=== PATIENT | male | born 1955 | race Caucasian/White ===

== ENCOUNTER 2019-07-16 10:19 | Outpatient (CLI) | payer OTHER, SELFPAY ==
[2019-07-16 13:28] LABS: Blood Urea Nitrogen 10 mg/dL (9-20); Calcium 9.5 mg/dL (8.4-10.2); Carbon Dioxide 25 mmol/L (22-30); Chloride 100 mmol/L (98-107); Cholesterol 195 mg/dL (0-200); Estimated Glomerular Filt Rate > 60; Glucose 107 mg/dL (75-110); HDL Direct 53 mg/dL; Potassium 4.4 mmol/L (3.4-5.0); Sodium 137 mmol/L (137-145); Triglycerides 57 mg/dL (<150)
[2019-07-16 13:39] LABS: LDL Cholesterol Direct 131 mg/dL
[2019-07-16 13:59] LABS: Prostate Specific Antigen 1.9 ng/mL (< OR = 4.0)
== END 2019-07-16 10:20 | disposition home or self-care (01) ==
LOC: ANHWCLAB 10:24
PROVIDERS: PCP Internal Medicine; Visit Provider Internal Medicine
DX: R03.0 Elevated blood-pressure reading, without diagnosis of hypertension (principal); Z12.5 Encounter for screening for malignant neoplasm of prostate; E78.5 Hyperlipidemia, unspecified
CPT/HCPCS: 36415; 80048; 80061; 84153

== ENCOUNTER 2020-02-11 06:59 | Outpatient (CLI) | payer MEDICARE, OTHER, SELFPAY ==
--- NOTE | ~2020-02-11 | XR_ITS ---
EXAMINATION: XR abdomen/kub 1V INDICATION: Unspecified right-sided abdominal pain TECHNIQUE: Supine views of the abdomen were obtained on 2 radiographs. COMPARISON: None FINDINGS: The bowel gas pattern is normal. Phleboliths are noted in the pelvis. There is moderate lum bar spondylosis. No dilated loops of bowel are evident. IMPRESSION: 1. Unremarkable abdominal radiograph. Reviewed, dictated and finalized at location A.
== END 2020-02-11 07:00 | disposition home or self-care (01) ==
PROVIDERS: PCP Internal Medicine; Visit Provider Internal Medicine
DX: R10.9 Unspecified abdominal pain (principal)
CPT/HCPCS: 74018

== ENCOUNTER 2020-02-18 06:58 | Outpatient (CLI) | payer MEDICARE, OTHER, SELFPAY ==
--- NOTE | ~2020-02-18 | XR_ITS ---
EXAMINATION: XR chest 2V 02/18/2020 07:24 INDICATION: Chest pain PROCEDURE: 2 view chest COMPARISON: No prior studies for comparison. FINDINGS: The lungs are clear. The cardiomediastinal silhouette is within normal limits. There are no pleural effusions. There is no pneumothorax suspected. IMPRESSION: 1: NO ACUTE CARDIOPULMONARY DISEASE. Reviewed, dictated and finalized at location A.
== END 2020-02-18 06:59 | disposition home or self-care (01) ==
PROVIDERS: PCP Internal Medicine; Visit Provider Internal Medicine
DX: R07.9 Chest pain, unspecified (principal)
CPT/HCPCS: 71046

== ENCOUNTER 2020-03-31 13:45 | Outpatient (CLI) | payer MEDICARE, OTHER, SELFPAY ==
--- NOTE | ~2020-03-31 | XR_ITS ---
EXAMINATION: XR hip LT min 2V DATE: 03/31/2020 14:31 INDICATION: Left hip pain. TECHNIQUE: 2 views of left hip were obtained. COMPARISON: Abdomen radiographs 02/11/20 FINDINGS: Bone alignment is normal. No fracture. Osteopenia is noted. There is mild left hip osteoart hritis. IMPRESSION: 1. Mild left hip osteoarthritis. Reviewed, dictated and finalized at location A.
[2020-03-31 14:16] LABS: Hematocrit 29.4 % (42.0-52.0); Hemoglobin 9.5 g/dL (14.0-18.0); Immature Platelet Fraction Pct 10.6 % (0.9-11.2); Mean Corpuscular HGB Conc 32.3 g/dl (32-36); Mean Corpuscular Hemoglobin 30.4 pg (26-34); Mean Corpuscular Volume 94.2 fl (80-100); Platelet Count Result 41 k/mm3 (150-375); Red Blood Count 3.12 M/mm3 (4.6-6.20); Red Cell Distribution Width 17.8 % (11.5-14.5); White Blood Count 11.4 K/mm3 (4.5-10.0)
[2020-03-31 14:27] LABS: Alanine Aminotransferase 23 U/L (4-50); Alkaline Phosphatase 310 U/L (38-126); Anion Gap 10 mmol/L (8-16); Aspartate Amino Transferase 60 U/L (17-59); Blood Urea Nitrogen 21 mg/dL (9-20); Calcium 10.7 mg/dL (8.4-10.2); Carbon Dioxide 29 mmol/L (22-30); Chloride 99 mmol/L (98-107); Estimated Glomerular Filt Rate > 60; Glucose 127 mg/dL (75-110); Potassium 4.6 mmol/L (3.4-5.0); Sodium 138 mmol/L (137-145)
[2020-03-31 15:22] LABS: Atypical Lymphocytes Present; Band Neutrophils Percent 2 % (0-6); Eosinophils Absolute Manual 0.11 K/mm3 (0.02-0.5); Eosinophils Percent Manual 1 % (0-4); Lymphocytes Absolute Manual 5.01 K/mm3 (1.1-4.5); Metamyelocytes Percent 6 %; Monocytes Absolute Manual 1.02 K/mm3 (0.1-0.90); Monocytes Percent Manual 9 % (3-9); Neutrophils Absolute Manual 4.56 K/mm3 (1.3-6.7); Neutrophils Percent Manual 38 % (46-73); Nucleated Red Blood Cells 39 %; Platelet Estimate Decreased (Adequate); Total Cells Counted 100
[2020-03-31 15:23] LABS: Polychromasia 1+ (NORMAL)
== END 2020-03-31 13:46 | disposition home or self-care (01) ==
PROVIDERS: PCP Internal Medicine; Visit Provider Internal Medicine
DX: R63.4 Abnormal weight loss (principal); M25.559 Pain in unspecified hip
CPT/HCPCS: 36415; 73502; 80053; 85025; 85055

== ENCOUNTER 2020-04-03 15:35 | Outpatient (CLI) | payer MEDICARE, OTHER, SELFPAY ==
[2020-04-03 16:21] LABS: Parathyroid Intact 7.6 pg/mL (7.5-53.5)
[2020-04-03 17:06] LABS: Iron 100 ug/dL (49-181)
[2020-04-03 17:16] LABS: Percent Iron Saturation 34 % (20-50)
[2020-04-03 18:31] LABS: Ferritin > 2000.00 ng/mL (11.1-264)
[2020-04-06 05:35] LABS: Ionized Calcium 5.7 mg/dL (4.8-5.6)
[2020-04-06 21:08] LABS: Mitochondrial (M2) Ab (IgG) <=20.0 U (<=20.0)
[2020-04-07 14:37] LABS: Red Blood Cell Folate >1000 ng/mL RBC (>280)
[2020-04-08 20:49] LABS: Alkaline Phosphatase 268 U/L (35-144); Macrohepatic Isoenzymes 0 % (<=0)
== END 2020-04-03 15:36 | disposition home or self-care (01) ==
PROVIDERS: PCP Internal Medicine; Visit Provider Internal Medicine
DX: C64.9 Malignant neoplasm of unspecified kidney, except renal pelvis (principal); R74.8 Abnormal levels of other serum enzymes; E83.52 Hypercalcemia
CPT/HCPCS: 36415; 82330; 82607; 82728; 82747; 83519; 83520; 83540; 83550; 83970; 84075; 84080

== ENCOUNTER 2020-04-04 13:56 | Outpatient (RCR) | payer MEDICARE, OTHER, SELFPAY ==
--- NOTE | 2020-04-04 15:13 | PTOPEVAL ---
PHYSICAL THERAPY EVALUATION AND PLAN OF CARE Thank you for referring Brent Garcia to [facility] [place] Camilo will be on hold until he follows up with Dr. Mix. We will follow Camilo and update his care plan as needed. He was provided with HEP. Please review, sign, date and return this plan of care KATIE. I agree with and certify that the following plan of care is medically necessary. Referring Physician Date Attending Provider: Fer Wayne, Evaluation Diagnosis left groin pain, abdominal pain Onset January 2020 Subjective Information Brent is here today with c/o Query Text:As Reported By Patient/ left hip pain following what Family felt like a strain (he is familiar with groin strain). Since then he has experienced no change in hip pain, an increase in abdominal pain, and a new onset of bilateral rib pain. States that the rib pain is sometimes worse than hip pain and very much limits his mobility, especially bed mobility. He notes a 20# weight loss since January. He has had some recent blood work that is unclear but has definitely identified Vitamin B12 deficit which can lead to weight loss, decreased energy, and muscle tightness. He has very poor sleep right now and he has a very poor appetite. He was referred to Dr. Mix today. Has yet to set up an appointment. Diagnostic Tests X-Rays For This Problem Yes: abdomen, chest, x-ray: negative except for arthritis of hip and spine Prior Level of Function Medications: Celecoxib (replaced ibuprofen) Self Report Pain Assessment Left Hip(s) Reported Pain Level 6 Pain Description Aching,Pulling,Radiating, Shooting Pain Frequency Chronic,Continuous Lowest Pain Intensity 3 Greatest Pain Intensity 9 Pain Score Pain Score 6: Self Report Interventions Used Interventions Used By Clinicians Exercise Pain Relief Interventions Used By Heat,Inactivity/Rest,Water Patient Modality Lower Extremity Range of Motion General Lower Ext
--- NOTE | 2020-05-03 13:30 | PCPTNOTE ---
PHYSICAL THERAPY DISCHARGE NOTE Attending Provider: Fer Wayne DO Patient:Brent Garcia Date of :1955 I evaluated Brent for hip pain on 04/04/2020. He was placed on hold while he pursued an oncology referral. He has since been diagnosed with stage 4 prostate cancer metastasized left pelvis, lumbar spine, and left lower ribs. He will not be pursuing physical therapy at this time, but would be interested in the future when appropriate. Brent will be discharged at this time. Thank you for referring this patient to [facility]. Please review, sign, date and return this discharge summary KATIE. I have been updated about the patient's current status and I agree with discharge from the above service at this time. Referring Physician Date
== END 2020-05-05 08:43 | disposition home or self-care (01) ==
LOC: ANHPT 13:56
PROVIDERS: PCP Internal Medicine; Referring Provider Internal Medicine; Visit Provider Internal Medicine
DX: M25.559 Pain in unspecified hip (principal); R10.30 Lower abdominal pain, unspecified
CPT/HCPCS: 97162

== ENCOUNTER 2020-04-11 09:43 | Outpatient (CLI) | payer MEDICARE, OTHER, SELFPAY ==
--- NOTE | ~2020-04-11 | XR_ITS ---
EXAMINATION: BONE SURVEY/METASTATIC SURVEY DATE: 04/11/2020 INDICATION: Plasma cell disorder TECHNIQUE: A skeletal survey was performed including AP views of the chest, abdomen and pelvis; AP an d lateral/lateral swimmers views of the cervical, thoracic and lumbar spine; lateral view of the skul l, and AP and lateral views of the appendicular skeleton excluding the hands and feet. COMPARISON: None. FINDINGS: Multiple bilateral rib fractures with varying degrees of callus formation likely combination of subac [place] and chronic. Diffuse osteopenia. No discrete suspicious lytic or blastic bone lesions. Mild upper thoracic levocurvature with moderate thoracic spondylosis. Mild lumbar dextrocurvature with left-tavares ed wedging of L3 with 20% left-sided vertebral body height loss which appears new since the KUB perfo rmed 02/11/2020. Large degenerative loose body at the lateral gutter of the right suprapatellar pouch. Indolent solid appearing periosteal reaction along the bilateral femoral and tibial diaphyses most li belkys either related to venous stasis or enthesopathic ossification. IMPRESSION: 1. No suspicious lytic or blastic bone lesions. 2. Diffuse osteopenia with multiple bilateral rib fractures of varying ages and recent mild L3 compre ssion fracture with 20% left-sided vertebral body height loss. Reviewed, dictated and finalized at location A. WATER MACHINE OPERATOR IMPRESSION: 1. No suspicious lytic or blastic bone lesions. 2. Diffuse osteopenia with multiple bilateral rib fractures of varying ages and recent mild L3 compression fracture with 20% left-sided vertebral body height loss.
[2020-04-11 10:20] LABS: Hemoglobin 7.8 g/dL (14.0-18.0); Immature Platelet Fraction Pct 13.1 % (0.9-11.2); Mean Corpuscular HGB Conc 32.5 g/dl (32-36); Mean Corpuscular Hemoglobin 30.5 pg (26-34); Mean Corpuscular Volume 93.8 fl (80-100); Red Blood Count 2.56 M/mm3 (4.6-6.20); Red Cell Distribution Width 19.5 % (11.5-14.5); White Blood Count 9.3 K/mm3 (4.5-10.0)
[2020-04-11 10:22] LABS: Platelet Count Result 20 k/mm3 (150-375)
[2020-04-11 10:40] LABS: Band Neutrophils Percent 8 % (0-6); Eosinophils Absolute Manual 0.09 K/mm3 (0.02-0.5); Eosinophils Percent Manual 1 % (0-4); Lymphocytes Absolute Manual 4.65 K/mm3 (1.1-4.5); Metamyelocytes Percent 4 %; Monocytes Absolute Manual 0.46 K/mm3 (0.1-0.90); Monocytes Percent Manual 5 % (3-9); Neutrophils Absolute Manual 3.72 K/mm3 (1.3-6.7); Neutrophils Percent Manual 32 % (46-73); Nucleated Red Blood Cells 19 %; Total Cells Counted 100
[2020-04-11 10:41] LABS: Atypical Lymphocytes Present; Hypochromasia 2+ (NORMAL); Platelet Estimate Decreased (Adequate)
[2020-04-11 12:06] LABS: Iron 68 ug/dL (49-181)
[2020-04-11 12:18] LABS: Immunoglobulin A 122 mg/dL (70-400); Immunoglobulin G 1135 mg/dL (700-1600); Immunoglobulin M 39 mg/dL (40-230)
[2020-04-11 12:23] LABS: Percent Iron Saturation 21 % (20-50)
[2020-04-11 13:22] LABS: Erythrocyte Sedimentation Rate > 140 mm/hr (0-20)
[2020-04-11 15:20] LABS: Lactate Dehydrogenase 3005 U/L (313-618)
[2020-04-11 15:41] LABS: Ferritin > 2000.00 ng/mL (11.1-264)
[2020-04-13 22:58] LABS: Kappa\\Lambda Light Chains 0.82 (0.26-1.65); Lambda Light Chain 34.2 mg/L (5.7-26.3)
[2020-04-16 06:20] LABS: Albumin 3.3 g/dL (3.8-4.8); Alpha 1 Globulin 0.7 g/dL (0.2-0.3); Alpha 2 Globulin 0.6 g/dL (0.5-0.9); Beta 1 Globulin 0.5 g/dL (0.4-0.6); Gamma Globulin 0.9 g/dL (0.8-1.7); Protein, Total 6.4 g/dL (6.1-8.1)
== END 2020-04-11 09:44 | disposition home or self-care (01) ==
PROVIDERS: PCP Internal Medicine; Visit Provider Internal Medicine Hematology & Oncology
DX: D72.9 Disorder of white blood cells, unspecified (principal); D50.9 Iron deficiency anemia, unspecified; R97.20 Elevated prostate specific antigen [PSA]; M85.88 Other specified disorders of bone density and structure, other site
CPT/HCPCS: 36415; 77075; 82728; 82784; 83540; 83550; 83615; 83883; 84153; 84155; 84165; 85025; 85055; 85652

== ENCOUNTER 2020-04-12 07:38 | Outpatient (CLI) | payer MEDICARE, OTHER, SELFPAY ==
--- NOTE | ~2020-04-12 | CT_ITS ---
EXAMINATION: CT abdomen pelvis w con INDICATION: Plasma cell disorder TECHNIQUE: Computed tomographic images of the abdomen and pelvis were obtained after the administrati on of 100 cc of Omnipaque 350 intravenous contrast. The dose-length product (DLP) was 480.42 mGy-cm. Automated exposure control and iterative reconstruction technique were employed. COMPARISON: None available FINDINGS: There are small pleural effusions. Minimal dependent atelectasis is present in the lung bas es. The heart size is normal. Cysts of the liver measure up to 1.9 cm in the right hepatic lobe. The spleen, pancreas, and adrenal glands are normal. Stones are present in the nondistended gallbladder. Cysts of the kidneys measure up to 10 mm on the left. No pathologically enlarged abdominal or pelvic lymph nodes are identified. There is no free intraperitoneal gas or evidence of bowel obstruction. Th ere are widespread mixed lytic and sclerotic lesions throughout the visualized osseous structures. Th ere are multiple healing bilateral rib fractures. Fractures of the right L3 and L4 transverse process es are noted. There is a healing fracture of the left iliac wing. There is soft tissue density surrou nding the iliac wing at the site of fracture, likely combination of hematoma and periosteal reaction. IMPRESSION: 1. Widespread lytic and sclerotic lesions throughout the visualized osseous structures with fractures of the left iliac wing, multiple ribs, and the right L3 and L4 transverse processes. Reviewed, dictated and finalized at location A. NISTRATOR PESTICIDE IMPRESSION: 1. Widespread lytic and sclerotic lesions throughout the visualized osseous str uctures with fractures of the left iliac wing, multiple ribs, and the right L3 and L4 transverse processes.
== END 2020-04-12 07:39 | disposition home or self-care (01) ==
PROVIDERS: PCP Internal Medicine; Visit Provider Internal Medicine Hematology & Oncology
DX: D72.9 Disorder of white blood cells, unspecified (principal); R93.7 Abnormal findings on diagnostic imaging of other parts of musculoskeletal system
CPT/HCPCS: 74177; Q9967

== ENCOUNTER 2020-04-15 01:03 | Outpatient (CLI) | payer MEDICARE, OTHER, SELFPAY ==
[2020-04-15 22:26] LABS: SARS-CoV-2 RNA PCR Negative
== END 2020-04-15 01:04 | disposition home or self-care (01) ==
LOC: ANHCOVIDDT 01:04
PROVIDERS: PCP Internal Medicine; Visit Provider Internal Medicine Hematology & Oncology
DX: Z01.818 Encounter for other preprocedural examination (principal); Z20.828 Contact with and (suspected) exposure to other viral communicable diseases
CPT/HCPCS: 87635; C9803; U0003

== ENCOUNTER → 2020-04-18 02:45 | Day surgery (SDC) | payer MEDICARE, OTHER, SELFPAY ==
[2020-04-17 08:44] VITALS: BMI 24.4
--- NOTE | ~2020-04-18 | BM_ITS ---
EXAMINATION: CCL bone marrow asp w bx diag ORDER COMPLETED DATE: 04/18/2020 09:37 INDICATION: Plasma cell disorder TECHNIQUE: A time-out was performed to verify the patient's name, date of , and procedure to b e performed. The procedure including the risks, benefits, and alternatives was discussed with the pat ient. Risks discussed included bleeding and infection. The patient understood the risks and agreed to proceed. The skin overlying the left posterior iliac spine was prepped and draped in usual sterile f ashion. Anesthetic was administered with 1% lidocaine subcutaneously. Systemic analgesia was provided with 75 mcg fentanyl IV. An 11 gauge needle was inserted into the ilium with fluoroscopic guidance. Template was made at bone marrow aspiration which yielded minimal marrow, therefore the needle was ad vanced and a core marrow biopsy was obtained for touch prep. An 8 gauge needle was then inserted into the ilium with fluoroscopic guidance. 2 additional core bone marrow biopsies were obtained. There we re no immediate complications. Fluoroscopy exposure time was 0.1 minutes. The total number of images was 13. FINDINGS: Real-time fluoroscopy demonstrates a marker and subsequently core biopsy needle projecting over the left posterior iliac spine. IMPRESSION: 1. Successful fluoro-guided bone marrow core biopsy. Reviewed, dictated and finalized at location A. MOBILE SERVICE ADVISOR
[2020-04-18 07:26] VITALS: BP 117/65; PULSE 104; RESP 18; TEMP 36.1; O2SAT 95; BMI 23.4
[2020-04-18 07:39] LABS: Immature Platelet Fraction Pct 16.3 % (0.9-11.2); Mean Corpuscular HGB Conc 32.5 g/dl (32-36); Mean Corpuscular Hemoglobin 31.3 pg (26-34); Mean Corpuscular Volume 96.2 fl (80-100); Red Blood Count 2.11 M/mm3 (4.6-6.20); Red Cell Distribution Width 20.2 % (11.5-14.5); White Blood Count 14.2 K/mm3 (4.5-10.0)
[2020-04-18 07:48] LABS: Hemoglobin 6.6 g/dL (14.0-18.0)
[2020-04-18 07:49] LABS: Hematocrit 20.3 % (42.0-52.0)
[2020-04-18 07:50] LABS: Platelet Count Result 22 k/mm3 (150-375)
[2020-04-18 08:11] LABS: Prothrombin Time 14.1 Seconds (11.1-14.7)
[2020-04-18 09:41] VITALS: BP 111/71; PULSE 99; RESP 18; TEMP 37; O2SAT 99
[2020-04-18 09:55] VITALS: BP 113/80; PULSE 97; RESP 15; O2SAT 99
[2020-04-18 10:10] VITALS: BP 111/79; PULSE 93; RESP 16; O2SAT 98
[2020-04-18 10:25] VITALS: BP 121/95; PULSE 97; RESP 14; O2SAT 95
[2020-04-18 10:40] VITALS: BP 111/76; PULSE 97; RESP 14; O2SAT 97
== END | disposition home or self-care (01) ==
PROVIDERS: Radiology Diagnostic Radiology; PCP Internal Medicine; Visit Provider Internal Medicine Hematology & Oncology
DX: C79.51 Secondary malignant neoplasm of bone (principal)
CPT/HCPCS: 36415; 38222; 85027; 85055; 85610; 88305; 88313; 88333; 88342; 88365; J2250; J3010; J7040

== ENCOUNTER 2020-04-27 07:00 | Outpatient (RCR) | payer MEDICARE, OTHER, SELFPAY ==
[2020-04-27] VITALS (10 sets, daily range): BP systolic 99–128; BP diastolic 60–88; PULSE 84–101; RESP 16–18; TEMP 36.6–37.6; O2SAT 96–100
[2020-04-27 07:30] LABS: Hemoglobin 5.1 g/dL (14.0-18.0)
[2020-04-27 07:31] LABS: Hematocrit 16.1 % (42.0-52.0)
[2020-04-27] MEDS: ACETAMINOPHEN 325 MG TABLET 650 MG PO (08:45)
[2020-04-27] MEDS: diphenhydrAMINE HCl CAP 25 MG CAPSULE PO (08:46)
[2020-04-27] MEDS: SODIUM CHLORIDE 0.9% IV 250 ML 30 ML IV CONT (08:46)
[2020-04-27] MEDS: FUROSEMIDE INJ 40 MG/4 ML VIAL 20 MG IV PUSH (11:56)
== END 2020-07-26 23:59 | disposition home or self-care (01) ==
LOC: ANHCPCTRAN 07:00
PROVIDERS: PCP Internal Medicine; Visit Provider Internal Medicine Hematology & Oncology
DX: C61 Malignant neoplasm of prostate (principal); C79.51 Secondary malignant neoplasm of bone
CPT/HCPCS: 36415; 36430; 85014; 85018; 86850; 86900; 86901; 86923; 96374; A9270; J1940; J7050; P9016

== ENCOUNTER 2020-05-02 09:36 | Outpatient (CLI) | payer MEDICARE, OTHER, SELFPAY ==
--- NOTE | ~2020-05-02 | NM_ITS ---
EXAMINATION: NM bone scan whole body DATE: 05/02/2020 12:05 INDICATION: Prostate cancer metastatic to bone. TECHNIQUE: 24.5 mCi Tc-99m HDP was administered intravenously. Delayed whole-body scintigrams were o btained. COMPARISON: CT abdomen and pelvis 04/12/20 FINDINGS: There is widespread heterogeneous increased activity in the bones including the spine, pelv is, proximal femora, ribs, clavicles, sternum, scapulae, and humeri correlating with a mixed lytic an d sclerotic pattern of the bones by CT. IMPRESSION: 1. Widespread osseous metastatic disease. Reviewed, dictated and finalized at location A. RNET DATABASE SPECIALIST
== END 2020-05-02 09:37 | disposition home or self-care (01) ==
PROVIDERS: Visit Provider Internal Medicine Hematology & Oncology
DX: C61 Malignant neoplasm of prostate (principal); C79.51 Secondary malignant neoplasm of bone
CPT/HCPCS: 78306; A9561

== ENCOUNTER 2020-07-31 09:20 | Outpatient (CLI) | payer MEDICARE, OTHER, SELFPAY ==
--- NOTE | ~2020-07-31 | NM_ITS ---
EXAMINATION: NM bone scan whole body DATE: 07/31/2020 13:27 INDICATION: Prostate cancer TECHNIQUE: 85 mCi Tc-99m HDP was administered intravenously. Delayed whole-body scintigrams were obt ained. COMPARISON: Bone scan dated 05/02/[address] chest, abdomen and pelvis dated 07/31/2020 FINDINGS: Significant change in a diffuse pattern of heterogeneous increased bone uptake consistent with widesp read essentially confluent metastatic disease with mixed lytic and sclerotic pattern on CT. There are several more intense foci of increased uptake involving multiple ribs corresponding to healing rib f ractures on CT . IMPRESSION: 1. Widespread osseous metastatic disease with multiple pathologic bilateral rib fractures. Reviewed, dictated and finalized at location A. NG PROFESSIONALS
--- NOTE | ~2020-07-31 | CT_ITS ---
EXAMINATION: CT chest abdomen pelvis w con DATE: 07/31/2020 10:09 INDICATION: Prostate cancer TECHNIQUE: Computed tomography (CT) of the chest, abdomen, and pelvis was performed with 100 cc Omnip aque 350 intravenous contrast. Automated exposure control and iterative reconstruction technique were employed. Exam dose: 618.10 mGy-cm total exam DLP. COMPARISON: 04/2020 CT abdomen pelvis FINDINGS: CHEST CT: There is minimal dependent atelectasis in the right lower lobe. The lungs are otherwise clear of infi ltrate or consolidation. No pulmonary mass density is evident. Normal heart size. There is coronary artery atherosclerotic calcification. No thoracic aortic aneurys m or dissection. No hilar or mediastinal mass lesion or lymphadenopathy. Small hiatal hernia. No pericardial effusion. Minimal right pleural effusion. ABDOMEN/PELVIS CT: There are occasional hepatic cysts, measuring up to approximately 1.8 cm maximal dimension. Faceted gallstones are noted in the dependent aspect of the gallbladder lumen. No gallbladder wall th ickening or pericholecystic fluid or fat stranding. No bile duct or pancreatic duct dilatation. Normal splenic size. Normal morphology of the adrenal glands. Up to 9 mm left renal cyst. Otherwise no renal space occupying mass lesion or urinary tract calculus or hydroureteronephrosis. The urinary bladder is not very distended, appears essentially unremarkable . No prostate enlargement is evident. The seminal vesicles are unremarkable. Normal caliber of the abdominal aorta. There is calcification of the iliac arteries. No intraperitone al or retroperitoneal or pelvic mass lesion or adenopathy or ascites is detected. No bowel obstruction, bowel wall thickening, pneumatosis or intraperitoneal free air. Very small fat-containing umbilical hernia. Diffuse severe abnormal patchy sclerotic changes of the nearly entire included skeleton, likely due t o extensive skeletal metastatic disease. Bilateral pathologic rib fractures and right third and fourt h transverse process fractures and left iliac wing fracture are again noted. IMPRESSION: Severe extensive skeletal metastatic disease with multiple pathologic fractures Small hiatal hernia Hepatic cysts, left renal cyst Cholelithiasis Small right pleural effusion Reviewed, dictated and finalized at Location A. Reviewed, dictated and finalized at location A. ETING CONSULTANT IMPRESSION: Severe extensive skeletal metastatic disease with multiple patholo gic fractures Small hiatal hernia Hepatic cysts, left renal cyst Cholelithiasis Small right pleural effusion
== END 2020-07-31 09:21 | disposition home or self-care (01) ==
PROVIDERS: Family Provider Internal Medicine; PCP Internal Medicine; Visit Provider Internal Medicine Hematology & Oncology
DX: C61 Malignant neoplasm of prostate (principal); C79.51 Secondary malignant neoplasm of bone; K44.9 Diaphragmatic hernia without obstruction or gangrene; J90 Pleural effusion, not elsewhere classified; N28.1 Cyst of kidney, acquired; K76.9 Liver disease, unspecified
CPT/HCPCS: 36415; 71260; 74177; 78306; 80053; 82306; 84153; 85025; A9561; Q9967

== ENCOUNTER 2021-01-22 08:33 | Outpatient (CLI) | payer MEDICARE, OTHER, SELFPAY ==
--- NOTE | ~2021-01-22 | NM_ITS ---
EXAMINATION: NM bone scan whole body DATE: 01/22/2021 12:15 INDICATION: Anesthetic prostate cancer TECHNIQUE: 26.1 mCi Tc-99m HDP was administered intravenously. Delayed whole-body scintigrams were o btained. COMPARISON: Bone scan dated 07/31/[address] dated 01/22/2021 FINDINGS: Again seen are numerous scattered foci of increased uptake throughout the axial and appendicular skel eton. Several remain unchanged however there has been interval increase in number most notably in the sternum and bilateral humeri and femurs consistent with progression of metastatic disease. Decreased uptake associated with a linear pattern of focal uptake at healing posterior right seventh, eighth a nd ninth rib fractures. IMPRESSION: 1. Interval progression of widespread osseous metastatic disease throughout the axial and appendicula r skeleton. Reviewed, dictated and finalized at location A. IMPRESSION: 1. Interval progression of widespread osseous metastatic disease throughout the axial and appendicular skeleton.
--- NOTE | ~2021-01-22 | CT_ITS ---
EXAMINATION: CT chest abdomen pelvis w con DATE: 01/22/2021 09:04 INDICATION: Prostate cancer with bone metastases TECHNIQUE: Computed tomography (CT) of the chest, abdomen, and pelvis was performed with 100 mL Omnip aque-350 intravenous contrast. Automated exposure control and iterative reconstruction technique were employed. The dose-length product was 652.93 mGy-cm. COMPARISON: None FINDINGS: CHEST CT: Lungs are clear with no pneumonia, suspicious pulmonary nodules or pulmonary edema. There is a flat l ikely intrafissural lymph node measuring 7 x 2 mm along the junction of the right major and minor fis sures. Heart size is normal. No pericardial or pleural effusion. No pathologically enlarged thoracic lymphadenopathy. Ectatic ascending thoracic aorta measuring up to 3.8 cm in maximal diameter. Partial ly intrathoracic goiter. No pathologically enlarged thoracic lymphadenopathy. There is extensive hete rogeneous sclerosis throughout the bones consistent with widespread osseous metastatic disease. There are multiple nondisplaced pathologic rib fractures in various stages of healing. There is some extra osseous soft tissue thickening along couple of the left ribs. ABDOMEN/PELVIS CT: No interval change in a few small well-defined low-attenuation likely hepatic cysts, the largest dougie uring 1.8 cm in the right hepatic lobe. Couple gallstones within the otherwise normal gallbladder. No interval change in a 6 mm subtle enhancing lesion at the spleen which could represent a hemangioma. Pancreas and bilateral adrenal glands are normal. Small bilateral adrenal nodules measuring 12 mm on the left and 1.4 cm short axis diameter on the right, both which are increased since the prior study consistent with progression of metastatic disease. Bowels including the appendix are normal. Bladder is normal. Minimal ascites in the deep pelvis. No pathologically enlarged abdominal or pelvic lymphad enopathy. Additional extensive heterogeneous sclerosis throughout the bones consistent with widesprea d metastatic disease. Chronic nondisplaced likely pathologic fracture of the left iliac wing and the left acetabulum.. Unchanged mild chronic L3 compression fracture. IMPRESSION: 1. Enlarging bilateral adrenal nodules suspicious for metastatic disease. 2. No significant interval change in diffuse heterogeneous sclerosis throughout all of the visualized bones consistent with widespread osseous metastatic disease and multiple chronic likely pathologic f ractures. 3. Cholelithiasis. Reviewed, dictated and finalized at location A. IMPRESSION: 1. Enlarging bilateral adrenal nodules suspicious for metastatic disease. 2. No significant interval change in diffuse heterogeneous sclerosis throughout all of the visualized bones consistent with widespread osseous metastatic dise ase and multiple chronic likely pathologic fractures. 3. Cholelithiasis.
== END 2021-01-22 08:34 | disposition home or self-care (01) ==
LOC: ANHIMG 08:37
PROVIDERS: PCP Internal Medicine; Visit Provider Internal Medicine Hematology & Oncology
DX: C61 Malignant neoplasm of prostate (principal); C79.51 Secondary malignant neoplasm of bone; K80.20 Calculus of gallbladder without cholecystitis without obstruction
CPT/HCPCS: 71260; 74177; 78306; A9561; Q9967

== ENCOUNTER 2021-02-02 13:04 | Outpatient (CLI) | payer MEDICARE, OTHER, SELFPAY ==
[2021-02-02 14:05] LABS: Prothrombin Time 13.5 Seconds (11.1-14.7)
[2021-02-02 14:06] LABS: Partial Thromboplastin Time 27.8 SECONDS (22.3-36.8)
== END 2021-02-02 13:05 | disposition home or self-care (01) ==
LOC: ANHSURGERY 13:06
PROVIDERS: PCP Internal Medicine; Visit Provider Surgery
DX: C61 Malignant neoplasm of prostate (principal); C79.51 Secondary malignant neoplasm of bone; Z01.812 Encounter for preprocedural laboratory examination
CPT/HCPCS: 36415; 85610; 85730

== ENCOUNTER 2021-02-05 02:13 | Day surgery (SDC) | payer MEDICARE, OTHER, SELFPAY ==
[2021-02-01 14:07] VITALS: BMI 26.1
--- NOTE | ~2021-02-05 | XR_ITS ---
EXAMINATION: XR fl guide central line place DATE: 02/05/2021 11:56 INDICATION: Port catheter insertion TECHNIQUE: Single fluoroscopic spot image of the right side of the central chest was obtained during procedure performed by Dr. Chinchilla. Radiologist was not present for the imaging or procedure. The tremont unt of fluoroscopy time used during this procedure was 0.6 minutes. COMPARISON: None. FINDINGS: Right internal jugular central venous port catheter with distal tip extending into the supe rior vena cava with distal tip not clearly visualized. IMPRESSION: 1. Fluoroscopy utilized during right internal jugular central venous port catheter placement. See pro cedure note for further detail. Reviewed, dictated and finalized at location A. IMPRESSION: 1. Fluoroscopy utilized during right internal jugular central venous port radha ter placement. See procedure note for further detail.
--- NOTE | ~2021-02-05 | XR_ITS ---
EXAMINATION: XR chest port-a-cath/central INDICATION: Port-A-Cath insertion TECHNIQUE: Portable AP view the chest was obtained at 1220 hours COMPARISON: 02/18/2020 FINDINGS: A right internal jugular Port-A-Cath has been inserted which ends with its tip in the midsu perior vena cava. No pneumothorax is identified. There are widespread osseous metastases. Metastatic disease of the ribs gives the impression of lung opacities however none are seen. There is no pleural effusion. The cardiomediastinal silhouette is normal. IMPRESSION: 1. Right internal jugular Port-A-Cath ending in the midsuperior vena cava without evidence of pneumot horax. 2. Widespread osseous metastatic disease. Reviewed, dictated and finalized at location A. IMPRESSION: 1. Right internal jugular Port-A-Cath ending in the midsuperior vena cava witho ut evidence of pneumothorax. 2. Widespread osseous metastatic disease.
--- NOTE | 2021-02-05 07:46 | PM.HPGS ---
History of Present Illness History of Present Illness Consent: Risks, benefits, and alternatives of ultrasound-guided placement of a Port-A-Cath have been discussed and questions answered. Patient agrees to proceed with procedure. Chief complaint: prostate CA, metastatic to bone Narrative: Brent Garcia is a 65 year old male patient with recent history of prostate cancer with bone metastasis. He has recently failed 1 of his chemotherapeutic drugs and his pain change to another. Dr. Mix has requested placement of a Port-A-Cath for continued treatment. Patient also has some element of anemia related to his bone metastasis but otherwise is fairly healthy. Review of Systems Constitutional: Constitutional: Reports no additional constitutional complaints, Reports fatigue and Denies malaise Eyes: Eyes: Denies change in vision and Denies loss of vision ENT: Reports Normal hearing present, Denies change in voice, Denies dizziness, Denies hoarseness and Denies sore throat Cardiovascular: Cardiovascular: Denies chest pain, Denies leg edema and Denies dyspnea Respiratory: Respiratory: Denies cough, Denies dyspnea and Denies wheezing Gastrointestinal: Gastrointestinal: Denies hematochezia, Denies change in bowel habits and Denies heartburn Genitourinary: Genitourinary: Denies urinary frequency and Denies urinary incontinence Comments: Known prostate cancer with high PSA Neurologic: Reports Normal hearing present, Denies confusion, Denies dizziness, Denies loss of vision, Denies memory loss and Denies seizure-like activity Psychiatric: Psychiatric: Denies confusion, Denies depression and Denies memory loss Endocrine: Endocrine: Denies cold intolerance and Reports fatigue Hematologic/Lymphatic: Hematologic/Lymphatic: Denies easy bleeding and Denies easy bruising Comments: history of moderate thrombocytopenia related to his bony metastasis. History of anemia related to his cancer. Allergic/Immunologic: Allergic/Immunologic: Denies wheezing PMFSH Past Medical History Medical History Anemia Prostate cancer metastatic to bone (Unknown) Family History Family History Sibling Malignant neoplasm of prostate, Onset Age: 57 Father Malignant neoplasm of prostate Acute myocardial infarction Mother Cerebrovascular accident Social History Social History Smoking status: Never smoker Alcohol intake: former Alcohol use details: SOCIALLY IN PAST Substance use: never Substance use type: does not use Living arrangements: with family Additional living arrangements comments: [facility] Gender identity (if verbalized by the patient): Male Spiritual care concerns: No Meds Home Medications and Allergies Home Medications Medication Instructions Recorded Confirmed Type omega-3 fatty acids 1,000 mg 1,000 mg PO DAILY #30 cap 07/13/19 02/05/21 Rx capsule multivitamin [Chewable 1 tablet PO DAILY 04/17/20 02/05/21 History Multivitamin] calcium 600 mg PO BID 05/30/20 02/05/21 History Allergies Allergy/AdvReac Type Severity Reaction Status Date / Time No Known Allergies Allergy Verified 02/05/21 09:37 Exam Const: General: cooperative, healthy appearing, no acute distress, well developed and alert; No confusion Nutritional Appearance: well nourished Orientation/consciousness: patient oriented x3 and No confusion Limitations: no limitations HENMT: Head: normal to inspection, normocephalic and atraumatic Ears: hearing grossly normal bilaterally General nose exam: Normal external nose present Face and sinus: no edema Mouth: Yes Normal oral and palatal mucosa present and Yes lip normal Throat: posterior oropharynx normal Eyes: General: appearance normal, both eyes and all related structures Sclera: sclerae norm
[2021-02-05 09:46] VITALS: BMI 26.0
[2021-02-05 09:47] VITALS: BP 114/87; PULSE 72; RESP 18; TEMP 36.3; O2SAT 98
--- NOTE | 2021-02-05 10:04 | WPDANESEPPF ---
Anes - Initial Pre Proc Eval Procedure: Operation Date: 02/05/21 11:30 Proposed Procedures p Insertion Jovanna Cath - Erlin Chinchilla MD Date/Time: 02/05/21 10:04 Surgeon: Erlin Chinchilla MD Pre Op Diagnosis: prostate CA, metastatic to bone Patient Data Age: 65 Gender: M Height: 1.73 m Weight: 77.8 kg Last Vital Signs Temp 36.3 C L 02/05/21 09:47 Pulse 72 02/05/21 09:47 Resp 18 02/05/21 09:47 BP 114/87 02/05/21 09:47 Pulse Ox 98 02/05/21 09:47 Allergies Allergy/AdvReac Type Severity Reaction Status Date / Time No Known Allergies Allergy Verified 02/05/21 09:37 Home Medications Medication Instructions Recorded Confirmed Type omega-3 fatty acids 1,000 mg 1,000 mg PO DAILY #30 cap 07/13/19 02/05/21 Rx capsule multivitamin [Chewable 1 tablet PO DAILY 04/17/20 02/05/21 History Multivitamin] calcium 600 mg PO BID 05/30/20 02/05/21 History Patient hx anesthesia problems: none Family hx anesthesia problems: none PMFSH Past Medical History Medical History Anemia Prostate cancer metastatic to bone (Unknown) Family History Family History Sibling Malignant neoplasm of prostate, Onset Age: 57 Father Malignant neoplasm of prostate Acute myocardial infarction Mother Cerebrovascular accident Social History Social History Smoking status: Never smoker Alcohol intake: former Alcohol use details: SOCIALLY IN PAST Substance use: never Substance use type: does not use Living arrangements: with family Additional living arrangements comments: [facility] Gender identity (if verbalized by the patient): Male Spiritual care concerns: No Anes - Eval Final PreProcedure Day of Procedure 02/05/21 10:04 Patient weight: normal Heart: regular rate and rhythm Lungs: clear to auscultation Airway: Mallampati scale class II Neurological: alert and oriented Last oral intake: >/= 8 hours ASA classification: III Emergent: no Anesthetic plan: proceed Anesthesia type and monitoring: general GIVS and standard monitoring Informed Consent: The patient's anesthetic plan and its attendant risks and benefits were discussed with the patient/family/POA. Questions were solicited and answers provided to the satisfaction of the patient/family/POA.
[2021-02-05] MEDS: KETOROLAC 15 MG/ML VIAL (*BKC) IV PUSH (10:22)
[2021-02-05] MEDS: LACTATED RINGERS 1,000 ML 30 ML IV CONT (10:22)
--- NOTE | 2021-02-05 10:54 | WPDHPUPDATE1 ---
History and Physical Update Update Date/Time: 02/05/21 10:54 History and Physical has been reviewed, including an updated exam of the patient. There are NO changes in the patient's condition. Risks, benefits, and alternatives have been discussed and questions answered. Patient agrees to proceed with procedure.
[2021-02-05] MEDS: ceFAZolin 2 GM/D5W 50 ML 2 GM/50 ML BAG IVPB (11:12)
[2021-02-05] MEDS: BUPIVACAINE/EPINEPHRINE 0.25% 10 ML VIAL 30 ML INFILTRATE (11:52)
[2021-02-05 12:13] VITALS: BP 104/66; PULSE 57; RESP 16; O2SAT 96
[2021-02-05 12:43] VITALS: BP 100/68; PULSE 52; RESP 16; O2SAT 97
--- NOTE | 2021-02-05 12:53 | W.PM.PROC2 ---
Procedure Note - Detailed Date of Procedure 02/05/21 Pre-op Diagnosis prostate CA, metastatic to bone Post-op Diagnosis same Procedure Performed Ultrasound guided Placement of Jovanna-cath Surgeon Erlin Chinchilla MD Babcock Tester [ ] RN.OR process assistant Anesthesia local (with 0.5% Marcaine with epinepherine) and other (GIVS) Indications Need for venous access for chemotherapy. Findings Normal vascular anatomy in the right neck Description of Procedure Patient was seen and marked in the pre-op area prior to coming to the OR. Patient was brought to the operating room. Patient was placed supine on the operating table and general IV sedation was induced. The nurse core placer provided oxygen and IV sedation. Patient's head was carefully turned to the left side while in the supine position and the patient's entire neck and anterior chest on both sides was prepped and draped in the usual sterile fashion. Following this the appropriate time-out was completed confirming procedure and patient. We confirmed that all the needed equipment was present in the room. Following this the ultrasound probe was draped into the field and using the probe we carefully identified the carotid artery and jugular vein on the right neck. We then took a picture of the vascular anatomy of the neck and transferred from the ultrasound to the [employer] chart. I marked the skin directly over the Rt. internal jugular vein. I then used an 11 blade knife to make a small amy in the skin. Following this, using the continuous ultrasound guidance, a Cook needle was placed through the skin incision and on into this vein. I then was able to draw back good dark blood. Once this was completed a guidewire using a J-tip was advanced through the needle and then the needle and the guidewire cover were withdrawn. C-arm fluoroscopy was used to confirm that the guidewire was nicely in the venous system. Once this was confirmed with the C - arm, I preceded on by making the pocket for the port on the patient's anterior right chest approximately 3 centimeters below the clavicle overlying the chest wall. Local anesthetic was infiltrated into the skin where there was a transverse incision marked out. Incision was made and we made a pocket inferior to the incision with just a little dissection superior. The Bard low-profile port was tried in the pocket and seemed to fit well. Following this the catheter which had been placed on a tunneling device was tunneled from the port site on the anterior right chest up to the right neck where the small incision had been made slightly larger with an #11 blade knife. Then the catheter was pulled through so that we would have 15 centimeters to put into the central venous system once the dilation took place. Following this we placed the dilator and sheath over the guidewire in the jugular vein and carefully dilated the tract into the central venous system. The guidewire and dilator were then removed, carefully covering the end of the sheath to prevent air embolus. The end of the catheter which had been removed from the tunneling device and the tip checked was then inserted into the sheath and into the neck. I then carefully pulled the 2 arms of the tear-away sheath away as the offset press assistant held the catheter in position with a DeBakey forceps. Following this we checked the position of the catheter with C-arm fluoroscopy confirming that the tip seemed to be in the distal superior vena cava near the junction with the right atrium. I felt that it was in good position and so the rest of the catheter was pulled down toward the feet into the port site. We then measured to the appropriate position to cut the catheter to attach it to the port stem. Then the connector sealing device for the catheter port was placed onto the catheter and then the catheter cut to the appropriate length and inserted onto the stem of the port. Then the connector was advanced onto the stem over the cat
[2021-02-05 13:13] VITALS: BP 123/80; PULSE 53; RESP 16; O2SAT 100
[2021-02-05 15:25] VITALS: BP 124/84; PULSE 55; RESP 16; O2SAT 100
== END 2021-02-05 13:35 | disposition home or self-care (01) ==
PROVIDERS: PCP Internal Medicine; Visit Provider Surgery
PROC: (CPT 36561; principal; 2021-02-05 11:30)
DX: C61 Malignant neoplasm of prostate (principal); C79.51 Secondary malignant neoplasm of bone; D64.9 Anemia, unspecified; E78.5 Hyperlipidemia, unspecified; R74.8 Abnormal levels of other serum enzymes; D69.6 Thrombocytopenia, unspecified
CPT/HCPCS: 36561; 76937; 77001; C1788; J0690; J1644; J1885; J2250; J2704; J3010; J7030; J7120

== ENCOUNTER 2021-04-26 07:58 | Outpatient (CLI) | payer MEDICARE, OTHER, SELFPAY ==
--- NOTE | ~2021-04-26 | NM_ITS ---
EXAMINATION: NM bone scan whole body DATE: 04/26/2021 12:27 INDICATION: Prostate cancer metastatic to bone. TECHNIQUE: 24.69 mCi Tc-99m HDP was administered intravenously. Delayed whole-body scintigrams were obtained. COMPARISON: Bone scan 01/22/2021, CT the chest, abdomen, and pelvis 04/26/2021 FINDINGS: There are innumerable foci of increased activity scattered throughout the axial skeleton an d proximal extremities correlating with sclerotic lesions by CT with interval worsening in number and distribution. IMPRESSION: 1. Widespread osseous metastatic disease, worsened from 01/22/21. Reviewed, dictated and finalized at location A. CLABLE PRODUCTS SORTER
--- NOTE | ~2021-04-26 | CT_ITS ---
EXAMINATION: CT chest abdomen pelvis w con EXAM DATE: 04/26/2021 08:36 INDICATION: Prostate cancer. TECHNIQUE: Spiral CT of the chest, abdomen and pelvis was performed following intravenous injection o f 100 mL Omnipaque 350. Axial, coronal and sagittal images chest, abdomen and pelvis were reviewed. Coronal maximum intensity pixel images of chest reviewed. The dose-length product (DLP) for this ex amination was 694.19 mGy-cm. The exposure was tailored according to patient size (auto mA exposure c ontrol), and iterative reconstruction (ASIR) was used as additional dose reduction technique. Compari son is made to prior examination from 01/22/2021. FINDINGS: Diffuse sclerotic bones, extensive osteoblastic disease with scattered chronic pathological fractures. CHEST: The lungs are clear. There is a small left pleural effusion, new compared to prior study. Tra cheobronchial tree is patent. There is no mediastinal, hilar or axillary lymphadenopathy. There i s no pneumothorax. Heart normal in size. There is mild coronary arterial calcification, arterial sclerosis. ABDOMEN PELVIS: The largest liver cyst is in the right liver lobe, measures 2 cm. The adrenal glands have continued to enlarge, with heterogeneous enhancement, now with right adrenal mass measuring 3.4 cm, several left adrenal nodules largest measuring 1.8 cm consistent with metastatic disease. Spleen, pancreas are unremarkable. A couple of poorly calcified small gallstones, gallbladder otherwise unre markable. Portal and splenic veins are patent. Kidneys enhance symmetrically. There is no hydronep hrosis. The prostate is unremarkable. The bladder is unremarkable. There is no retroperitoneal or pelvic lymphadenopathy. The appendix is not positively visualized. There is no pericecal inflammatory change to suggest appe ndicitis. The stomach and small bowel are unremarkable. There is expected amount of colonic stool. No free intraperitoneal gas. IMPRESSION: 1. Diffuse osteoblastic disease with chronic pathological fractures unchanged. 2. Continued enlargement of adrenal metastatic lesions. 3. Development of small left pleural effusion. 4. Cholelithiasis. Reviewed, dictated and finalized at location B. TS ATHLETIC TRAINER
== END 2021-04-26 07:59 | disposition home or self-care (01) ==
PROVIDERS: PCP Internal Medicine; Visit Provider Internal Medicine Hematology & Oncology
DX: C61 Malignant neoplasm of prostate (principal); C79.51 Secondary malignant neoplasm of bone; K80.20 Calculus of gallbladder without cholecystitis without obstruction; J90 Pleural effusion, not elsewhere classified
CPT/HCPCS: 71260; 74177; 78306; A9561; Q9967

== ENCOUNTER 2021-06-07 06:42 | Outpatient (CLI) | payer MEDICARE, OTHER, SELFPAY ==
--- NOTE | ~2021-06-07 | MR_ITS ---
EXAMINATION: MR brain/brain stem wo/w con DATE: 06/07/2021 08:18 INDICATION: Prostate cancer metastatic to bone. TECHNIQUE: Magnetic resonance imaging (MRI) of the brain and brainstem was performed without and with 15 mL MultiHance intravenous contrast. Sequences included sagittal and axial T1-weighted FSE, axial diffusion-weighted FS EPI, axial T2*-weighted GRE, axial T2-weighted FLAIR Propeller, and axial T2-we ighted Propeller. Postcontrast sequences included axial, sagittal, and coronal T1-weighted FSE. Appar ent diffusion coefficient (ADC) maps were created. COMPARISON: Bone scan 04/26/2021 FINDINGS: There are scattered areas of nonspecific increased T2-weighted signal intensity in the cere bral white matter, which is within normal limits for the patient's age. The pituitary is enlarged wit h height of 12 mm. There is a 9 x 5 mm mass in the pituitary may be hypoenhancing or nonenhancing. Th ere is no intracranial hemorrhage or acute infarction. The ventricles are normal in size. The orbits are normal. The mastoid air cells are normal. The paranasal sinuses are clear. There is no osseous me tastatic disease. IMPRESSION: 1. 9 mm pituitary mass. The differential diagnosis includes pituitary microadenoma and Rathke cleft c yst. Reviewed, dictated and finalized at location B. UTIVE DIRECTOR [employer]LO[employer] BRAND MARKETING IMPRESSION: 1. 9 mm pituitary mass. The differential diagnosis includes pituitary microaden champ and Rathke cleft cyst.
== END 2021-06-07 06:43 | disposition home or self-care (01) ==
PROVIDERS: PCP Internal Medicine; Visit Provider Internal Medicine Hematology & Oncology
DX: C61 Malignant neoplasm of prostate (principal); C79.51 Secondary malignant neoplasm of bone
CPT/HCPCS: 70553; A9577

== ENCOUNTER 2021-06-12 14:08 | Outpatient (CLI) | payer MEDICARE, OTHER, SELFPAY ==
--- NOTE | ~2021-06-12 | CT_ITS ---
EXAMINATION: CTA brain carotid EXAM DATE: 06/12/2021 14:49 INDICATION: H53.2 - Diplopia . Pituitary 9 mm mass. TECHNIQUE: Noncontrast head CT. Spiral CTA of the carotid arteries was performed with intravenous inj ection 100 cc of Omnipaque 350. Axial, coronal, sagittal reformatted images reviewed. Additional ref ormatted images created on dedicated 3-D workstation. NASCET comparable standard used to assess the degree of arterial stenosis. Spiral CT angiogram cerebral arteries performed with the same intraveno us injection of contrast. Source images of the brain CTA transferred to dedicated workstation for 3-D rotational image creation. Coronal, sagittal maximum intensity pixel images also reviewed. The dos e-length product (DLP) for this examination was 1764.08 mGy-cm. The exposure was tailored according to patient size, and iterative reconstruction (ASIR) was used as additional dose reduction technique . There is no prior study for comparison. FINDINGS: Mild bilateral carotid bulb arterial sclerosis, 0% stenosis bilaterally. The vertebral malathi stephanie are codominant. Mild bilateral carotid siphon arterial sclerosis. There is no carotid or verteb ral basilar arterial dissection or fibromuscular dysplasia. There are no cerebral artery aneurysms. T here is symmetric cerebral artery arborization. The sagittal, transverse and sigmoid sinuses enhance normally, no venous sinus thrombosis. Internal cerebral veins also enhance normally. Diffuse sclerosis of the bones, osteoblastic disease and enhancing parasellar soft tissue. Given the extensive osteoblastic disease, another consideration for the pituitary abnormality on brain MRI is e xtraosseous extension of osteoblastic disease. There is no acute intraparenchymal hemorrhage. No vickie dence of intraparenchymal brain mass lesion. No evidence of acute infarction. There is no mass effec t or midline shift. There is no obstructive hydrocephalus suspected. There are no extra-axial collec tions. Mild microangiopathy and atrophy. Moderate amount of left sphenoid sinus opacity. Incidental Findings: Diffuse cervical osteoblastic disease. IMPRESSION: 1. No acute carotid or intracranial findings. No aneurysm. 2. Parasellar soft tissue, could be extraosseous extension of metastatic disease. 3. Bilateral carotid bulb 0% stenosis. Reviewed, dictated and finalized at location A. INSPECTOR IMPRESSION: 1. No acute carotid or intracranial findings. No aneurysm. 2. Parasellar soft tissue, could be extraosseous extension of metastatic disea se. 3. Bilateral carotid bulb 0% stenosis.
== END 2021-06-12 14:09 | disposition home or self-care (01) ==
LOC: ANHIMG 14:14
PROVIDERS: PCP Internal Medicine; Visit Provider Psychiatry & Neurology Neurology
DX: H53.2 Diplopia (principal)
CPT/HCPCS: 70496; 70498; 96372; J0897; Q9967

== ENCOUNTER 2021-06-13 11:43 | Outpatient (CLI) | payer MEDICARE, OTHER, SELFPAY | END 2021-06-13 11:44 | disposition home or self-care (01) | LOC: ANHLAB 11:45 | PROVIDERS: PCP Internal Medicine; Visit Provider Internal Medicine Hematology & Oncology | DX: D35.2 Benign neoplasm of pituitary gland (principal) | CPT/HCPCS: 82530 ==

== ENCOUNTER 2021-06-16 21:27 | Inpatient (IN) | payer MEDICARE, OTHER, SELFPAY ==
--- NOTE | ~2021-06-16 | XR_ITS ---
EXAMINATION: XR abdomen NG/feed tube rechec DATE: 06/17/2021 22:06 INDICATION: Nasogastric tube adjustment. TECHNIQUE: An upright view of the abdomen was obtained. COMPARISON: CT abdomen and pelvis 06/16/2021 FINDINGS: There is gaseous distention of the colon. The small bowel is normal in caliber. The nasogas tric tube tip is in the stomach. There is widespread sclerosis of the bones. There are old healed isai ateral rib fractures. IMPRESSION: 1. Nasogastric tube tip in the stomach. 2. Gaseous distention of the colon, consistent with adynamic ileus. 3. Widespread sclerosis of the bones, consistent with metastatic prostate cancer. Reviewed, dictated and finalized at location B. LATOR PIN INSERTER IMPRESSION: 1. Nasogastric tube tip in the stomach. 2. Gaseous distention of the colon, consistent with adynamic ileus. 3. Widespread sclerosis of the bones, consistent with metastatic prostate bailee palafox
--- NOTE | ~2021-06-16 | XR_ITS ---
XR abdomen NG/feed tube insert INDICATION: Evaluate NG tube position. Abdominal pain. Prostate cancer. TECHNIQUE: Limited KUB perform for evaluating NG tube . COMPARISON: 06/16/20192009 FINDINGS: NG tube tip in the stomach. There are multiple dilated loops of small and large bowel, most likely ileus. There is diffuse sclerotic metastases throughout the visualized osseous structures.. IMPRESSION: 1: NG tube tip in the stomach. 2: Dilated small and large bowel, most likely ileus. 3: Diffuse sclerotic metastases, consistent with known prostate cancer. Reviewed, dictated and finalized at location A. TY COURT CLERK
--- NOTE | ~2021-06-16 | CT_ITS ---
EXAMINATION: CT abdomen pelvis w con DATE: 06/16/2021 23:51 INDICATION: Abdominal pain. Distention. TECHNIQUE: Computed tomography (CT) of the abdomen and pelvis was performed with 100 cc Omnipaque 350 intravenous contrast. The dose-length product was 586.03 mGy-cm. Automated exposure control and iterative reconstruction technique were employed. COMPARISON: CT dated 04/26/2021. FINDINGS: Patchy right lower lobe airspace disease, compatible with pneumonia. There is diffuse scler otic metastases. Indeterminate bilateral adrenal masses, most likely metastatic disease. There is severe distention of the colon without definite obstruction. There is mild thickening of the rectum with perirectal infiltration, suspicious for proctitis. No significant small bowel dilation. There are liver cysts. The spleen, pancreas, are unremarkable. Small low-density lesions in the left kidney, most likely cysts. There is mild bilateral hydronephrosis. There is significant urinary bladd er distention. Small amount of ascites. Small left and trace right pleural effusions. IMPRESSION: 1. Severe colon distention without obstruction, likely ileus or colonic pseudoobstruction. 2: Mild rectal wall thickening with perirectal stranding, suspicious for proctitis. 3: Right lower lobe airspace disease, consistent with pneumonia. Bilateral pleural effusions, left gr eater than right. 4: Bilateral adrenal masses, suspicious for metastatic disease. Consider correlation with MRI. Correl ate for history of malignancy. 5: Diffuse sclerotic metastases. Correlate for history of prostate cancer. Reviewed, dictated and finalized at location A. DIE MAKER IMPRESSION: 1. Severe colon distention without obstruction, likely ileus or colonic pseudoo bstruction. 2: Mild rectal wall thickening with perirectal stranding, suspicious for procti tis. 3: Right lower lobe airspace disease, consistent with pneumonia. Bilateral pleu ral effusions, left greater than right. 4: Bilateral adrenal masses, suspicious for metastatic disease. Consider correl ation with MRI. Correlate for history of malignancy. 5: Diffuse sclerotic metastases. Correlate for history of prostate cancer.
--- NOTE | ~2021-06-16 | US_ITS ---
EXAMINATION: US renal BI DATE: 06/20/2021 17:15 INDICATION: Hydronephrosis TECHNIQUE: Multiple grayscale and Doppler ultrasound images of the kidneys were obtained. COMPARISON: None. FINDINGS: The right kidney measures 9.8 x 5.4 x 5.2 cm. The left kidney measures 10 x 5.8 x 5.6 cm an d contains an 11 mm cyst. The kidneys demonstrate normal parenchymal echogenicity. There is mild bila teral hydronephrosis. The bladder demonstrates mild wall thickening. IMPRESSION: 1. Mild hydronephrosis of the kidneys. 2. Wall thickening of the urinary bladder which could reflect cystitis versus chronic outlet obstruct ion. Reviewed, dictated and finalized at location F. LE THREADER IMPRESSION: 1. Mild hydronephrosis of the kidneys. 2. Wall thickening of the urinary bladder which could reflect cystitis versus c hronic outlet obstruction.
--- NOTE | ~2021-06-16 | XR_ITS ---
EXAMINATION: XR abdomen NG/feed tube rechec DATE: 06/18/2021 03:34 INDICATION: Nasogastric tube accidentally partially withdrawn. Reassess placement. TECHNIQUE: A supine view of the abdomen and lower chest was obtained for evaluation of feeding tube placement. COMPARISON: 06/17/2021 FINDINGS: Nasogastric tube tip in proximal side port in the body of the stomach. Right internal jugular central venous port catheter with distal tip at the caudal superior vena cava. Numerous sclerotic bone lesio ns consistent with metastatic disease including several expansile rib lesions which project over both lungs. No definitive airspace opacities, pleural effusion or pneumothorax. Cardiomediastinal silhoue tte is normal. Gaseous distention of the colon. IMPRESSION: 1. Nasogastric tube in the stomach. 2. Numerous scattered sclerotic bone lesions consistent with metastatic disease. Reviewed, dictated and finalized at location A. MBLER WET WASH IMPRESSION: 1. Nasogastric tube in the stomach. 2. Numerous scattered sclerotic bone lesions consistent with metastatic disease .
--- NOTE | ~2021-06-16 | XR_ITS ---
XR chest 1V portable 06/17/2021 10:54 Indication: Aspiration pneumonia Procedure: AP portable chest Comparison: 02/05/2021 and 02/18/2020 Findings: Heart size normal. NG tube in the stomach. Port catheter tip in the SVC. Patchy bilateral a irspace disease, compatible with pneumonia. There has been progression of diffuse osteoblastic metast ases. Multiple healed bilateral rib fractures. Impression: 1: Patchy bilateral airspace disease, compatible with pneumonia. 2: Progression of osteoblastic metastases with healed bilateral rib fractures. Reviewed, dictated and finalized at location A. K WEIGHER Impression: 1: Patchy bilateral airspace disease, compatible with pneumonia. 2: Progression of osteoblastic metastases with healed bilateral rib fractures.
[2021-06-16 21:27] VITALS: BP 150/114; PULSE 112; RESP 25; TEMP 36.9; O2SAT 93
--- NOTE | 2021-06-16 22:09 | ED.GENADULT ---
HPI - General Adult General Chief complaint: Nausea/Vomiting/Diarrhea Stated complaint: COFFEE GROUND EMESIS X 4 Time Seen by Provider: 06/16/21 21:54 History of Present Illness HPI narrative: Patient 65-year-old gentleman who presents the emergency department with chief complaint of nausea and vomiting. Patient reports he has history of p.o. cancer and has been undergoing treatment by his oncologist the patient states that he has had decreased bowel movements and has been extremely weak recently the patient states that he has been having hard time ambulating and has been getting progressively weaker. The patient states that he has had decreased urine output as well and is concerned that he may be getting dehydrated. The patient also reports that he noticed that his abdomen has been progressively more distended Related Data Home Medications Medication Instructions Recorded Confirmed multivitamin 1 tablet PO DAILY 04/17/20 06/12/21 calcium 600 mg PO BID 05/30/20 06/12/21 ondansetron HCl 8 mg PO Q4-6H PRN 02/08/21 06/12/21 hydrocodone-acetaminophen 1 tablet PO Q4H PRN 04/09/21 06/12/21 prednisone 10 mg PO DAILY 05/21/21 06/12/21 Allergies Allergy/AdvReac Type Severity Reaction Status Date / Time No Known Allergies Allergy Verified 06/16/21 21:40 Review of Systems Review of Systems: A 10 system review of systems was completed on the patient and is negative except for what is stated in the HPI. Nursing and ancillary documentation was reviewed. PMFSH Past Medical History Medical History Anemia Prostate cancer metastatic to bone (Unknown) Family History Family History Sibling Malignant neoplasm of prostate, Onset Age: 57 Father Malignant neoplasm of prostate Acute myocardial infarction Mother Cerebrovascular accident Social History Social History Smoking status: Never smoker Alcohol intake: former Alcohol use details: SOCIALLY IN PAST Substance use: never Substance use type: does not use Additional living arrangements comments: [facility] Gender identity (if verbalized by the patient): Male Spiritual care concerns: No Exam Narrative: GENERAL: Ill-appearing, well-nourished, and in no acute distress. HEAD: Normocephalic, atraumatic. EYES: PERRLA and EOMI. ENT: Nares clear, no rhinorrhea or epistaxis. Mucous membranes moist. NECK: Supple. CHEST: Clear to auscultation. No respiratory distress. HEART: Regular rate and rhythm. No murmur heard. Normal peripheral pulses. ABDOMEN: Soft, diffuse mild tenderness moderately distended, normal active bowel sounds. EXTREMITIES: Normal range of motion. No edema. SKIN: Warm, dry, no rash. NEURO: No focal deficits. Alert and oriented x3. PSYCH: Normal mood and affect. Course Vital Signs Vital signs: Vital Signs Temperature 36.9 C 06/16/21 21:27 Pulse Rate 112 H 06/16/21 21:27 Respiratory Rate 25 H 06/16/21 21:27 Blood Pressure 150/114 H 06/16/21 21:27 Pulse Oximetry 93 06/16/21 21:27 Temperature 36.9 C 06/16/21 21:27 Pulse Rate 109 H 06/16/21 23:14 Respiratory Rate 31 H 06/16/21 23:14 Blood Pressure 108/77 06/16/21 23:14 Pulse Oximetry 94 06/16/21 23:14 Medical Decision Making Vital Signs Vital Signs: Vital Signs Temperature 36.9 C 06/16/21 21:27 Pulse Rate 112 H 06/16/21 21:27 Respiratory Rate 25 H 06/16/21 21:27 Blood Pressure 150/114 H 06/16/21 21:27 Pulse Oximetry 93 06/16/21 21:27 Temperature 36.9 C 06/16/21 21:27 Pulse Rate 109 H 06/16/21 23:14 Respiratory Rate 31 H 06/16/21 23:14 Blood Pressure 108/77 06/16/21 23:14 Pulse Oximetry 94 06/16/21 23:14 Lab Data Result diagrams: 06/16/21 22:10 06/16/21 22:10 Labs: Lab Results 06/16/21
[2021-06-16 22:17] LABS: Basophils Absolute Auto 0.1 K/mm3 (0.0-0.1); Basophils Percent Auto 0.5 % (0.2-1.2); Eosinophils Percent Auto 0.1 % (0-4.4); Hemoglobin 10.9 g/dL (14.0-18.0); Immature Granulocyte Absolute 1.28 K/mm3 (0.00-0.031); Immature Granulocyte Percent A 7.8 % (0-0.5); Lymphocytes Absolute Auto 1.86 K/mm3 (0.9-3.2); Lymphocytes Percent Auto 11.3 % (18.3-44.2); Mean Corpuscular Hemoglobin 27.7 pg (26-34); Mean Corpuscular Volume 83.8 fl (80-100); Mean Platelet Volume 8.6 fl (7.4-10.4); Monocytes Absolute Auto 0.9 K/mm3 (0.1-0.6); Monocytes Percent Auto 5.2 % (2.6-8.5); Neutrophils Absolute Auto 12.3 K/mm3 (1.3-6.7); Neutrophils Percent Auto 75.1 % (45.5-73.1); Nucleated Red Blood Cells Absolute Auto 0.1 K/mm3 (0.0-0.012); Nucleated Red Blood Cells Perc 0.4 % (0.0-0.2); Platelet Count Result 358 k/mm3 (150-375); Red Blood Count 3.94 M/mm3 (4.6-6.20); Red Cell Distribution Width 20.6 % (11.5-14.5); White Blood Count 16.4 K/mm3 (4.5-10.0)
[2021-06-16 22:27] LABS: INR 1.5; Partial Thromboplastin Time 34.8 SECONDS (22.3-36.8); Prothrombin Time 17.6 Seconds (11.1-14.7)
[2021-06-16 22:28] VITALS: BP 131/93; PULSE 114; RESP 26; O2SAT 92
[2021-06-16] MEDS: ONDANSETRON INJ 4 MG/2 ML VIAL IV PUSH (22:28)
[2021-06-16] MEDS: SODIUM CHLORIDE 0.9% IV 1,000 ML 999 ML IV CONT (22:28)
[2021-06-16 22:39] LABS: Alanine Aminotransferase 59 U/L (4-50); Albumin Level 3.3 g/dL (3.5-5.1); Alkaline Phosphatase 250 U/L (38-126); Anion Gap 16 mmol/L (8-16); Aspartate Amino Transferase 72 U/L (17-59); Bilirubin,Total 0.6 mg/dL (0.2-1.3); Blood Urea Nitrogen 21 mg/dL (9-20); Calcium 8.9 mg/dL (8.4-10.2); Carbon Dioxide 22 mmol/L (22-30); Chloride 87 mmol/L (98-107); Estimated CRCL calculation 82 ml/min; Estimated Glomerular Filt Rate > 60; Glucose 123 mg/dL (65-110); Lipase 51 U/L (23-300); Magnesium 2.3 mg/dL (1.6-2.3); Potassium 2.8 mmol/L (3.4-5.0); Sodium 125 mmol/L (137-145)
[2021-06-16 23:14] VITALS: BP 108/77; PULSE 109; RESP 31; O2SAT 94
[2021-06-16] MEDS: POTASSIUM CHLORIDE INJ 40 MEQ in SODIUM CHLORIDE 0.9% IV 500 ML 130 MEQ IVPB (23:19)
--- NOTE | 2021-06-16 23:24 | PC.NURSE ---
Assumed care of pt at this time. Pt at bedside, discussed POC. Pt on tele monitor w/ VSS. Pt depends changed and pt repositioned at this time. K+ gtt started by Marcelina MAN w/ bedside report.
--- NOTE | 2021-06-16 23:45 | PC.NURSE ---
Pt to CT scan via stretcher at this time.
[2021-06-16 23:49] LABS: Add Urine Microscopic? YES; Appearance Urine Clear (Clear); Bilirubin Urine Negative (Negative); Blood Urine Negative (Negative); Color Urine Yellow (Yellow); Glucose Urine UA Negative (Negative); Ketones Urine Negative (Negative); Leukocyte Esterase Ur Negative LEU/UL (Negative); Mucus Urine Rare /lpf; Nitrate Urine Negative (Negative); Protein Urine Negative (Negative); RBC Urine 0-2 /hpf (0-2); Specific Grav Ur 1.014 (1.001-1.035); Urobilinogen Urine Negative mg/dL (<2.0); WBC Urine 0-3 /hpf
[2021-06-16 23:57] LABS: Lactic Acid Reflex 1.9 mmol/L (0.7-2.1)
--- NOTE | 2021-06-17 01:12 | PM.IMHP ---
H&P: HPI History of Present Illness Date/Time: 06/17/21 01:12 Chief Complaint: Nausea and vomiting. Narrative: This is a 65-year-old male with past medical history significant for metastatic prostate CA, pituitary adenoma. Patient has been undergoing chemotherapy, is at bedside. Patient was brought to the emergency room after he had projectile vomiting, has been staying in bed for the last 5 days unable to get up due to weakness, worsening abdominal distension, decreased urine output, decreased oral intake, having visual hallucination, right eyelid ptosis, paresthesias in bilateral lower extremities, after chemotherapy treatment, denies any fevers, any rigors, any chills, any cough, any sputum production. Most of the history has been obtained from that is sitting at bedside patient has been able to give me pieces of information as well. Patient has had progression of disease with multiple metastasis according to patient was diagnosed 15 months ago. Preliminary workup was significant for CT of abdomen and pelvis with distended bowel loops and air-fluid levels bilateral lung bases pleural effusions and opacities, an overly distended bladder as well. Decision has been made to admit the patient for further evaluation management and treatment. Review of Systems Review of Systems: Projectile vomiting, distended abdomen, abdominal pain, generalized weakness, bed bound, paresthesias of lower extremities, visual hallucinations. Constitutional: Constitutional: Denies chills, Reports fatigue, Denies fever(s), Reports lethargy, Denies malaise, Denies night sweats, Reports poor appetite and Reports weakness Eyes: Eyes: Reports change in vision Comments: Right eye ptosis ENT: Denies dysphagia, Denies nasal congestion, Denies nasal discharge, Denies nasal obstruction and Denies odynophagia Cardiovascular: Cardiovascular: Denies chest pain, Denies pedal edema, Denies radiating jaw, neck or arm pain, Denies palpitations, Denies dyspnea on exertion and Denies orthopnea Respiratory: Respiratory: Denies chest congestion, Denies cough, Denies excessive phlegm production and Denies dyspnea Gastrointestinal: Gastrointestinal: Reports bloating, Denies dyspepsia, Denies heartburn, Denies diarrhea and Reports vomiting Comments: Abdominal distension. Genitourinary: Genitourinary: Denies dysuria and Denies flank pain Comments: Decreased urine output Musculoskeletal: Musculoskeletal: Reports muscle weakness, Reports numbness and Reports tingling Comments: Bilateral lower extremity Integumentary/Breasts: Skin/Breast: Denies rash Neurologic: Reports tingling and Reports paresthesias Comments: Bilateral lower extremities Psychiatric: Psychiatric: Reports no additional psychiatric complaints and Reports as per HPI Endocrine: Endocrine: Denies cold intolerance, Denies excessive sweating, Denies heat intolerance and Denies palpitations Hematologic/Lymphatic: Hematologic/Lymphatic: Reports no additional hematologic/lymphatic complaints and Reports as per HPI Allergic/Immunologic: Allergic/Immunologic: Reports no additional allergic/immunologic complaints and Reports as per HPI PMFSH Past Medical History Medical History Anemia Prostate cancer metastatic to bone (Unknown) Family History Family History Sibling Malignant neoplasm of prostate, Onset Age: 57 Father Malignant neoplasm of prostate Acute myocardial infarction Mother Cerebrovascular accident Social History Social History Smoking status: Never smoker Alcohol intake: former Alcohol use details: SOCIALLY IN PAST Substance use: never Substance use type: does not use Additional living arrangements comments: [facility] Gender identity (if verbalized by the patient): Male Spiritual ca
[2021-06-17 01:17] VITALS: BP 120/85; PULSE 108; RESP 32; O2SAT 93
[2021-06-17 02:14] VITALS: BP 103/66; PULSE 117; RESP 24; O2SAT 92
[2021-06-17] MEDS: SODIUM CHLORIDE 0.9% IV 1,000 ML 125 ML IV CONT (02:22)
[2021-06-17] MEDS: HYDROmorphone HCL INJ (*CRX) 1 MG/ML SYR IV PUSH ×3 (02:35→19:23)
[2021-06-17 02:54] VITALS: BP 116/79; PULSE 108; RESP 20; O2SAT 96
--- NOTE | 2021-06-17 03:07 | ADMGEN ---
This patient, Brent Garcia, was admitted to [facility] Surg Room 326-01. Patient/family oriented to hospital policies and general routines including ID bracelet, bed and alarms, visiting hours, pain management, procedures, bathroom and other care routines, personal items, smoking policy, room service/diet, and visiting hours. Information on how to activate the Rapid Response Team has been discussed. Patient/Family are encouraged to report perceived risks to care and to ask questions if they do not understand what they are told or what they should do.
[2021-06-17 03:17] VITALS: BMI 24.7
--- NOTE | 2021-06-17 03:27 | PC.NURSE ---
This patient, Brent Garcia, was admitted to [facility] Surg Room 326-01. Patient/family oriented to hospital policies and general routines including ID bracelet, bed and alarms, visiting hours, pain management, procedures, bathroom and other care routines, personal items, smoking policy, room service/diet, and visiting hours. Information on how to activate the Rapid Response Team has been discussed. Patient/Family are encouraged to report perceived risks to care and to ask questions if they do not understand what they are told or what they should do.
[2021-06-17 06:00] VITALS: BP 102/65; PULSE 102; RESP 20; TEMP 36.8; O2SAT 94
[2021-06-17] MEDS: HEPARIN SODIUM 5,000 UNITS/ML VIAL 5000 UNITS SUB-Q ×3 (07:10→22:38)
[2021-06-17 07:48] LABS: Hematocrit 26.5 % (42.0-52.0); Hemoglobin 8.7 g/dL (14.0-18.0); Mean Corpuscular HGB Conc 32.8 g/dl (32-36); Mean Corpuscular Hemoglobin 27.2 pg (26-34); Mean Corpuscular Volume 82.8 fl (80-100); Mean Platelet Volume 8.3 fl (7.4-10.4); Platelet Count Result 295 k/mm3 (150-375); Red Cell Distribution Width 20.2 % (11.5-14.5); White Blood Count 14.9 K/mm3 (4.5-10.0)
[2021-06-17 08:04] LABS: Alanine Aminotransferase 45 U/L (4-50); Albumin Level 2.7 g/dL (3.5-5.1); Alkaline Phosphatase 184 U/L (38-126); Anion Gap 10 mmol/L (8-16); Aspartate Amino Transferase 46 U/L (17-59); Bilirubin,Total 0.3 mg/dL (0.2-1.3); Blood Urea Nitrogen 19 mg/dL (9-20); Calcium 7.7 mg/dL (8.4-10.2); Carbon Dioxide 21 mmol/L (22-30); Chloride 95 mmol/L (98-107); Estimated CRCL calculation 82 ml/min; Estimated Glomerular Filt Rate > 60; Glucose 124 mg/dL (65-110); Potassium 2.8 mmol/L (3.4-5.0); Sodium 126 mmol/L (137-145)
[2021-06-17 08:26] LABS: Anisocytosis 1+ (NORMAL); Atypical Lymphocytes Present; Band Neutrophils Percent 1 % (0-6); Eosinophils Absolute Manual 0.14 K/mm3 (0.02-0.5); Eosinophils Percent Manual 1 % (0-4); Lymphocytes Absolute Manual 0.74 K/mm3 (1.1-4.5); Monocytes Absolute Manual 0.74 K/mm3 (0.1-0.90); Monocytes Percent Manual 5 % (3-9); Neutrophils Absolute Manual 13.26 K/mm3 (1.3-6.7); Neutrophils Percent Manual 88 % (46-73); Platelet Estimate Adequate (Adequate); Total Cells Counted 100
[2021-06-17 08:55] LABS: Magnesium 2.1 mg/dL (1.6-2.3)
[2021-06-17] MEDS: POTASSIUM CHLORIDE INJ 40 MEQ in SODIUM CHLORIDE 0.9% IV 500 ML 130 MEQ IVPB ×2 (09:35→16:47)
--- NOTE | 2021-06-17 11:23 | PM.CNGS ---
Assessment and Plan Assessment and plan (1) Colonic pseudoobstruction: Code(s): K59.81 - Rockham syndrome Status: Acute Assessment and Plan: multifactorial, needs electrolyte correction, also chemotx induced, good response to NG decompression and bowel rest, exam benign today, encourage OOB if possible (2) Prostate cancer metastatic to bone: Onset Date: Unknown Code(s): C61 - Malignant neoplasm of prostate; C79.51 - Secondary malignant neoplasm of bone Status: Acute Assessment and Plan: mgmt per oncology History of Present Illness Consult details Consult date: 06/17/21 Reason for consult: abdominal pain Requesting physician: Rissa Bartholomew MD Narrative: The patient is a 65-year-old male currently undergoing chemotherapy for metastatic prostate cancer, presenting to the emergency department complaining of significant weakness, abdominal distension and discomfort. The patient reports the symptoms have been progressively worsening over about the last week. The patient reports after his last treatment, he has developed significant weakness, anorexia. The patient reports that he has been unable to really get out of bed. The patient also reports progressive abdominal distention and discomfort. The patient also describes worsening nausea and vomiting. The patient reports very little flatus and little to no bowel function. The patient also describes right eye ptosis and bilateral lower extremity paresthesias. Review of Systems Constitutional: Constitutional: Reports as per HPI, Reports anorexia, Reports body ache(s), Denies chills, Reports fatigue, Denies fever(s), Reports lethargy, Reports malaise, Reports poor appetite, Reports weakness, Denies weight gain and Reports weight loss Eyes: Eyes: Reports no additional eye complaints ENT: Reports system reviewed and no additional complaints, except as documented Cardiovascular: Cardiovascular: Reports no additional cardiovascular complaints Respiratory: Respiratory: Reports no additional respiratory complaints Gastrointestinal: Gastrointestinal: Reports as per HPI, Reports abdominal pain, Reports belching, Reports bloating, Reports change in bowel habits, Reports constipation, Reports early satiety, Reports nausea and Reports vomiting Genitourinary: Genitourinary: Reports no additional male genitourinary complaints Musculoskeletal: Musculoskeletal: Reports myalgias and Reports muscle weakness Integumentary/Breasts: Skin/Breast: Reports system reviewed and no additional complaints, except as docu Neurologic: Reports system reviewed and no additional complaints, except as documented Psychiatric: Psychiatric: Reports no additional psychiatric complaints Endocrine: Endocrine: Reports no additional endocrine complaints Hematologic/Lymphatic: Hematologic/Lymphatic: Reports no additional hematologic/lymphatic complaints Allergic/Immunologic: Allergic/Immunologic: Reports no additional allergic/immunologic complaints [facility] Past Medical History Medical History (Updated 06/17/21 @ 11:31 by Brenda Cid MD) Anemia Prostate cancer metastatic to bone (Unknown) Family History Family History Sibling Malignant neoplasm of prostate, Onset Age: 57 Father Malignant neoplasm of prostate Acute myocardial infarction Mother Cerebrovascular accident Social History Social History Smoking status: Never smoker Alcohol intake: former Alcohol use details: SOCIALLY IN PAST Substance use: never Substance use type: does not use Additional living arrangements comments: [facility] Gender identity (if verbalized by the patient): Male Spiritual care concerns: No Meds Home Medications and Allergies Home Medications Medication Instructions Recorded Confirmed Type omega-3 fatty acids 1,000 mg 1,000 mg PO DA
--- NOTE | 2021-06-17 11:58 | WPDGICN ---
Assessment and Plan Assessment and plan (1) Colonic pseudoobstruction: Code(s): K59.81 - [place]olia syndrome Status: Acute Assessment and Plan: improving with medical therapy and ngt decompression no more distension by exam add reglan (2) Ileus: Code(s): K56.7 - Ileus, unspecified Status: Acute Assessment and Plan: npo, ngt in place surgery on board correct abnl lytes aggravated after recent chemotherapy and now with pneumonia (3) Prostate cancer metastatic to bone: Onset Date: Unknown Code(s): C61 - Malignant neoplasm of prostate; C79.51 - Secondary malignant neoplasm of bone Status: Acute Assessment and Plan: s/p treatment (4) Projectile vomiting without nausea: Code(s): R11.12 - Projectile vomiting Status: Acute Assessment and Plan: resolved with ngt iv protonix, add reglan (5) Acute urinary retention: Code(s): R33.8 - Other retention of urine Status: Acute (6) Diplopia: Code(s): H53.2 - Diplopia Status: Acute GI Consult Note Consult date/time: 06/17/21 11:58 Reason for consult: explosive n/v, abdominal distension HPI: Bernt Garcia is a 65 year old male with past medical history significant for metastatic prostate CA to bones recently undergoing chemotherapy which has given side effects of nausea with more constipation. He says that lately had decrease appetite and did not have BM for almost a week (normally will have 4-5 a week). Here with progressive abdominal distension then followed by intractable nausea and vomiting, also had visual hallucination, right eyelid ptosis, paresthesias in bilateral lower extremities (all of that after chemotherapy). CT of abdomen and pelvis reviewed, with distended bowel loops and air-fluid levels bilateral lung bases pleural effusions and opacities. NGT placed in ER and had large amount of gastric content, that helped and he is feeling much better now, no more abdominal pain and he is passing gas. Noted dark gastric content. Last colonoscopy at 51yo, never had egd. Review of Systems Constitutional: Constitutional: Reports fatigue Eyes: Eyes: Reports blurry vision ENT: Reports Normal hearing present Cardiovascular: Cardiovascular: Denies chest pain Respiratory: Respiratory: Denies dyspnea Gastrointestinal: Gastrointestinal: Reports abdominal pain, Reports constipation, Reports nausea and Reports vomiting Genitourinary: Genitourinary: Reports urinary hesitancy Musculoskeletal: Comments: h/o bone mets Integumentary/Breasts: Skin/Breast: Denies dry skin Neurologic: Denies headache(s) Psychiatric: Psychiatric: Denies homicidal ideation [facility] Past Medical History Medical History (Updated 06/17/21 @ 12:04 by Dereck Fagan MD) Anemia Ileus Prostate cancer metastatic to bone (Unknown) Family History Family History Sibling Malignant neoplasm of prostate, Onset Age: 57 Father Malignant neoplasm of prostate Acute myocardial infarction Mother Cerebrovascular accident Social History Social History Smoking status: Never smoker Alcohol intake: former Alcohol use details: SOCIALLY IN PAST Substance use: never Substance use type: does not use Additional living arrangements comments: [facility] Gender identity (if verbalized by the patient): Male Spiritual care concerns: No Meds Home Medications and Allergies Home Medications Medication Instructions Recorded Confirmed Type omega-3 fatty acids 1,000 mg 1,000 mg PO DAILY #30 cap 07/13/19 06/17/21 Rx capsule multivitamin 1 tablet PO DAILY 04/17/20 06/17/21 History calcium See Rx Instructions .ROUTE .COMPLEX 05/30/20 06/17/21 History ondansetron HCl 8 mg PO Q4-6H PRN 02/08/21 06/17/21 History hydrocodone-acetaminophen 1 tablet PO Q4H PRN 04/09/21
[2021-06-17 12:00] VITALS: BP 114/63; PULSE 92; RESP 14; TEMP 36.8; O2SAT 96
[2021-06-17] MEDS: METOCLOPRAMIDE HCL INJ 10 MG/2 ML VIAL 5 MG IV PUSH ×2 (12:44→18:22)
[2021-06-17 13:20] LABS: Hematocrit 27.9 % (42.0-52.0); Hemoglobin 8.9 g/dL (14.0-18.0)
[2021-06-17 13:24] LABS: Potassium 3.1 mmol/L (3.4-5.0); Sodium 126 mmol/L (137-145)
--- NOTE | 2021-06-17 14:26 | P.PNIM_ITS ---
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 * CT showed severe colonic distention without obstruction, likely to be ileus or colonic pseudo-obstruction * Appreciate gastroenterology and general surgery consultation. No need for surgical intervention at this time * Abdominal distension has improved * Continue with NG decompression * NPO diet * Increase activity. Appreciate PT/OT (2) Ileus: Code(s): K56.7 - Ileus, unspecified Status: Acute Assessment and Plan: Plan as above (3) Projectile vomiting without nausea: Code(s): R11.12 - Projectile vomiting Status: Acute Assessment and Plan: Secondary to pseudo-obstruction * Resolved with NG decompression * Appreciate GI consultation * RN reported concern of possible coffee-ground emesis. Will check gastric contents for occult blood * Continue IV fluid rehydration * Analgesics and antiemetics available as needed * NPO diet (4) Acute urinary retention: Code(s): R33.8 - Other retention of urine Status: Acute Assessment and Plan: Bladder distention evident on CT and patient endorsed decreased urine output * Continue roa catheter * Plan for voiding trial following improvement of pseudoobstruction * Consider urology consultation (5) Pneumonia: Qualifiers: Laterality: right Lung location: lower lobe of lung Pneumonia type: due to unspecified organism Qualified Code(s): J18.9 - Pneumonia, unspecified organism Code(s): J18.9 - Pneumonia, unspecified organism Status: Acute Assessment and Plan: CXR shows patchy bilateral airspace disease compatible with pneumonia * Aspiration pneumonia considered given emesis, though less likely with bilateral findings. Continue Zosyn at this time. Appreciate ST eval * Continue treatment with ceftriaxone and azithromycin for coverage of community-acquired pneumonia * Check COVID-19 and influenza given bilateral pneumonia findings. He did complete COVID vaccination but not booster. * Blood cultures pending * Supportive care. Patient denies respiratory symptoms. Maintaining adequate O2 sats (6) Electrolyte abnormality: Code(s): E87.8 - Other disorders of electrolyte and fluid balance, not elsewhere classified Status: Acute Assessment and Plan: Several electrolyte abnormalities * Hyponatremia: Likely secondary to dehydration. Continue IV fluids and recheck sodium this evening to ensure remaining stable * Hypokalemia: Likely secondary to vomiting. Potassium 2.8 this morning. Gave 40 mEq IV KCl and repeat potassium improved to 3.1. Administer additional 40 mEq KCl * Hypocalcemia: Calcium levels normalized when corrected for hypoalbuminemia * Monitor electrolytes closely (7) Anemia: Code(s): D64.9 - Anemia, unspecified Status: Acute Assessment and Plan: Chronic anemia likely secondary to cancer. * H&H reviewed and relatively consistent with baseline * Did have a slight decline in hemoglobin from admission, which may be dilutional given IV fluids * Reports of coffee-ground emesis (see above), therefore will repeat hemoglobin this evening to ensure remaining stable (8) Prostate cancer metastatic to bone: Onset Date: Unknown Code(s): C61 - Malignant neoplasm of prostate; C79.51 - Secondary malignant neoplasm of bone
--- NOTE | 2021-06-17 14:26 | PM.IMPN ---
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 CT showed severe colonic distention without obstruction, likely to be ileus or colonic pseudo-obstruction Appreciate gastroenterology and general surgery consultation. No need for surgical intervention at this time Abdominal distension has improved Continue with NG decompression NPO diet Increase activity. Appreciate PT/OT (2) Ileus: Code(s): K56.7 - Ileus, unspecified Status: Acute Assessment and Plan: Plan as above (3) Projectile vomiting without nausea: Code(s): R11.12 - Projectile vomiting Status: Acute Assessment and Plan: Secondary to pseudo-obstruction Resolved with NG decompression Appreciate GI consultation RN reported concern of possible coffee-ground emesis. Will check gastric contents for occult blood Continue IV fluid rehydration Analgesics and antiemetics available as needed NPO diet (4) Acute urinary retention: Code(s): R33.8 - Other retention of urine Status: Acute Assessment and Plan: Bladder distention evident on CT and patient endorsed decreased urine output Continue roa catheter Plan for voiding trial following improvement of pseudoobstruction Consider urology consultation (5) Pneumonia: Qualifiers: Laterality: right Lung location: lower lobe of lung Pneumonia type: due to unspecified organism Qualified Code(s): J18.9 - Pneumonia, unspecified organism Code(s): J18.9 - Pneumonia, unspecified organism Status: Acute Assessment and Plan: CXR shows patchy bilateral airspace disease compatible with pneumonia Aspiration pneumonia considered given emesis, though less likely with bilateral findings. Continue Zosyn at this time. Appreciate [facility] Continue treatment with ceftriaxone and azithromycin for coverage of community-acquired pneumonia Check COVID-19 and influenza given bilateral pneumonia findings. He did complete COVID vaccination but not booster. Blood cultures pending Supportive care. Patient denies respiratory symptoms. Maintaining adequate O2 sats (6) Electrolyte abnormality: Code(s): E87.8 - Other disorders of electrolyte and fluid balance, not elsewhere classified Status: Acute Assessment and Plan: Several electrolyte abnormalities Hyponatremia: Likely secondary to dehydration. Continue IV fluids and recheck sodium this evening to ensure remaining stable Hypokalemia: Likely secondary to vomiting. Potassium 2.8 this morning. Gave 40 mEq IV KCl and repeat potassium improved to 3.1. Administer additional 40 mEq KCl Hypocalcemia: Calcium levels normalized when corrected for hypoalbuminemia Monitor electrolytes closely (7) Anemia: Code(s): D64.9 - Anemia, unspecified Status: Acute Assessment and Plan: Chronic anemia likely secondary to cancer. H&H reviewed and relatively consistent with baseline Did have a slight decline in hemoglobin from admission, which may be dilutional given IV fluids Reports of coffee-ground emesis (see above), therefore will repeat hemoglobin this evening to ensure remaining stable (8) Prostate cancer metastatic to bone: Onset Date: Unknown Code(s): C61 - Malignant neoplasm of prostate; C79.51 - Secondary malignant neoplasm of bone Status: Acute Assessment and Plan: Patient is undergoing chemotherapy. Scheduled for chemotherapy on 06/19/2021 He will be in contact with his oncologist tomorrow to discuss rescheduling chemotherapy Subjective Date/time seen: 06/17/21 14:26 Interval history: Date of service: 06/17/2021 Brent Garcia is a 65 year old male with a history of prostate cancer with bone metastases undergoing chemotherapy who is seen in follow up for coloni
[2021-06-17 17:22] LABS: Influenza Control Positive
[2021-06-17 17:26] LABS: Gastric Negative Control Negative; Gastric Positive Control Positive; Occult Blood Gastric Fluid Negative; pH Gastric Fluid 2 (1-8)
[2021-06-17 17:49] LABS: SARS-CoV-2 RNA PCR Negative
[2021-06-17 21:13] LABS: Hematocrit 27.1 % (42.0-52.0); Hemoglobin 8.8 g/dL (14.0-18.0)
[2021-06-17] MEDS: PANTOPRAZOLE SODIUM IV 40 MG VIAL IV PUSH (21:13)
[2021-06-17] MEDS: PHENOL/SOD PHENO SPRAY CHERRY (*BKC) 1 SPRAY MUCOUS MEM (21:13)
[2021-06-17 21:41] LABS: Sodium 129 mmol/L (137-145)
[2021-06-17 22:00] VITALS: BP 113/72; PULSE 88; RESP 20; O2SAT 95
[2021-06-18] MEDS: SODIUM CHLORIDE 0.9% IV 1,000 ML 75 ML IV CONT ×2 (00:03→15:32)
[2021-06-18] MEDS: METOCLOPRAMIDE HCL INJ 10 MG/2 ML VIAL 5 MG IV PUSH ×5 (00:04→23:29)
--- NOTE | 2021-06-18 03:22 | PC.NURSE ---
Patient reported to RN that NG tube had partially withdrawn during sleep. Prior to being fully awake and remembering I was in the hospital , pt attempted to advance NG to proper placement prior to reporting to RN. RN assessed and advanced to previous numeric kirit of 68cm, KUB ordered to check placement and suction on hold pending confirmation of placement. Dr. Bartholomew notified.
[2021-06-18] MEDS: HYDROmorphone HCL INJ (*CRX) 1 MG/ML SYR IV PUSH ×3 (05:38→21:10)
[2021-06-18] MEDS: HEPARIN SODIUM 5,000 UNITS/ML VIAL 5000 UNITS SUB-Q ×3 (05:40→21:16)
[2021-06-18 06:00] VITALS: BP 122/71; PULSE 96; RESP 18; TEMP 36.4; O2SAT 95
[2021-06-18 08:00] VITALS: O2SAT 95
[2021-06-18] MEDS: PANTOPRAZOLE SODIUM IV 40 MG VIAL IV PUSH ×2 (09:20→21:11)
[2021-06-18] MEDS: PHENOL/SOD PHENO SPRAY CHERRY (*BKC) 1 SPRAY MUCOUS MEM (09:20)
--- NOTE | 2021-06-18 09:59 | PM.PNGS ---
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 Status: Acute Assessment and Plan: exam improved, will clamp NG and poss remove later today, start clears once NG out, encourage OOB Subjective Subjective Date/Time Seen: 06/18/21 09:59 feels better this am, having liquid BMs and gas, very little out of NG overnight Review of Systems Review of Systems: All systems reviewed & are unremarkable except as noted in HPI and below Exam Const: General: cooperative, comfortable and no acute distress Resp: Auscultation: clear to auscultation bilaterally Cardio: Rate: regular rate Rhythm: regular rhythm GI: Inspection: normal to inspection and distended GI Palp: No abdominal tenderness, Yes Soft to palpation, No Tenderness to palpation present (GI) and No Guarding due to palpation present (GI) Objective Data Vital Signs Vital Signs: Vital Signs - 24 hr 06/17/21 12:00 06/17/21 22:00 06/18/21 06:00 Temperature 36.8 C 36.4 C Pulse Rate 92 88 96 Respiratory Rate 14 20 18 Blood Pressure 114/63 113/72 122/71 Pulse Oximetry 96 95 95 Intake/Output Intake/Output: Intake & Output 06/15/21 06/16/21 06/17/21 06/18/21 23:59 23:59 23:59 23:59 Intake Total 1000 1250 350 Output Total 1200 1200 430 Balance -200 50 -80 Meds/Results Medications: Active Medications Generic Name Dose Route Start Last Admin Trade Name Freq PRN Reason Stop Dose Admin Heparin Sodium (Porcine) 5,000 units 06/17/21 06:00 06/18/21 05:40 Heparin Sodium 5,000 Units/Ml Vial SUB-Q 5,000 units Q8HR JESSICA Administration Hydromorphone HCl 1 mg 06/17/21 01:15 06/18/21 05:38 Hydromorphone Hcl Inj (*Crx) 1 Mg/Ml Syr IV PUSH 1 mg Q4H PRN Administration Pain Rated 7-10 Ceftriaxone Sodium/Dextrose 1 gm in 50 mls @ 100 mls/hr 06/17/21 22:00 06/17/21 22:55 Rocephin 1 Gm/D5w 50 Ml IVPB Infused Q24H JESSICA Infusion Azithromycin 500 mg in 250 mls @ 250 mls/hr 06/17/21 22:00 06/18/21 00:17 Zithromax IVPB Infused Q24H JESSICA Infusion Sodium Chloride 1,000 mls @ 75 mls/hr 06/17/21 01:15 06/18/21 00:09 Normal Saline Iv IV CONT Not Given .[id number] JESSICA Piperacillin/Tazobactam/Dextrose 3.375 gm in 50 mls @ 100 mls/hr 06/17/21 05:00 06/18/21 06:22 Zosyn 3.375 Gm/D5w 50ml Pm IVPB Infused Q6HR JESSICA Infusion Metoclopramide HCl 5 mg 06/17/21 12:00 06/18/21 05:40 Metoclopramide Hcl Inj 10 Mg/2 Ml Vial IV PUSH 5 mg Q6HR JESSICA Administration Ondansetron HCl 4 mg 06/17/21 01:15 Ondansetron Inj 4 Mg/2 Ml Vial IV PUSH Q4H PRN Nausea Pantoprazole Sodium 40 mg 06/17/21 21:00 06/18/21 09:20 Pantoprazole Sodium Iv 40 Mg Vial IV PUSH 40 mg Q12HR JESSICA Administration Phenol 1 spray 06/17/21 16:50 06/18/21 09:20 Phenol/Sod Pheno Trimble Osorio (*Bkc) MUCOUS MEM 1 spray TID PRN Administration Sore Throat Radiology Results: ITS Impressions Chest X-Ray 06/17/21 10:59 Impression: 1: Patchy bilateral airspace disease, compatible with pneumonia. 2: Progression of osteoblastic metastases with healed bilateral rib fractures. Abdomen/Pelvis CT 06/17/21 12:27 IMPRESSION: 1. Severe colon distention without obstruction, likely ileus or colonic pseudoobstruction. 2: Mild rectal wall thickening with perirectal stranding, suspicious for proctitis. 3: Right lower lobe airspace disease, consistent with pneumonia. Bilateral pleural effusions, left greater than right. 4: Bilateral adrenal masses, suspicious for metastatic disease. Consider correlation with MRI. Correlate for history of malignancy. 5: Diffuse sclerotic metastases. Correlate for history of prostate cancer. Abdomen X-Ray 06/18/21 08:38 IMPRESSION: 1. Nasogastric tube tip in the stomach. 2. Gaseous distention of the colon, consistent with adynamic ileus. 3. Widespread sclerosis of the bones, consistent with metastatic prostate c
--- NOTE | 2021-06-18 12:25 | PCSTNOTE ---
Please refer to the Bedside Swallow Evaluation in the EMR. Please note, silent aspiration cannot be ruled out at bedside.
--- NOTE | 2021-06-18 12:55 | PDONCCN ---
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 He has been dealing with drooping of the right eyelid likely secondary to the bone metastasis and plan was to start radiation therapy treatment tomorrow. He has been losing weight and complain of tiredness and fatigue. He is complaining of neuropathy involving bilateral feet. His bone pain is under good control. CT abdomen and pelvis showed CV: Distension without obstruction likely colonic pseudo-obstruction along with mild rectal wall thickening suspicious for proctitis. There was bilateral adrenal masses and diffuse bone metastasis. Surgery was consulted and NG suction was started. Labs showed mild anemia with hemoglobin of 8.8. He denies any bleeding. Review of Systems - Review of Systems All systems reviewed & are unremarkable except as noted in HPI and bel - Neurologic Reports system reviewed and no additional complaints, except as documented, Reports hearing normal, Reports numbness, Reports tingling, Reports paresthesias, Reports weakness, Denies headache(s) [facility] Medical History: Medical History (Last Updated 06/17/21 @ 12:04 by Dereck Fagan MD) Anemia Ileus Prostate cancer metastatic to bone Onset Date: Unknown Family History: Family History (Last Reviewed 06/17/21 @ 11:28 by Brenda Cid MD) Sibling Malignant neoplasm of prostate, Onset Age: 57 Father Malignant neoplasm of prostate Acute myocardial infarction Mother Cerebrovascular accident - Social History Social History: Social History (Last Reviewed 06/17/21 @ 11:28 by Brenda Cid MD) Gender Identity: Gender identity (if verbalized by the patient): Male Alcohol Use: Alcohol intake: former Alcohol use details: SOCIALLY IN PAST Substance Use: Substance use: never Substance use type: does not use Others: Spiritual care concerns: No Smoking Status: Smoking status: Never smoker Meds Home Medications Medication Instructions Recorded Confirmed Type omega-3 fatty acids 1,000 mg 1,000 mg PO DAILY #30 cap 07/13/19 06/17/21 Rx capsule multivitamin 1 tablet PO DAILY 04/17/20 06/17/21 History calcium See Rx Instructions .ROUTE .COMPLEX 05/30/20 06/17/21 History ondansetron HCl 8 mg PO Q4-6H PRN 02/08/21 06/17/21 History hydrocodone-acetaminophen 1 tablet PO Q4H PRN 04/09/21 06/17/21 History Allergies Allergy/AdvReac Type Severity Reaction Status Date / Time No Known Allergies Allergy Verified 06/16/21 21:40 Results - Labs CBC & Chem 7: 06/17/21 21:08 06/17/21 21:08 Labs: Short CBC 06/17/21 06/17/21 Range/Units 12:50 21:08 Hgb 8.9 L 8.8 L (14.0-18.0) g/dL Hct 27.9 L 27.1 L (42.0-52.0) % BMP 06/17/21 06/17/21 12:50 21:08 Sodium 126 L 129 L Potassium 3.1 L Assessment and Plan - Additional Plan Castrate resistant metastatic prostate cancer. Patient is on second-line chemotherapy with cabazitaxel. He has progressed through [facility]. He previously was on androgen deprivation therapy and developed progressive metastatic disease. Currently is dealing with drooping of the right eyelid and plan was to start radiation therapy treatment tomorrow. Patient was started him therapy treatment after the discharge. He is due for 2nd round of chemotherapy with cabazitaxel tomorrow as well which will be delayed for 1 week duration until he is better from his bowel obstruction. Small-bowel obstruction. Surgery service is following the patient. His abdomen lo
[2021-06-18 13:20] LABS: Hemoglobin 9.7 g/dL (14.0-18.0); Mean Corpuscular HGB Conc 31.3 g/dl (32-36); Mean Corpuscular Hemoglobin 27.3 pg (26-34); Mean Corpuscular Volume 87.3 fl (80-100); Mean Platelet Volume 8.5 fl (7.4-10.4); Platelet Count Result 302 k/mm3 (150-375); Red Blood Count 3.55 M/mm3 (4.6-6.20); Red Cell Distribution Width 20.4 % (11.5-14.5); White Blood Count 14.4 K/mm3 (4.5-10.0)
[2021-06-18 14:00] VITALS: BP 107/72; PULSE 88; RESP 18; TEMP 36.4; O2SAT 94
[2021-06-18 14:01] LABS: Anisocytosis 1+ (NORMAL); Band Neutrophils Percent 1 % (0-6); Lymphocytes Absolute Manual 0.57 K/mm3 (1.1-4.5); Monocytes Absolute Manual 0.14 K/mm3 (0.1-0.90); Monocytes Percent Manual 1 % (3-9); Neutrophils Absolute Manual 13.68 K/mm3 (1.3-6.7); Neutrophils Percent Manual 94 % (46-73); Platelet Estimate Adequate (Adequate); Poikilocytosis 1+ (NORMAL); Total Cells Counted 100
[2021-06-18 14:09] LABS: Alanine Aminotransferase 38 U/L (4-50); Alkaline Phosphatase 187 U/L (38-126); Anion Gap 9 mmol/L (8-16); Aspartate Amino Transferase 50 U/L (17-59); Bilirubin,Total 0.4 mg/dL (0.2-1.3); Blood Urea Nitrogen 11 mg/dL (9-20); Calcium 7.6 mg/dL (8.4-10.2); Carbon Dioxide 23 mmol/L (22-30); Chloride 99 mmol/L (98-107); Estimated CRCL calculation 92 ml/min; Estimated Glomerular Filt Rate > 60; Glucose 104 mg/dL (65-110); Potassium 3.5 mmol/L (3.4-5.0); Sodium 131 mmol/L (137-145)
--- NOTE | 2021-06-18 14:14 | P.PNIM_ITS ---
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 * CT showed severe colonic distention without obstruction, likely to be ileus or colonic pseudo-obstruction * Appreciate gastroenterology and general surgery consultation. No need for surgical intervention at this time * Abdominal distension has improved * NG tube has been clamped today per general surgery; possibly remove later today * NPO diet. Advance to clears if NG is removed. * Continue gentle IV fluid rehydration while NPO * Increase activity. Appreciate PT/OT (2) Ileus: Code(s): K56.7 - Ileus, unspecified Status: Acute Assessment and Plan: Plan as above (3) Projectile vomiting without nausea: Code(s): R11.12 - Projectile vomiting Status: Acute Assessment and Plan: Secondary to pseudo-obstruction * Resolved with NG decompression * Appreciate GI consultation * Gastric contents negative for occult blood. * Analgesics and antiemetics available as needed * NPO diet (4) Acute urinary retention: Code(s): R33.8 - Other retention of urine Status: Acute Assessment and Plan: Bladder distention evident on CT and patient endorsed decreased urine output * Continue roa catheter * Plan for voiding trial following improvement of pseudoobstruction (5) Pneumonia: Qualifiers: Laterality: right Lung location: lower lobe of lung Pneumonia type: due to unspecified organism Qualified Code(s): J18.9 - Pneumonia, unspecified organism Code(s): J18.9 - Pneumonia, unspecified organism Status: Acute Assessment and Plan: CXR shows patchy bilateral airspace disease compatible with pneumonia * Aspiration pneumonia considered given emesis, though unlikely with bilateral findings. ST eval performed with no dysphagia. Continue regular diet. Stop Zosyn as aspiration pneumoia unlikely. * Continue treatment with ceftriaxone and azithromycin for coverage of community-acquired pneumonia * COVID and influenza negative. * Check urinary legionella and pneumococcal antigens * Blood cultures pending * Supportive care. Patient denies respiratory symptoms. Maintaining adequate O2 sats (6) Electrolyte abnormality: Code(s): E87.8 - Other disorders of electrolyte and fluid balance, not elsewhere classified Status: Acute Assessment and Plan: Several electrolyte abnormalities * Hyponatremia: Likely secondary to dehydration. Resolved with IV fluids. Sodium 131 this morning * Hypokalemia: Likely secondary to vomiting. Improved. Potassium 3.5 today. Administer 20 mEq KCl as pt is NPO * Hypocalcemia: Calcium levels normal (8.4) when corrected for hypoalbuminemia * Monitor electrolytes closely (7) Anemia: Code(s): D64.9 - Anemia, unspecified Status: Acute Assessment and Plan: Chronic anemia likely secondary to cancer and chemotherapy. * H&H reviewed and relatively consistent with baseline * Appreciate oncology consultation * Iron studies pending * No evidence of blood loss. Gastric contents negative for occult blood. (8) Prostate cancer metastatic to bone: Onset Date: Unknown Code(s): C61 - Malignant neoplasm of prostate; C79.51 - Secondary malignant neoplasm of bone Status: Acute Assessment and Plan: Patient is undergoing chemotherapy. * Scheduled for chemot
--- NOTE | 2021-06-18 14:14 | PM.IMPN ---
Progress Note: A&P Assessment and Plan (1) Colonic pseudoobstruction: Code(s): K59.81 - Ruston syndrome Status: Acute Assessment and Plan: Presented with abdominal distention. CT showed severe colonic distention without obstruction, likely to be ileus or colonic pseudo-obstruction Appreciate gastroenterology and general surgery consultation. No need for surgical intervention at this time Abdominal distension has improved NG tube has been clamped today per general surgery; possibly remove later today NPO diet. Advance to clears if NG is removed. Continue gentle IV fluid rehydration while NPO Increase activity. Appreciate PT/OT (2) Ileus: Code(s): K56.7 - Ileus, unspecified Status: Acute Assessment and Plan: Plan as above (3) Projectile vomiting without nausea: Code(s): R11.12 - Projectile vomiting Status: Acute Assessment and Plan: Secondary to pseudo-obstruction Resolved with NG decompression Appreciate GI consultation Gastric contents negative for occult blood. Analgesics and antiemetics available as needed NPO diet (4) Acute urinary retention: Code(s): R33.8 - Other retention of urine Status: Acute Assessment and Plan: Bladder distention evident on CT and patient endorsed decreased urine output Continue roa catheter Plan for voiding trial following improvement of pseudoobstruction (5) Pneumonia: Qualifiers: Laterality: right Lung location: lower lobe of lung Pneumonia type: due to unspecified organism Qualified Code(s): J18.9 - Pneumonia, unspecified organism Code(s): J18.9 - Pneumonia, unspecified organism Status: Acute Assessment and Plan: CXR shows patchy bilateral airspace disease compatible with pneumonia Aspiration pneumonia considered given emesis, though unlikely with bilateral findings. ST eval performed with no dysphagia. Continue regular diet. Stop Zosyn as aspiration pneumoia unlikely. Continue treatment with ceftriaxone and azithromycin for coverage of community-acquired pneumonia COVID and influenza negative. Check urinary legionella and pneumococcal antigens Blood cultures pending Supportive care. Patient denies respiratory symptoms. Maintaining adequate O2 sats (6) Electrolyte abnormality: Code(s): E87.8 - Other disorders of electrolyte and fluid balance, not elsewhere classified Status: Acute Assessment and Plan: Several electrolyte abnormalities Hyponatremia: Likely secondary to dehydration. Resolved with IV fluids. Sodium 131 this morning Hypokalemia: Likely secondary to vomiting. Improved. Potassium 3.5 today. Administer 20 mEq KCl as pt is NPO Hypocalcemia: Calcium levels normal (8.4) when corrected for hypoalbuminemia Monitor electrolytes closely (7) Anemia: Code(s): D64.9 - Anemia, unspecified Status: Acute Assessment and Plan: Chronic anemia likely secondary to cancer and chemotherapy. H&H reviewed and relatively consistent with baseline Appreciate oncology consultation Iron studies pending No evidence of blood loss. Gastric contents negative for occult blood. (8) Prostate cancer metastatic to bone: Onset Date: Unknown Code(s): C61 - Malignant neoplasm of prostate; C79.51 - Secondary malignant neoplasm of bone Status: Acute Assessment and Plan: Patient is undergoing chemotherapy. Scheduled for chemotherapy on 06/19/2021 which will be rescheduled in 1 week Also scheduled to start radiation; will proceed following discharge Appreciate oncology consultation Subjective Date/time seen: 06/18/21 14:14 Interval history: Date of service: 06/18/2021 Brent Garcia is a 65 year old male with a history of prostate cancer with bone metastases undergoing chemotherapy who is seen in follow up for colonic pseudoobstruction. He is feeling better today. His abdominal
[2021-06-18 15:11] LABS: Iron 32 ug/dL (49-181)
[2021-06-18 15:21] LABS: Percent Iron Saturation 23 % (20-50)
[2021-06-18] MEDS: POTASSIUM CHLORIDE 20 MEQ TABLET PO (15:32)
[2021-06-18 16:01] LABS: Folic Acid 14.4 ng/mL (2.76->20); Vitamin B12 > 1000.0 pg/mL (239-931)
[2021-06-18 16:55] LABS: Ferritin > 2000.00 ng/mL (11.1-264)
--- NOTE | 2021-06-18 17:34 | WPDGIPROGNO ---
Progress Note: A&P Assessment and Plan (1) Ileus: Code(s): K56.7 - Ileus, unspecified Status: Acute Assessment and Plan: ngt will be removed doing better- probably related to recent chemotherapy CL diet as tolerated (2) Projectile vomiting without nausea: Code(s): R11.12 - Projectile vomiting Status: Acute Assessment and Plan: resolved (3) Prostate cancer metastatic to bone: Onset Date: Unknown Code(s): C61 - Malignant neoplasm of prostate; C79.51 - Secondary malignant neoplasm of bone Status: Acute Assessment and Plan: oncology on board (4) Acute urinary retention: Code(s): R33.8 - Other retention of urine Status: Acute Assessment and Plan: resolved (5) Secondary malignant neoplasm of bone: Code(s): C79.51 - Secondary malignant neoplasm of bone Status: Acute (6) Prostate CA: Code(s): C61 - Malignant neoplasm of prostate Status: Acute Subjective Date/time seen: 06/18/21 17:34 Interval history: better, ngt in place, he had BM Review of Systems Review of Systems: All systems reviewed & are unremarkable except as noted in HPI and below Exam Const: General: comfortable and no acute distress Other: ngt in place Eyes: Sclera: sclerae normal Other: Rt ptosis Neck: Neck: supple Resp: Auscultation: clear to auscultation bilaterally Cardio: Rate: regular rate GI: Inspection: non-distended GI Palp: Yes Soft to palpation and No Guarding due to palpation present (GI) Auscultation: normal bowel sounds Urinary Catheter: Urinary Catheter: patent and draining Skin: General skin exam: no rashes or lesions noted Neuro: Speech: normal speech Motor exam (neuro): Normal motor muscle tone present throughout Extrem: General: normal to inspection Psych: Mental Status: mental status grossly normal Objective Data Vital Signs Vital Signs: Vital Signs - 24 hr 06/17/21 22:00 06/18/21 06:00 06/18/21 14:00 Temperature 97.6 F 97.6 F Pulse Rate 88 96 88 Respiratory Rate 20 18 18 Blood Pressure 113/72 122/71 107/72 Pulse Oximetry 95 95 94 Intake/Output Intake/Output: Intake & Output 06/15/21 06/16/21 06/17/21 06/18/21 23:59 23:59 23:59 23:59 Intake Total 1000 1250 1350 Output Total 1200 1200 430 Balance -200 50 920 Meds/Results Medications: Active Medications Generic Name Dose Route Start Last Admin Trade Name Freq PRN Reason Stop Dose Admin Heparin Sodium (Porcine) 5,000 units 06/17/21 06:00 06/18/21 13:03 Heparin Sodium 5,000 Units/Ml Vial SUB-Q 5,000 units Q8HR JESSICA Administration Hydromorphone HCl 1 mg 06/17/21 01:15 06/18/21 13:10 Hydromorphone Hcl Inj (*Crx) 1 Mg/Ml Syr IV PUSH 1 mg Q4H PRN Administration Pain Rated 7-10 Ceftriaxone Sodium/Dextrose 1 gm in 50 mls @ 100 mls/hr 06/17/21 22:00 06/17/21 22:55 Rocephin 1 Gm/D5w 50 Ml IVPB Infused Q24H JESSICA Infusion Azithromycin 500 mg in 250 mls @ 250 mls/hr 06/17/21 22:00 06/18/21 00:17 Zithromax IVPB Infused Q24H JESSICA Infusion Sodium Chloride 1,000 mls @ 75 mls/hr 06/17/21 01:15 06/18/21 15:32 Normal Saline Iv IV CONT 75 mls/hr .[id number] JESSICA Administration Melatonin 3 mg 06/18/21 21:00 Melatonin 3 Mg Tablet PO HS JESSICA Metoclopramide HCl 5 mg 06/17/21 12:00 06/18/21 13:03 Metoclopramide Hcl Inj 10 Mg/2 Ml Vial IV PUSH 5 mg Q6HR JESSICA Administration Ondansetron HCl 4 mg 06/17/21 01:15 Ondansetron Inj 4 Mg/2 Ml Vial IV PUSH Q4H PRN Nausea Pantoprazole Sodium 40 mg 06/17/21 21:00 06/18/21 09:20 Pantoprazole Sodium Iv 40 Mg Vial IV PUSH 40 mg Q12HR JESSICA Administration Phenol 1 spray 06/17/21 16:50 06/18/21 09:20 Phenol/Sod Pheno [place] Osorio (*Bkc) MUCOUS MEM 1 spray TID PRN Administration Sore Throat Radiology Results: ITS Impressions Chest X-Ray 06/17/21 10:59 Impression: 1: Patchy bilateral a
[2021-06-18] MEDS: MELATONIN 3 MG TABLET PO (21:16)
[2021-06-18 22:00] VITALS: BP 106/70; PULSE 97; RESP 18; TEMP 36.9; O2SAT 95
[2021-06-19] MEDS: SODIUM CHLORIDE 0.9% IV 1,000 ML 75 ML IV CONT (05:22)
[2021-06-19] MEDS: METOCLOPRAMIDE HCL INJ 10 MG/2 ML VIAL 5 MG IV PUSH ×3 (05:23→17:40)
[2021-06-19] MEDS: HEPARIN SODIUM 5,000 UNITS/ML VIAL 5000 UNITS SUB-Q ×2 (05:23→22:11)
[2021-06-19 05:33] VITALS: BP 121/72; PULSE 92; RESP 18; TEMP 36.7; O2SAT 98
[2021-06-19 06:47] LABS: Hematocrit 28.3 % (42.0-52.0); Hemoglobin 8.9 g/dL (14.0-18.0); Mean Corpuscular HGB Conc 31.4 g/dl (32-36); Mean Corpuscular Hemoglobin 26.7 pg (26-34); Mean Platelet Volume 8.3 fl (7.4-10.4); Platelet Count Result 272 k/mm3 (150-375); Red Blood Count 3.33 M/mm3 (4.6-6.20); Red Cell Distribution Width 20.7 % (11.5-14.5); White Blood Count 12.9 K/mm3 (4.5-10.0)
[2021-06-19 06:52] LABS: Anion Gap 6 mmol/L (8-16); Blood Urea Nitrogen 7 mg/dL (9-20); Carbon Dioxide 24 mmol/L (22-30); Chloride 100 mmol/L (98-107); Estimated CRCL calculation 106 ml/min; Estimated Glomerular Filt Rate > 60; Glucose 117 mg/dL (65-110); Sodium 130 mmol/L (137-145)
[2021-06-19 08:00] VITALS: O2SAT 96
[2021-06-19] MEDS: POTASSIUM CHLORIDE 20 MEQ TABLET 40 MEQ PO (09:52)
[2021-06-19] MEDS: PANTOPRAZOLE SODIUM IV 40 MG VIAL IV PUSH ×2 (09:52→22:11)
--- NOTE | 2021-06-19 10:02 | PM.PNGS ---
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 Status: Acute Assessment and Plan: resolved, ADAT, exam benign, no acute surgical issues, will sign off, call c ?s, issues Subjective Subjective Date/Time Seen: 06/19/21 10:02 feels good, no abd pain, no N/V, iain clears, still c loose BMs Review of Systems Review of Systems: All systems reviewed & are unremarkable except as noted in HPI and below Exam Const: General: cooperative, comfortable and no acute distress Orientation/consciousness: patient oriented x3 Resp: Auscultation: clear to auscultation bilaterally Cardio: Rate: regular rate Rhythm: regular rhythm GI: Inspection: normal to inspection and non-distended GI Palp: No abdominal tenderness, Yes Soft to palpation, No Tenderness to palpation present (GI), No Guarding due to palpation present (GI) and No Rigid due to palpation Objective Data Vital Signs Vital Signs: Vital Signs - 24 hr 06/18/21 14:00 06/18/21 22:00 06/19/21 05:33 Temperature 36.4 C 36.9 C 36.7 C Pulse Rate 88 97 92 Respiratory Rate 18 18 18 Blood Pressure 107/72 106/70 121/72 Pulse Oximetry 94 95 98 Intake/Output Intake/Output: Intake & Output 06/16/21 06/17/21 06/18/21 06/19/21 23:59 23:59 23:59 23:59 Intake Total 1000 1250 2040 1240 Output Total 1200 1200 530 90 Balance -522 74 3328 1150 Meds/Results Medications: Active Medications Generic Name Dose Route Start Last Admin Trade Name Freq PRN Reason Stop Dose Admin Heparin Sodium (Porcine) 5,000 units 06/17/21 06:00 06/19/21 05:23 Heparin Sodium 5,000 Units/Ml Vial SUB-Q 5,000 units Q8HR JESSICA Administration Hydromorphone HCl 1 mg 06/17/21 01:15 06/18/21 21:10 Hydromorphone Hcl Inj (*Crx) 1 Mg/Ml Syr IV PUSH 1 mg Q4H PRN Administration Pain Rated 7-10 Ceftriaxone Sodium/Dextrose 1 gm in 50 mls @ 100 mls/hr 06/17/21 22:00 06/18/21 21:45 Rocephin 1 Gm/D5w 50 Ml IVPB Infused Q24H JESSICA Infusion Azithromycin 500 mg in 250 mls @ 250 mls/hr 06/17/21 22:00 06/18/21 22:20 Zithromax IVPB Infused Q24H JESSICA Infusion Sodium Chloride 1,000 mls @ 75 mls/hr 06/17/21 01:15 06/19/21 05:22 Normal Saline Iv IV CONT 75 mls/hr .[id number] JESSICA Administration Melatonin 3 mg 06/18/21 21:00 06/18/21 21:16 Melatonin 3 Mg Tablet PO 3 mg HS JESSICA Administration Metoclopramide HCl 5 mg 06/17/21 12:00 06/19/21 05:23 Metoclopramide Hcl Inj 10 Mg/2 Ml Vial IV PUSH 5 mg Q6HR JESSICA Administration Ondansetron HCl 4 mg 06/17/21 01:15 Ondansetron Inj 4 Mg/2 Ml Vial IV PUSH Q4H PRN Nausea Pantoprazole Sodium 40 mg 06/17/21 21:00 06/19/21 09:52 Pantoprazole Sodium Iv 40 Mg Vial IV PUSH 40 mg Q12HR JESSICA Administration Phenol 1 spray 06/17/21 16:50 06/18/21 09:20 Phenol/Sod Pheno [place] Osorio (*Bkc) MUCOUS MEM 1 spray TID PRN Administration Sore Throat Radiology Results: ITS Impressions Chest X-Ray 06/17/21 10:59 Impression: 1: Patchy bilateral airspace disease, compatible with pneumonia. 2: Progression of osteoblastic metastases with healed bilateral rib fractures. Abdomen/Pelvis CT 06/17/21 12:27 IMPRESSION: 1. Severe colon distention without obstruction, likely ileus or colonic pseudoobstruction. 2: Mild rectal wall thickening with perirectal stranding, suspicious for proctitis. 3: Right lower lobe airspace disease, consistent with pneumonia. Bilateral pleural effusions, left greater than right. 4: Bilateral adrenal masses, suspicious for metastatic disease. Consider correlation with MRI. Correlate for history of malignancy. 5: Diffuse sclerotic metastases. Correlate for history of prostate cancer. Abdomen X-Ray 06/18/21 08:38 IMPRESSION: 1. Nasogastric tube tip in the stomach. 2. Gaseous distention of the colon, consistent with adynamic ileus. 3. Widespread sclerosis of the bones, consisten
--- NOTE | 2021-06-19 12:44 | P.PNIM_ITS ---
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 Presented with abdominal distention. * CT showed severe colonic distention without obstruction, felt to be consistent with pseudo-obstruction * Appreciate gastroenterology and general surgery consultation. No need for surgical intervention at this time * Abdominal distension has improved * NG tube removed 06/18/21. * Tolerating clear liquids. Advance diet. * Will discontinue IV fluids as patient is tolerating PO intake * Increase activity. Appreciate PT/OT (2) Projectile vomiting without nausea: Code(s): R11.12 - Projectile vomiting Status: Acute Assessment and Plan: Secondary to pseudo-obstruction * Resolved with NG decompression * Appreciate GI and General surgery consults * Gastric contents negative for occult blood. * Analgesics and antiemetics available as needed (3) Acute urinary retention: Code(s): R33.8 - Other retention of urine Status: Acute Assessment and Plan: Bladder distention evident on CT and patient endorsed decreased urine output * Proceed with voiding trial today * Bladder scan as needed (4) Pneumonia: Qualifiers: Laterality: right Lung location: lower lobe of lung Pneumonia type: due to unspecified organism Qualified Code(s): J18.9 - Pneumonia, unspecified organism Code(s): J18.9 - Pneumonia, unspecified organism Status: Acute Assessment and Plan: CXR shows patchy bilateral airspace disease compatible with pneumonia * Continue treatment with ceftriaxone and azithromycin for coverage of community-acquired pneumonia * Aspiration pneumonia considered given emesis but felt to be unlikely with bilateral findings. ST eval performed with no dysphagia. Continue regular diet. * COVID and influenza negative. * Urinary legionella and pneumococcal antigens pending * Blood cultures pending, negative to date * Supportive care. Patient denies respiratory symptoms. Maintaining adequate O2 sats. Leukocytosis improving (5) Electrolyte abnormality: Code(s): E87.8 - Other disorders of electrolyte and fluid balance, not elsewhere classified Status: Acute Assessment and Plan: Several electrolyte abnormalities * Hyponatremia: Likely secondary to dehydration. Improved with IV fluids. Sodium 130 this morning * Hypokalemia: Likely secondary to vomiting and poor PO intake. 3.0 today. Administer 40 mEq PO KCl and continue to monitor * Hypocalcemia: Calcium levels improved when corrected for albumin. Continue to monitor CMP * Monitor electrolytes closely (6) Anemia: Code(s): D64.9 - Anemia, unspecified Status: Acute Assessment and Plan: Chronic anemia likely secondary to cancer and chemotherapy. * H&H reviewed and relatively consistent with baseline * Appreciate oncology consultation * No evidence of blood loss. * Continue to monitor H&H (7) Prostate cancer metastatic to bone: Onset Date: Unknown Code(s): C61 - Malignant neoplasm of prostate; C79.51 - Secondary malignant neoplasm of bone Status: Acute Assessment and Plan: Patient is undergoing chemotherapy. * Scheduled for chemotherapy on 06/19/2021 which will be rescheduled in 1 week * Also scheduled to start radiation; will proceed following discharge * Appreciate oncology consultation Subjective Date/time seen: 06/19/21 12:
--- NOTE | 2021-06-19 12:44 | PM.IMPN ---
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 Presented with abdominal distention. CT showed severe colonic distention without obstruction, felt to be consistent with pseudo-obstruction Appreciate gastroenterology and general surgery consultation. No need for surgical intervention at this time Abdominal distension has improved NG tube removed 06/18/21. Tolerating clear liquids. Advance diet. Will discontinue IV fluids as patient is tolerating PO intake Increase activity. Appreciate PT/OT (2) Projectile vomiting without nausea: Code(s): R11.12 - Projectile vomiting Status: Acute Assessment and Plan: Secondary to pseudo-obstruction Resolved with NG decompression Appreciate GI and General surgery consults Gastric contents negative for occult blood. Analgesics and antiemetics available as needed (3) Acute urinary retention: Code(s): R33.8 - Other retention of urine Status: Acute Assessment and Plan: Bladder distention evident on CT and patient endorsed decreased urine output Proceed with voiding trial today Bladder scan as needed (4) Pneumonia: Qualifiers: Laterality: right Lung location: lower lobe of lung Pneumonia type: due to unspecified organism Qualified Code(s): J18.9 - Pneumonia, unspecified organism Code(s): J18.9 - Pneumonia, unspecified organism Status: Acute Assessment and Plan: CXR shows patchy bilateral airspace disease compatible with pneumonia Continue treatment with ceftriaxone and azithromycin for coverage of community-acquired pneumonia Aspiration pneumonia considered given emesis but felt to be unlikely with bilateral findings. ST eval performed with no dysphagia. Continue regular diet. COVID and influenza negative. Urinary legionella and pneumococcal antigens pending Blood cultures pending, negative to date Supportive care. Patient denies respiratory symptoms. Maintaining adequate O2 sats. Leukocytosis improving (5) Electrolyte abnormality: Code(s): E87.8 - Other disorders of electrolyte and fluid balance, not elsewhere classified Status: Acute Assessment and Plan: Several electrolyte abnormalities Hyponatremia: Likely secondary to dehydration. Improved with IV fluids. Sodium 130 this morning Hypokalemia: Likely secondary to vomiting and poor PO intake. 3.0 today. Administer 40 mEq PO KCl and continue to monitor Hypocalcemia: Calcium levels improved when corrected for albumin. Continue to monitor CMP Monitor electrolytes closely (6) Anemia: Code(s): D64.9 - Anemia, unspecified Status: Acute Assessment and Plan: Chronic anemia likely secondary to cancer and chemotherapy. H&H reviewed and relatively consistent with baseline Appreciate oncology consultation No evidence of blood loss. Continue to monitor H&H (7) Prostate cancer metastatic to bone: Onset Date: Unknown Code(s): C61 - Malignant neoplasm of prostate; C79.51 - Secondary malignant neoplasm of bone Status: Acute Assessment and Plan: Patient is undergoing chemotherapy. Scheduled for chemotherapy on 06/19/2021 which will be rescheduled in 1 week Also scheduled to start radiation; will proceed following discharge Appreciate oncology consultation Subjective Date/time seen: 06/19/21 12:44 Interval history: Date of service: 06/19/2021 Brent Garcia is a 65 year old male with a history of prostate cancer with bone metastases undergoing chemotherapy who is seen in follow up for colonic pseudoobstruction. He feels good today. Reports abdominal bloating has nearly resolved. He has been passing gas today. He is tolerating a solid, bland diet. No nausea or vomiting. Feels his weakness is improving. He is participating with PT and OT and elisa
--- NOTE | 2021-06-19 13:45 | WPDGIPROGNO ---
Progress Note: A&P Assessment and Plan (1) Ileus: Code(s): K56.7 - Ileus, unspecified Status: Acute Assessment and Plan: resolved- probably related to recent chemotherapy and lytes abnormalities tolerated liquid diet, if he tolerates soft diet then he can go home call if questions (2) Projectile vomiting without nausea: Code(s): R11.12 - Projectile vomiting Status: Acute Assessment and Plan: resolved (3) Prostate cancer metastatic to bone: Onset Date: Unknown Code(s): C61 - Malignant neoplasm of prostate; C79.51 - Secondary malignant neoplasm of bone Status: Acute Assessment and Plan: oncology on board (4) Acute urinary retention: Code(s): R33.8 - Other retention of urine Status: Acute Assessment and Plan: resolved (5) Secondary malignant neoplasm of bone: Code(s): C79.51 - Secondary malignant neoplasm of bone Status: Acute (6) Prostate CA: Code(s): C61 - Malignant neoplasm of prostate Status: Acute Subjective Date/time seen: 06/19/21 13:45 Interval history: ngt removed yesterday and has been tolerating liquid diet, also had liquid stool, no more abdominal pain Review of Systems Review of Systems: All systems reviewed & are unremarkable except as noted in HPI and below Exam Const: General: cooperative, comfortable and no acute distress Orientation/consciousness: patient oriented x3 HENMT: General nose exam: Normal nares present Eyes: Other: Rt ptosis Neck: Neck: supple Resp: Auscultation: clear to auscultation bilaterally Cardio: Rate: regular rate Rhythm: regular rhythm GI: Inspection: normal to inspection and non-distended GI Palp: No abdominal tenderness, Yes Soft to palpation, No Tenderness to palpation present (GI), No Guarding due to palpation present (GI) and No Rigid due to palpation Auscultation: normal bowel sounds Skin: General skin exam: no rashes or lesions noted Neuro: Speech: normal speech Motor exam (neuro): Normal motor muscle tone present throughout Extrem: General: normal to inspection Psych: Mental Status: mental status grossly normal Objective Data Vital Signs Vital Signs: Vital Signs - 24 hr 06/18/21 14:00 06/18/21 22:00 06/19/21 05:33 Temperature 97.6 F 98.5 F 98.1 F Pulse Rate 88 97 92 Respiratory Rate 18 18 18 Blood Pressure 107/72 106/70 121/72 Pulse Oximetry 94 95 98 Intake/Output Intake/Output: Intake & Output 06/16/21 06/17/21 06/18/21 06/19/21 23:59 23:59 23:59 23:59 Intake Total 1000 1250 2040 1600 Output Total 1200 1200 530 90 Balance -119 88 2297 1510 Meds/Results Medications: Active Medications Generic Name Dose Route Start Last Admin Trade Name Freq PRN Reason Stop Dose Admin Acetaminophen 650 mg 06/19/21 12:43 Acetaminophen 325 Mg Tablet PO Q4H PRN Pain 1-5 Hydrocodone Bitart/Acetaminophen 1 tab 06/19/21 12:43 Hydrocodone/Acetaminophen (*Crx) 5-325 Mg Tablet PO Q6H PRN Pain 6-10 Heparin Sodium (Porcine) 5,000 units 06/17/21 06:00 06/19/21 05:23 Heparin Sodium 5,000 Units/Ml Vial SUB-Q 5,000 units Q8HR JESSICA Administration Ceftriaxone Sodium/Dextrose 1 gm in 50 mls @ 100 mls/hr 06/17/21 22:00 06/18/21 21:45 Rocephin 1 Gm/D5w 50 Ml IVPB Infused Q24H JESSICA Infusion Azithromycin 500 mg in 250 mls @ 250 mls/hr 06/17/21 22:00 06/18/21 22:20 Zithromax IVPB Infused Q24H JESSICA Infusion Melatonin 3 mg 06/18/21 21:00 06/18/21 21:16 Melatonin 3 Mg Tablet PO 3 mg HS JESSICA Administration Metoclopramide HCl 5 mg 06/17/21 12:00 06/19/21 12:47 Metoclopramide Hcl Inj 10 Mg/2 Ml Vial IV PUSH 5 mg Q6HR JESSICA Administration Ondansetron HCl 4 mg 06/17/21 01:15 Ondansetron Inj 4 Mg/2 Ml Vial IV PUSH Q4H PRN Nausea Pantoprazole Sodium 40 mg 06/17/21 21:00 06/19/21 09:52 Pantoprazole Sodium Iv 40 Mg Vial IV PUSH 40 mg Q12HR JESSICA A
[2021-06-19 14:00] VITALS: BP 114/81; PULSE 104; RESP 18; TEMP 37.4; O2SAT 96
[2021-06-19 22:00] VITALS: BP 117/86; PULSE 105; RESP 20; TEMP 37.2; O2SAT 97
[2021-06-19] MEDS: MELATONIN 3 MG TABLET PO (22:14)
[2021-06-20] MEDS: HEPARIN SODIUM 5,000 UNITS/ML VIAL 5000 UNITS SUB-Q ×3 (05:10→22:00)
[2021-06-20 06:00] VITALS: BP 114/65; PULSE 103; RESP 16; TEMP 36.8; O2SAT 95
[2021-06-20 07:38] LABS: Hematocrit 26.2 % (42.0-52.0); Hemoglobin 8.5 g/dL (14.0-18.0); Mean Corpuscular HGB Conc 32.4 g/dl (32-36); Mean Corpuscular Hemoglobin 27.2 pg (26-34); Mean Corpuscular Volume 83.7 fl (80-100); Mean Platelet Volume 8.6 fl (7.4-10.4); Platelet Count Result 234 k/mm3 (150-375); Red Blood Count 3.13 M/mm3 (4.6-6.20); Red Cell Distribution Width 20.8 % (11.5-14.5); White Blood Count 12.6 K/mm3 (4.5-10.0)
[2021-06-20 07:58] LABS: Alanine Aminotransferase 27 U/L (4-50); Albumin Level 2.4 g/dL (3.5-5.1); Alkaline Phosphatase 167 U/L (38-126); Anion Gap 8 mmol/L (8-16); Aspartate Amino Transferase 60 U/L (17-59); Bilirubin,Total 0.4 mg/dL (0.2-1.3); Blood Urea Nitrogen 4 mg/dL (9-20); Calcium 6.9 mg/dL (8.4-10.2); Carbon Dioxide 21 mmol/L (22-30); Chloride 98 mmol/L (98-107); Estimated CRCL calculation 125 ml/min; Estimated Glomerular Filt Rate > 60; Glucose 131 mg/dL (65-110); Potassium 2.9 mmol/L (3.4-5.0); Sodium 127 mmol/L (137-145)
[2021-06-20] MEDS: PANTOPRAZOLE SODIUM IV 40 MG VIAL IV PUSH ×2 (09:06→22:00)
--- NOTE | 2021-06-20 12:35 | PM.IMPN ---
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 Status: Acute Assessment and Plan: Resolved CT showed severe colonic distention without obstruction, felt to be consistent with pseudo-obstruction Appreciate gastroenterology and general surgery consultation No need for surgical intervention at this time Abdominal distension has improved NG tube removed 06/18/21 Tolerating regular diet S/p IVF PT/OT (2) Projectile vomiting without nausea: Code(s): R11.12 - Projectile vomiting Status: Acute Assessment and Plan: 2/2 pseudo-obstruction Resolved with NG decompression Appreciate GI and General surgery consults Gastric contents negative for occult blood. Analgesics and antiemetics available as needed (3) Acute urinary retention: Code(s): R33.8 - Other retention of urine Status: Acute Assessment and Plan: Bladder distention evident on CT and patient endorsed decreased urine output Failed voiding trial [place] catheter Consult to urology (4) Pneumonia: Qualifiers: Laterality: right Lung location: lower lobe of lung Pneumonia type: due to unspecified organism Qualified Code(s): J18.9 - Pneumonia, unspecified organism Code(s): J18.9 - Pneumonia, unspecified organism Status: Acute Assessment and Plan: CXR shows patchy bilateral airspace disease compatible with pneumonia Continue treatment with ceftriaxone and azithromycin for coverage of community-acquired pneumonia Aspiration pneumonia considered given emesis but felt to be unlikely with bilateral findings. ST eval performed with no dysphagia. Continue regular diet COVID and influenza negative Urinary legionella and pneumococcal antigens pending Blood cultures pending, negative to date Supportive care. Patient denies respiratory symptoms. Maintaining adequate O2 sats. Leukocytosis improving (5) Electrolyte abnormality: Code(s): E87.8 - Other disorders of electrolyte and fluid balance, not elsewhere classified Status: Acute Assessment and Plan: Hyponatremia: Likely secondary to dehydration. Improved with IV fluids. Sodium 130 this morning Hypokalemia: Likely secondary to vomiting and poor PO intake. 3.0-->2.8 today. 40 mEq PO KCl IVP, continue to monitor Hypocalcemia: Calcium levels improved when corrected for albumin. Continue to monitor CMP Monitor electrolytes closely (6) Anemia: Code(s): D64.9 - Anemia, unspecified Status: Acute Assessment and Plan: Suspect 2/2 cancer and chemotherapy H&H reviewed and relatively consistent with baseline Appreciate oncology consultation No evidence of blood loss Continue to monitor H&H (7) Prostate cancer metastatic to bone: Onset Date: Unknown Code(s): C61 - Malignant neoplasm of prostate; C79.51 - Secondary malignant neoplasm of bone Status: Acute Assessment and Plan: Patient is undergoing chemotherapy. Scheduled for chemotherapy on 06/19/2021 which will be rescheduled in 1 week Also scheduled to start radiation; will proceed following discharge Appreciate oncology consultation Subjective Date/time seen: 06/20/21 12:35 Interval history: Pt seen and evaluated; labs, vs, diagnostic results; consult notes reviewed; pt continues with urinary retention Review of Systems Review of Systems: All systems reviewed & are unremarkable except as noted in HPI and below Exam Narrative: GEN: NAD Neuro: awake, alert and oriented x4, speech clear, no focal neuro deficits noted HEENMT: normocephalic, atraumatic, right eye remains closed, left extraocular movements intact, sclera anicteric Neck: supple, no JVD Respiratory: clear to auscultation bilaterally, nonlabored breathing Cardio: regular rate, regular rhythm with S1-S2 Abdomen: nondistended, normoactive bowel sounds, soft, nontender to palpation Extremities: no edema, clubbing or c
[2021-06-20] MEDS: POTASSIUM CHLORIDE INJ 40 MEQ in SODIUM CHLORIDE 0.9% IV 500 ML 130 MEQ IVPB (13:02)
[2021-06-20] MEDS: METOCLOPRAMIDE HCL INJ 10 MG/2 ML VIAL 5 MG IV PUSH ×3 (13:04→23:15)
[2021-06-20 14:00] VITALS: BP 105/65; PULSE 95; RESP 20; TEMP 36.8; O2SAT 94
--- NOTE | 2021-06-20 16:01 | WPDURCON ---
Assessment and Plan Assessment and plan (1) Prostate cancer metastatic to bone: Onset Date: Unknown Code(s): C61 - Malignant neoplasm of prostate; C79.51 - Secondary malignant neoplasm of bone Status: Acute Assessment and Plan: Continue treatment with oncology s/p discharge as planned. PSA 78.3 05/11/2021. (2) MINA (acute kidney injury): Code(s): N17.9 - Acute kidney failure, unspecified Status: Acute Assessment and Plan: Creatinine is low but not concerning at this time, will get a HOLLIE tomorrow to ensure hydro has resolve s/p catheter placement. (3) Acute urinary retention: Code(s): R33.8 - Other retention of urine Status: Acute Assessment and Plan: Keep roa in place for 7-10 days then follow up with me for further evaluation and voiding trial. I will then refer him to Dr. Ayala or Zac for a prostate cancer consultation as he states he has never seen a urologist or had a prostate biopsy. Start Flomax and finasteride. Urology Consult Note HPI Date Seen: 06/20/21 Requesting Physician: Amanda Zelaya PA-C Primary Care Provider: Moises Mix MD Consult Narrative Narrative: Brent Garcia is a 65 year old male who presented to the ER on 06/17/2021 for nausea, vomiting, decreased urine output and bowel movements, weakness and abdominal distension. He is currently being treated for pneumonia. He has a WBC of 12.6, creatinine of 0.50 and urinalysis is normal. He has known prostate cancer that was diagnosed from elevated PSA's at Dr. Wayne's office. He states he has never seen a urologist or had a prostate biopsy. He denies difficulty with urination until 10 days ago when he started to have straining, hesitancy and slowed urine stream. His cancer is being treated by oncology d/t bone metastasis as well as evidence of possible adrenal masses on recent CT from 06/17/[address] also reveals mild bilateral hydronephrosis and a distended bladder, diffuse sclerotic metastasis, and severe colonic distension. His most recent PSA was 78.3 on 05/11/2021. He see's Dr. Mix for oncology and was scheduled to have chemo on 06/19/2021 which has since been rescheduled. He will also be starting radiation soon of his prostate. He had a roa initially placed which was removed two days ago, he continued to have elevated bladder scan residuals of >900cc. Therefore a new catheter was placed today and 2,175cc was removed from his bladder. Review of Systems Cardiovascular: Cardiovascular: Denies chest pain Respiratory: Respiratory: Reports no additional respiratory complaints Gastrointestinal: Gastrointestinal: Denies abdominal pain, Denies nausea and Denies vomiting Genitourinary: Genitourinary: Denies hematuria, Denies flank pain and Reports urinary hesitancy [facility] Past Medical History Medical History Anemia Ileus Prostate cancer metastatic to bone (Unknown) Family History Family History Sibling Malignant neoplasm of prostate, Onset Age: 57 Father Malignant neoplasm of prostate Acute myocardial infarction Mother Cerebrovascular accident Social History Social History Smoking status: Never smoker Alcohol intake: former Alcohol use details: SOCIALLY IN PAST Substance use: never Substance use type: does not use Additional living arrangements comments: [facility] Gender identity (if verbalized by the patient): Male Spiritual care concerns: No Meds Home Medications and Allergies Home Medications Medication Instructions Recorded Confirmed Type omega-3 fatty acids 1,000 mg 1,000 mg PO DAILY #30 cap 07/13/19 06/17/21 Rx capsule multivitamin 1 tablet PO DAILY 04/17/20 06/17/21 History calcium See Rx Instructions .ROUTE .COMPLEX 05/30/20 06/17/21 History
[2021-06-20 20:00] VITALS: PULSE 57; RESP 16; O2SAT 96
[2021-06-20 21:28] VITALS: BP 131/78; PULSE 57; RESP 16; TEMP 36.8; O2SAT 96
[2021-06-20] MEDS: MELATONIN 3 MG TABLET PO (22:00)
[2021-06-21] MEDS: METOCLOPRAMIDE HCL INJ 10 MG/2 ML VIAL 5 MG IV PUSH ×4 (05:39→23:30)
[2021-06-21] MEDS: HEPARIN SODIUM 5,000 UNITS/ML VIAL 5000 UNITS SUB-Q ×3 (05:40→21:22)
[2021-06-21 06:00] VITALS: BP 119/84; PULSE 100; RESP 16; TEMP 37; O2SAT 97
[2021-06-21 08:00] VITALS: PULSE 100; RESP 16; O2SAT 97
[2021-06-21] MEDS: FINASTERIDE 5 MG TABLET PO (08:01)
[2021-06-21] MEDS: PANTOPRAZOLE SODIUM IV 40 MG VIAL IV PUSH ×2 (08:01→20:14)
[2021-06-21] MEDS: TAMSULOSIN HCL 0.4 MG CAPSULE PO (08:02)
[2021-06-21 09:40] LABS: Hematocrit 31.7 % (42.0-52.0); Mean Corpuscular HGB Conc 31.5 g/dl (32-36); Mean Corpuscular Hemoglobin 27.2 pg (26-34); Mean Corpuscular Volume 86.1 fl (80-100); Mean Platelet Volume 8.5 fl (7.4-10.4); Platelet Count Result 223 k/mm3 (150-375); Red Blood Count 3.68 M/mm3 (4.6-6.20); Red Cell Distribution Width 21.1 % (11.5-14.5); White Blood Count 14.2 K/mm3 (4.5-10.0)
[2021-06-21 09:50] LABS: Alanine Aminotransferase 35 U/L (4-50); Alkaline Phosphatase 225 U/L (38-126); Anion Gap 11 mmol/L (8-16); Aspartate Amino Transferase 82 U/L (17-59); Bilirubin,Total 0.4 mg/dL (0.2-1.3); Blood Urea Nitrogen 2 mg/dL (9-20); Calcium 7.2 mg/dL (8.4-10.2); Carbon Dioxide 21 mmol/L (22-30); Chloride 96 mmol/L (98-107); Estimated CRCL calculation 125 ml/min; Estimated Glomerular Filt Rate > 60; Glucose 135 mg/dL (65-110); Sodium 128 mmol/L (137-145)
[2021-06-21 09:51] LABS: Lactate Dehydrogenase 1118 U/L (313-618)
--- NOTE | 2021-06-21 10:26 | PC.NURSE ---
called Ambar report NA 128 increase from 127 and K 3.0 increase from 2.9 labs. Awaiting call back.
[2021-06-21 10:36] LABS: CRP 13.9 mg/dL (<1.0)
[2021-06-21 10:50] LABS: Band Neutrophils Percent 4 % (0-6); Eosinophils Absolute Manual 0.28 K/mm3 (0.02-0.5); Eosinophils Percent Manual 2 % (0-4); Lymphocytes Absolute Manual 2.69 K/mm3 (1.1-4.5); Metamyelocytes Percent 3 %; Monocytes Absolute Manual 0.42 K/mm3 (0.1-0.90); Monocytes Percent Manual 3 % (3-9); Neutrophils Absolute Manual 10.36 K/mm3 (1.3-6.7); Neutrophils Percent Manual 69 % (46-73); Total Cells Counted 100
[2021-06-21 10:51] LABS: Anisocytosis 1+ (NORMAL); Platelet Estimate Adequate (Adequate)
[2021-06-21] MEDS: POTASSIUM CHLORIDE 20 MEQ TABLET 40 MEQ PO ×2 (11:44→17:05)
[2021-06-21 12:23] LABS: Ferritin > 2000.00 ng/mL (11.1-264)
--- NOTE | 2021-06-21 13:23 | PC.NURSE ---
Per Ambar Narvaez INSURANCE EXECUTIVE, 40 meq K bid today r.t K 3.0.
[2021-06-21 14:00] VITALS: BP 108/67; PULSE 107; RESP 16; TEMP 37.2; O2SAT 95
[2021-06-21] MEDS: SODIUM CHLORIDE 0.9% IV 500 ML 250 ML IV CONT (17:05)
[2021-06-21] MEDS: PSYLLIUM POWDER PACKET 1 PACKET PO (17:38)
--- NOTE | 2021-06-21 18:09 | PM.IMPN ---
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 (2) Projectile vomiting without nausea: Code(s): R11.12 - Projectile vomiting Status: Acute Assessment and Plan: 2/2 pseudo-obstruction Resolved with NG decompression Appreciate GI and General surgery consults Gastric contents negative for occult blood. Analgesics and antiemetics available as needed RESOLVED. but elevated liver enzymes may be related. AST 50, 60, to 82 today. ALT stable. Alk Phos now up to 225. IVF bolus today. repeat labs in morning. (3) Acute urinary retention: Code(s): R33.8 - Other retention of urine Status: Acute Assessment and Plan: Bladder distention evident on CT and patient endorsed decreased urine output Failed voiding trial Place Roa catheter Consult to urology Keep roa in place for 7-10 days then follow up with Urology for further evaluation and voiding trial. Urology will then refer him to Dr. Ayala or Zac for a prostate cancer consultation as he states he has never seen a urologist or had a prostate biopsy. Started Flomax and finasteride today. (4) Pneumonia: Qualifiers: Laterality: right Lung location: lower lobe of lung Pneumonia type: due to unspecified organism Qualified Code(s): J18.9 - Pneumonia, unspecified organism Code(s): J18.9 - Pneumonia, unspecified organism Status: Acute Assessment and Plan: 06/17/2021 CXR shows patchy bilateral airspace disease compatible with pneumonia 06/17/2021 started treatment with IV ceftriaxone and azithromycin for coverage of community-acquired pneumonia now on day 4 of IV antibiotics, on room air, F/U CXR ordered. Aspiration pneumonia considered given emesis but felt to be unlikely with bilateral findings. ST eval performed with no dysphagia. Continue regular diet COVID and influenza negative Urinary legionella and pneumococcal antigens PENDING 06/17/2021 Blood cultures negative , 06/16/2021 UA clear. Supportive care. Patient denies respiratory symptoms. Maintaining adequate O2 sats. Leukocytosis improved to 12.6 yesterday, and now 14.2 today Ferritin elevated at >2000. LDH abdnormal 1118 today, CRP abnormal 13.9 today. Encouraged better oral hydration. (5) Electrolyte abnormality: Code(s): E87.8 - Other disorders of electrolyte and fluid balance, not elsewhere classified Status: Acute Assessment and Plan: Hyponatremia: Likely secondary to dehydration. Improved with IV fluids to 130 then dropped to 128 today. Ordered small 500 ml normal saline bolus today. Hypokalemia: Likely secondary to vomiting and poor PO intake. 2.9 to 3.0 today. 40 mEq PO KCl twice today, continue to monitor Hypocalcemia: Calcium levels improved , but 7.2 today low. Monitor electrolytes closely (6) Anemia: Code(s): D64.9 - Anemia, unspecified Status: Acute Assessment and Plan: Suspect 2/2 cancer and chemotherapy, 06/18/2021 iron level low and iron binding capacity low H&H reviewed and relatively consistent with baseline F/U with his Hemo/oncology after discharge No evidence of blood loss Continue to monitor H&H, H/H = 04/08.7 today (7) Prostate cancer metastatic to bone: Onset Date: Unknown Code(s): C61 - Malignant neoplasm of prostate; C79.51 - Secondary malignant neoplasm of bone Status: Acute Assessment and Plan:
[2021-06-21] MEDS: MELATONIN 3 MG TABLET PO (20:17)
[2021-06-21 21:54] VITALS: BP 108/76; PULSE 106; RESP 18; TEMP 37.2; O2SAT 97
[2021-06-21 23:22] LABS: Pneumococcal Antigen Urine Not Detected (Not Detected)
[2021-06-22 04:28] LABS: IFOB Positive Control Positive; Immunochemical Fecal Occult Bl Negative (N)
[2021-06-22] MEDS: HEPARIN SODIUM 5,000 UNITS/ML VIAL 5000 UNITS SUB-Q ×3 (05:30→20:32)
[2021-06-22] MEDS: METOCLOPRAMIDE HCL INJ 10 MG/2 ML VIAL 5 MG IV PUSH ×3 (05:30→17:01)
[2021-06-22 05:40] VITALS: BP 113/74; PULSE 106; RESP 18; TEMP 37.1; O2SAT 96
[2021-06-22 08:00] VITALS: O2SAT 99
[2021-06-22 08:15] LABS: Hematocrit 27.3 % (42.0-52.0); Hemoglobin 8.6 g/dL (14.0-18.0); Mean Corpuscular HGB Conc 31.5 g/dl (32-36); Mean Corpuscular Hemoglobin 27.3 pg (26-34); Mean Corpuscular Volume 86.7 fl (80-100); Mean Platelet Volume 9.2 fl (7.4-10.4); Platelet Count Result 185 k/mm3 (150-375); Red Blood Count 3.15 M/mm3 (4.6-6.20); Red Cell Distribution Width 20.9 % (11.5-14.5); White Blood Count 11.8 K/mm3 (4.5-10.0)
--- NOTE | 2021-06-22 08:35 | ECG_ITS ---
Measurements Intervals [place] Rate: 115 P: 33 IA: 137 QRS: 62 QRSD: 77 T: 56 QT: 306 QTc: 425 Interpretive Statements SINUS TACHYCARDIA ATRIAL AND VENTRICULAR PREMATURE COMPLEXES BORDERLINE ST ABNORMALITY- ANTEROLATERAL LEADS ABNORMAL ECG Electronically Signed On 06-22-2021 10:59:46 HEALTH CARE ANALYST by Garland Ridley D.O.
[2021-06-22 08:50] LABS: Alanine Aminotransferase 28 U/L (4-50); Albumin Level 2.6 g/dL (3.5-5.1); Alkaline Phosphatase 208 U/L (38-126); Anion Gap 5 mmol/L (8-16); Aspartate Amino Transferase 67 U/L (17-59); Bilirubin,Total 0.4 mg/dL (0.2-1.3); Blood Urea Nitrogen 2 mg/dL (9-20); CRP 16.2 mg/dL (<1.0); Calcium 6.8 mg/dL (8.4-10.2); Carbon Dioxide 24 mmol/L (22-30); Chloride 97 mmol/L (98-107); Estimated CRCL calculation 125 ml/min; Estimated Glomerular Filt Rate > 60; Glucose 113 mg/dL (65-110); Lactate Dehydrogenase 1097 U/L (313-618); Potassium 3.5 mmol/L (3.4-5.0); Sodium 126 mmol/L (137-145)
[2021-06-22 08:58] LABS: Magnesium 1.9 mg/dL (1.6-2.3); Phosphorus 1.5 mg/dL (2.5-4.5)
[2021-06-22 09:07] LABS: NT Pro B Type Natriuretic Pept 647 pg/mL (5-100)
[2021-06-22] MEDS: TAMSULOSIN HCL 0.4 MG CAPSULE PO (09:10)
[2021-06-22] MEDS: FINASTERIDE 5 MG TABLET PO (09:11)
[2021-06-22] MEDS: PSYLLIUM POWDER PACKET 1 PACKET PO (09:11)
--- NOTE | 2021-06-22 09:57 | PM.IMPN ---
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 CT showed severe colonic distention without obstruction, felt to be consistent with pseudo-obstruction Appreciate gastroenterology and general surgery consultation No need for surgical intervention at this time Abdominal distension has improved NG tube removed 06/18/21 Tolerating regular diet S/p IVFs at admission, LFTs elevated today, low PO water intake today per patient report, tolerated 500ml IVF bolus yesteray. PT/OT, bowel training, daily fiber ordered. (2) Projectile vomiting without nausea: Code(s): R11.12 - Projectile vomiting Status: Acute Assessment and Plan: RESOLVED. 2/2 pseudo-obstruction Resolved with NG decompression Appreciate GI and General surgery consults Gastric contents negative for occult blood. Analgesics and antiemetics available as needed RESOLVED. but elevated liver enzymes may be related. AST 50, 60, to 67 today. ALT stable. Alk Phos now up to 225, down to 208 today. IVF bolus yesterday improved LFTs today. Continue to encourage oral fluid hydration. (3) Acute urinary retention: Code(s): R33.8 - Other retention of urine Status: Acute Assessment and Plan: PERSISTS, D/C with Roa Bladder distention evident on CT and patient endorsed decreased urine output Failed voiding trial Place Roa catheter Consult to urology Keep roa in place for 7-10 days then follow up with Urology for further evaluation and voiding trial. Urology will then refer him to Dr. Ayala or Zac for a prostate cancer consultation as he states he has never seen a urologist or had a prostate biopsy. Started Flomax and finasteride today. (4) Pneumonia: Qualifiers: Laterality: right Lung location: lower lobe of lung Pneumonia type: due to unspecified organism Qualified Code(s): J18.9 - Pneumonia, unspecified organism Code(s): J18.9 - Pneumonia, unspecified organism Status: Acute Assessment and Plan: 06/17/2021 CXR shows patchy bilateral airspace disease compatible with pneumonia 06/17/2021 started treatment with IV ceftriaxone and azithromycin for coverage of community-acquired pneumonia now on day 4 of IV antibiotics, on room air, F/U CXR ordered. Aspiration pneumonia considered given emesis but felt to be unlikely with bilateral findings. ST eval performed with no dysphagia. Continue regular diet COVID and influenza negative Urinary legionella and pneumococcal antigens PENDING 06/17/2021 Blood cultures negative , 06/16/2021 UA clear. Supportive care. Patient denies respiratory symptoms. Maintaining adequate O2 sats. Leukocytosis improved to 12.6 the yesterday up to 14.2, gave IVFs and then today WBC 11.8 Ferritin elevated at >2000. LDH abdnormal 1118 yest, then 1097 today, CRP abnormal 13.9 yest and then 16.2 today. Encouraged better oral hydration. Last night was his 5th Dose of IV Azithro and Rocephin. Breathing well. Hope to Discharge home tomorrow. IMPROVING. (5) Electrolyte abnormality: Code(s): E87.8 - Other disorders of electrolyte and fluid balance, not elsewhere classified Status: Acute Assessment and Plan: Hyponatremia: Likely secondary to dehydration. Improved with IV fluids to 130 then dropped to 128 and further to 126 today. Hypokalemia: Likely secondary to vomiting and poor PO intake. 2.9 to 3.0 today. 40 mEq PO KCl twice, improved to 3.5 Hypocalcemia: Calcium levels low at 6.8 Ordered IV mag and IV sodium phos today. repeat electrolyte levels (6) Anemia: Code(s): D64.9 - Anemia, unspecified Status: Acute Assessment and Plan: Suspect 2/2 cancer and chemotherapy, 06/18/2021 iron level low and iron binding capacity low H&H reviewed and relatively consistent with baseline F/U with his Hemo/oncology after discharge No evidence of blood l
[2021-06-22] MEDS: MAGNESIUM SULF 2 GM/WATER 50ML 2 GM/50 ML BAG IVPB (11:03)
[2021-06-22] MEDS: PANTOPRAZOLE SODIUM IV 40 MG VIAL IV PUSH ×2 (11:04→20:32)
[2021-06-22 14:00] VITALS: BP 103/66; PULSE 119; RESP 14; TEMP 37; O2SAT 99
[2021-06-22 16:32] LABS: Ferritin > 2000.00 ng/mL (11.1-264)
[2021-06-22] MEDS: POLYSACCHARIDE IRON COMPLEX 150 MG CAPSULE PO (17:00)
--- NOTE | 2021-06-22 19:32 | ECG_ITS ---
Measurements Intervals [place] Rate: 111 P: 9 [place]: 132 QRS: 49 QRSD: 77 T: 41 QT: 325 QTc: 443 Interpretive Statements SINUS TACHYCARDIA ATRIAL AND VENTRICULAR PREMATURE COMPLEXES BORDERLINE ST ABNORMALITY- ANTEROLATERAL LEADS ABNORMAL ECG Electronically Signed On 06-22-2021 20:26:32 POWER PLANT TECHNICIAN by Garland Ridley D.O.
[2021-06-22 20:00] VITALS: PULSE 100; RESP 14; O2SAT 99
[2021-06-22 20:10] VITALS: O2SAT 99
[2021-06-22] MEDS: MELATONIN 3 MG TABLET PO (20:32)
[2021-06-22 22:00] VITALS: BP 106/73; PULSE 100; RESP 18; TEMP 37.7; O2SAT 96
[2021-06-23] MEDS: METOCLOPRAMIDE HCL INJ 10 MG/2 ML VIAL 5 MG IV PUSH ×5 (00:46→23:04)
[2021-06-23 03:53] LABS: Legionella pneumophila Ag Ur Not Detected (Not Detected)
[2021-06-23] MEDS: HEPARIN SODIUM 5,000 UNITS/ML VIAL 5000 UNITS SUB-Q ×3 (05:45→20:30)
[2021-06-23 07:19] LABS: Hematocrit 26.1 % (42.0-52.0); Hemoglobin 8.2 g/dL (14.0-18.0); Mean Corpuscular HGB Conc 31.4 g/dl (32-36); Mean Corpuscular Hemoglobin 26.3 pg (26-34); Mean Corpuscular Volume 83.7 fl (80-100); Mean Platelet Volume 8.8 fl (7.4-10.4); Platelet Count Result 177 k/mm3 (150-375); Red Blood Count 3.12 M/mm3 (4.6-6.20); Red Cell Distribution Width 20.8 % (11.5-14.5); White Blood Count 11.2 K/mm3 (4.5-10.0)
[2021-06-23 07:50] LABS: Alanine Aminotransferase 27 U/L (4-50); Albumin Level 2.6 g/dL (3.5-5.1); Alkaline Phosphatase 230 U/L (38-126); Anion Gap 8 mmol/L (8-16); Aspartate Amino Transferase 70 U/L (17-59); Bilirubin,Total 0.3 mg/dL (0.2-1.3); Blood Urea Nitrogen 2 mg/dL (9-20); CRP 18.4 mg/dL (<1.0); Calcium 6.7 mg/dL (8.4-10.2); Carbon Dioxide 22 mmol/L (22-30); Chloride 96 mmol/L (98-107); Estimated CRCL calculation 125 ml/min; Estimated Glomerular Filt Rate > 60; Glucose 127 mg/dL (65-110); Lactate Dehydrogenase 1216 U/L (313-618); Potassium 3.1 mmol/L (3.4-5.0); Sodium 126 mmol/L (137-145)
[2021-06-23 08:00] VITALS: PULSE 100; RESP 18; O2SAT 96
--- NOTE | 2021-06-23 08:11 | PC.NURSE ---
Morning labs reported to Md Peña this am, N.o received bmp/mag labs 06/24/21, magnesium oxide po 400mg tid x 2days, KCl 40 meq IV and PO x1 dose each r/t 3.1 K level, D5 0.9%NS 75 ml/hr x24hrs r/t poor appetite and low Na levels 126.
[2021-06-23] MEDS: POTASSIUM CHLORIDE INJ 40 MEQ in SODIUM CHLORIDE 0.9% IV 500 ML 130 MEQ IVPB (08:53)
[2021-06-23] MEDS: POTASSIUM CHLORIDE 20 MEQ TABLET 40 MEQ PO (08:54)
[2021-06-23] MEDS: DEXTROSE 5%/0.9% SOD CHL 1,000 ML 75 ML IV CONT ×2 (08:54→23:48)
[2021-06-23] MEDS: MAGNESIUM OXIDE 400 MG TABLET PO ×3 (08:54→16:32)
[2021-06-23] MEDS: PANTOPRAZOLE SODIUM IV 40 MG VIAL IV PUSH ×2 (08:55→20:30)
[2021-06-23] MEDS: FINASTERIDE 5 MG TABLET PO (08:55)
[2021-06-23] MEDS: POLYSACCHARIDE IRON COMPLEX 150 MG CAPSULE PO (08:55)
[2021-06-23] MEDS: TAMSULOSIN HCL 0.4 MG CAPSULE PO (08:56)
[2021-06-23 11:13] LABS: Ferritin > 2000.00 ng/mL (11.1-264)
--- NOTE | 2021-06-23 11:29 | P.PNIM_ITS ---
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 CT showed severe colonic distention without obstruction, felt to be consistent with pseudo-obstruction Appreciate gastroenterology and general surgery consultation No need for surgical intervention at this time Abdominal distension has improved NG tube removed 06/18/21 Tolerating regular diet S/p IVFs at admission, LFTs elevated today, low PO water intake today per patient report, tolerated 500ml IVF bolus yesteray. PT/OT, bowel training, daily fiber ordered. (2) Projectile vomiting without nausea: Code(s): R11.12 - Projectile vomiting Status: Acute Assessment and Plan: RESOLVED. 2/2 pseudo-obstruction Resolved with NG decompression Appreciate GI and General surgery consults Gastric contents negative for occult blood. Analgesics and antiemetics available as needed RESOLVED. but elevated liver enzymes may be related. AST 50, 60, to 67 today. ALT stable. Alk Phos now up to 225, down to 208 today. IVF bolus yesterday improved LFTs today. Continue to encourage oral fluid hydration. (3) Acute urinary retention: Code(s): R33.8 - Other retention of urine Status: Acute Assessment and Plan: PERSISTS, D/C with Roa Bladder distention evident on CT and patient endorsed decreased urine output Failed voiding trial Place Roa catheter Consult to urology Keep roa in place for 7-10 days then follow up with Urology for further evaluation and voiding trial. Urology will then refer him to Dr. Ayala or Zac for a prostate cancer consultation as he states he has never seen a urologist or had a prostate biopsy. Started Flomax and finasteride today. (4) Pneumonia: Qualifiers: Laterality: right Lung location: lower lobe of lung Pneumonia type: due to unspecified organism Qualified Code(s): J18.9 - Pneumonia, unspecified organism Code(s): J18.9 - Pneumonia, unspecified organism Status: Acute Assessment and Plan: 06/17/2021 CXR shows patchy bilateral airspace disease compatible with pneumonia 06/17/2021 started treatment with IV ceftriaxone and azithromycin for coverage of community-acquired pneumonia now on day 4 of IV antibiotics, on room air, F/U CXR ordered. Aspiration pneumonia considered given emesis but felt to be unlikely with bilateral findings. ST eval performed with no dysphagia. Continue regular diet COVID and influenza negative Urinary legionella and pneumococcal antigens PENDING 06/17/2021 Blood cultures negative , 06/16/2021 UA clear. Supportive care. Patient denies respiratory symptoms. Maintaining adequate O2 sats. Leukocytosis improved to 12.6 the yesterday up to 14.2, gave IVFs and then today WBC 11.8 Ferritin elevated at >2000. LDH abdnormal 1118 yest, then 1097 today, CRP abnormal 13.9 yest and then 16.2 today. Encouraged better oral hydration. Last night was his 5th Dose of IV Azithro and Rocephin. Breathing well. Hope to Discharge home tomorrow. IMPROVING. (5) Electrolyte abnormality: Code(s): E87.8 - Other disorders of electrolyte and fluid balance, not elsewhere classified Status: Acute Assessment and Plan: Hyponatremia: Likely secondary to dehydration. Improved with IV fluids to 130 then dropped to 128 and further to 126 today. Hypokalemia: Likely secondary to vomiting and poor PO intake. 2.9 to 3.0 today. 40 mEq PO KCl twice, improved to 3.5 Hypocalcemia: Calcium levels low at 6.8 Ordered IV mag and IV sodium phos today.
[2021-06-23] MEDS: ACIDOPHILUS/BULGARICUS CHEWABLE TABLET 1 TABLET PO ×3 (12:02→20:30)
[2021-06-23 14:00] VITALS: BP 119/75; PULSE 68; RESP 20; TEMP 37.6; O2SAT 100
[2021-06-23 20:00] VITALS: PULSE 68; RESP 20; O2SAT 100
[2021-06-23] MEDS: MELATONIN 3 MG TABLET PO (20:30)
[2021-06-23 22:00] VITALS: BP 116/68; PULSE 111; RESP 18; TEMP 38.3; O2SAT 98
[2021-06-23 23:49] VITALS: TEMP 38.1
[2021-06-23] MEDS: ACETAMINOPHEN 325 MG TABLET 650 MG PO (23:49)
[2021-06-24 04:00] VITALS: BP 121/72; PULSE 100; RESP 16; TEMP 37.1; O2SAT 91
[2021-06-24] MEDS: HEPARIN SODIUM 5,000 UNITS/ML VIAL 5000 UNITS SUB-Q ×3 (06:22→20:25)
[2021-06-24] MEDS: METOCLOPRAMIDE HCL INJ 10 MG/2 ML VIAL 5 MG IV PUSH ×2 (06:22→12:07)
[2021-06-24 06:45] LABS: Hematocrit 24.7 % (42.0-52.0); Hemoglobin 7.9 g/dL (14.0-18.0); Mean Corpuscular Hemoglobin 26.8 pg (26-34); Mean Corpuscular Volume 83.7 fl (80-100); Mean Platelet Volume 9.2 fl (7.4-10.4); Platelet Count Result 178 k/mm3 (150-375); Red Blood Count 2.95 M/mm3 (4.6-6.20); Red Cell Distribution Width 20.6 % (11.5-14.5); White Blood Count 9.4 K/mm3 (4.5-10.0)
[2021-06-24 07:18] LABS: Alanine Aminotransferase 22 U/L (4-50); Albumin Level 2.4 g/dL (3.5-5.1); Alkaline Phosphatase 229 U/L (38-126); Anion Gap 5 mmol/L (8-16); Aspartate Amino Transferase 56 U/L (17-59); Bilirubin,Total 0.3 mg/dL (0.2-1.3); Blood Urea Nitrogen 3 mg/dL (9-20); CRP 19.8 mg/dL (<1.0); Calcium 6.7 mg/dL (8.4-10.2); Carbon Dioxide 22 mmol/L (22-30); Chloride 102 mmol/L (98-107); Estimated CRCL calculation 125 ml/min; Estimated Glomerular Filt Rate > 60; Glucose 135 mg/dL (65-110); Lactate Dehydrogenase 974 U/L (313-618); Magnesium 2.1 mg/dL (1.6-2.3); Potassium 3.5 mmol/L (3.4-5.0); Sodium 129 mmol/L (137-145)
[2021-06-24 08:00] VITALS: PULSE 100; RESP 16; O2SAT 91
[2021-06-24] MEDS: PANTOPRAZOLE SODIUM IV 40 MG VIAL IV PUSH ×2 (08:06→20:25)
[2021-06-24] MEDS: FINASTERIDE 5 MG TABLET PO (08:07)
[2021-06-24] MEDS: MAGNESIUM OXIDE 400 MG TABLET PO ×3 (08:07→16:11)
[2021-06-24] MEDS: TAMSULOSIN HCL 0.4 MG CAPSULE PO (08:07)
[2021-06-24] MEDS: POLYSACCHARIDE IRON COMPLEX 150 MG CAPSULE PO (08:07)
[2021-06-24] MEDS: ACIDOPHILUS/BULGARICUS CHEWABLE TABLET 1 TABLET PO ×4 (08:07→20:27)
[2021-06-24 09:19] LABS: Ferritin > 2000.00 ng/mL (11.1-264)
--- NOTE | 2021-06-24 12:59 | PM.IMPN ---
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 2/2 pseudo-obstruction Resolved with NG decompression Appreciate GI and General surgery consults Gastric contents negative for occult blood. Analgesics and antiemetics available as needed (3) Acute urinary retention: Code(s): R33.8 - Other retention of urine Status: Acute Assessment and Plan: PERSISTS, D/C with Roa Bladder distention evident on CT and patient endorsed decreased urine output Failed voiding trial Place Roa catheter Consult to urology Keep roa in place for 7-10 days then follow up with Urology for further evaluation and voiding trial. Urology will then refer him to Dr. Ayala or Zac for a prostate cancer consultation as he states he has never seen a urologist or had a prostate biopsy. Started Flomax and finasteride today. (4) Pneumonia: Qualifiers: Laterality: right Lung location: lower lobe of lung Pneumonia type: due to unspecified organism Qualified Code(s): J18.9 - Pneumonia, unspecified organism Code(s): J18.9 - Pneumonia, unspecified organism Status: Acute Assessment and Plan: 06/17/2021 CXR shows patchy bilateral airspace disease compatible with pneumonia 06/17/2021 started treatment with IV ceftriaxone and azithromycin for coverage of community-acquired pneumonia now on day 4 of IV antibiotics, on room air, F/U CXR ordered. Aspiration pneumonia considered given emesis but felt to be unlikely with bilateral findings. ST eval performed with no dysphagia. Continue regular diet COVID and influenza negative Urinary legionella and pneumococcal antigens PENDING 06/17/2021 Blood cultures negative , 06/16/2021 UA clear. Supportive care. Patient denies respiratory symptoms. Maintaining adequate O2 sats. Leukocytosis improved to 12.6 the yesterday up to 14.2, gave IVFs and then today WBC 11.8 Ferritin elevated at >2000. LDH abdnormal 1118 yest, then 1097 today, CRP abnormal 13.9 yest and then 16.2 today. Continue iv rocephin and zithromax (5) Electrolyte abnormality: Code(s): E87.8 - Other disorders of electrolyte and fluid balance, not elsewhere classified Status: Acute Assessment and Plan: Hyponatremia: Likely secondary to dehydration. Improved with IV fluids to 130 then dropped to 128 and further to 126 today. Hypokalemia: Likely secondary to vomiting and poor PO intake. 2.9 to 3.0 today. 40 mEq PO KCl twice, improved to 3.5 Hypocalcemia: Calcium levels low at 6.8 Continue to monitor electrolytes (6) Anemia: Code(s): D64.9 - Anemia, unspecified Status: Acute Assessment and Plan: Suspect 2/2 cancer and chemotherapy, 06/18/2021 iron level low and iron binding capacity low H&H reviewed and relatively consistent with baseline F/U with his Hemo/oncology after discharge (7) Prostate cancer metastatic to bone: Onset Date: Unknown Code(s): C61 - Malignant neoplasm of prostate; C79.51 - Secondary malignant neoplasm of bone Status: Acute Assessment and Plan: Patient is undergoing chemotherapy. had 4 treatments. Scheduled for chemotherapy on 06/19/2021 which will be rescheduled in 1 week Also scheduled to start radiation; will proceed following discharge Continue treatment with oncology s/p discharge as planned. PSA 78.3 05/11/2021. (8) MINA (acute kidney injury): Code(s): N17.9 - Acute kidney lia
[2021-06-24] MEDS: LOPERAMIDE HCL 2 MG CAPSULE 4 MG PO ×2 (13:54→16:11)
[2021-06-24 14:00] VITALS: BP 111/70; PULSE 112; RESP 20; TEMP 37.6; O2SAT 98
[2021-06-24 20:00] VITALS: RESP 20; O2SAT 98
[2021-06-24] MEDS: MELATONIN 3 MG TABLET PO (20:26)
[2021-06-24 22:00] VITALS: BP 116/74; PULSE 116; RESP 16; TEMP 38.4; O2SAT 93
[2021-06-25] MEDS: METOCLOPRAMIDE HCL INJ 10 MG/2 ML VIAL 5 MG IV PUSH ×4 (04:21→19:01)
[2021-06-25] MEDS: HEPARIN SODIUM 5,000 UNITS/ML VIAL 5000 UNITS SUB-Q ×3 (05:40→22:18)
[2021-06-25 06:00] VITALS: BP 100/54; PULSE 101; RESP 16; TEMP 36.7; O2SAT 94
[2021-06-25 09:11] LABS: Hematocrit 25.4 % (42.0-52.0); Hemoglobin 8.1 g/dL (14.0-18.0); Mean Corpuscular HGB Conc 31.9 g/dl (32-36); Mean Corpuscular Hemoglobin 27.4 pg (26-34); Mean Corpuscular Volume 85.8 fl (80-100); Mean Platelet Volume 9.2 fl (7.4-10.4); Platelet Count Result 172 k/mm3 (150-375); Red Blood Count 2.96 M/mm3 (4.6-6.20); Red Cell Distribution Width 20.8 % (11.5-14.5)
[2021-06-25 09:17] LABS: Anion Gap 8 mmol/L (8-16); Blood Urea Nitrogen 2 mg/dL (9-20); Calcium 6.6 mg/dL (8.4-10.2); Carbon Dioxide 22 mmol/L (22-30); Chloride 98 mmol/L (98-107); Estimated CRCL calculation 125 ml/min; Estimated Glomerular Filt Rate > 60; Glucose 123 mg/dL (65-110); Potassium 3.6 mmol/L (3.4-5.0); Sodium 128 mmol/L (137-145)
[2021-06-25] MEDS: MAGNESIUM OXIDE 400 MG TABLET PO ×3 (10:14→18:00)
[2021-06-25] MEDS: PSYLLIUM POWDER PACKET 1 PACKET PO (10:14)
[2021-06-25] MEDS: PANTOPRAZOLE SODIUM IV 40 MG VIAL IV PUSH ×2 (10:14→22:18)
[2021-06-25] MEDS: TAMSULOSIN HCL 0.4 MG CAPSULE PO (10:14)
[2021-06-25] MEDS: ACIDOPHILUS/BULGARICUS CHEWABLE TABLET 1 TABLET PO ×4 (10:14→22:17)
[2021-06-25] MEDS: POLYSACCHARIDE IRON COMPLEX 150 MG CAPSULE PO (10:14)
[2021-06-25] MEDS: FINASTERIDE 5 MG TABLET PO (10:14)
[2021-06-25 14:00] VITALS: BP 106/67; PULSE 115; RESP 18; TEMP 38.6; O2SAT 96
--- NOTE | 2021-06-25 14:04 | PCPTNOTE ---
Patient refused treatment this session. Will continue per PT plan of care.
[2021-06-25 15:34] VITALS: BMI 24.7
[2021-06-25 16:36] VITALS: TEMP 37.6
[2021-06-25 16:39] VITALS: TEMP 37.6
[2021-06-25] MEDS: ACETAMINOPHEN 325 MG TABLET 650 MG PO (16:39)
[2021-06-25 17:35] VITALS: TEMP 36.8
--- NOTE | 2021-06-25 19:01 | P.PNIM_ITS ---
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 2/2 pseudo-obstruction Resolved with NG decompression Appreciate GI and General surgery consults Gastric contents negative for occult blood. Analgesics and antiemetics available as needed (3) Acute urinary retention: Code(s): R33.8 - Other retention of urine Status: Acute Assessment and Plan: PERSISTS, D/C with Roa Bladder distention evident on CT and patient endorsed decreased urine output Failed voiding trial Place Roa catheter Consult to urology Keep roa in place for 7-10 days then follow up with Urology for further evaluation and voiding trial. Urology will then refer him to Dr. Ayala or Zac for a prostate cancer consultation as he states he has never seen a urologist or had a prostate biopsy. Started Flomax and finasteride today. (4) Pneumonia: Qualifiers: Laterality: right Lung location: lower lobe of lung Pneumonia type: due to unspecified organism Qualified Code(s): J18.9 - Pneumonia, unspecified organism Code(s): J18.9 - Pneumonia, unspecified organism Status: Acute Assessment and Plan: 06/17/2021 CXR shows patchy bilateral airspace disease compatible with pneumonia 06/17/2021 started treatment with IV ceftriaxone and azithromycin for coverage of community-acquired pneumonia now on day 4 of IV antibiotics, on room air, F/U CXR ordered. Aspiration pneumonia considered given emesis but felt to be unlikely with bilateral findings. ST eval performed with no dysphagia. Continue regular diet COVID and influenza negative Urinary legionella and pneumococcal antigens PENDING 06/17/2021 Blood cultures negative , 06/16/2021 UA clear. Supportive care. Patient denies respiratory symptoms. Maintaining adequate O2 sats. Leukocytosis improved to 12.6 the yesterday up to 14.2, gave IVFs and then today WBC 11.8 Ferritin elevated at >2000. LDH abdnormal 1118 yest, then 1097 today, CRP abnorm al 13.9 yest and then 16.2 today. Continue iv rocephin and zithromax (5) Electrolyte abnormality: Code(s): E87.8 - Other disorders of electrolyte and fluid balance, not elsewhere classified Status: Acute Assessment and Plan: Hyponatremia: Likely secondary to dehydration. Improved with IV fluids to 130 then dropped to 128 and further to 126 today. Hypokalemia: Likely secondary to vomiting and poor PO intake. 2.9 to 3.0 today. 40 mEq PO KCl twice, improved to 3.5 Hypocalcemia: Calcium levels low at 6.8 Continue to monitor electrolytes (6) Anemia: Code(s): D64.9 - Anemia, unspecified Status: Acute Assessment and Plan: Suspect 2/2 cancer and chemotherapy, 06/18/2021 iron level low and iron binding capacity low H&H reviewed and relatively consistent with baseline F/U with his Hemo/oncology after discharge (7) Prostate cancer metastatic to bone: Onset Date: Unknown Code(s): C61 - Malignant neoplasm of prostate; C79.51 - Secondary malignant neoplasm of bone Status: Acute
[2021-06-25 19:30] LABS: Add Urine Microscopic? NO; Appearance Urine Clear (Clear); Bilirubin Urine Negative (Negative); Blood Urine Negative (Negative); Color Urine Colorless (Yellow); Glucose Urine UA Negative (Negative); Ketones Urine Negative (Negative); Leukocyte Esterase Ur Negative LEU/UL (Negative); Nitrate Urine Negative (Negative); Protein Urine Negative (Negative); Urobilinogen Urine Negative mg/dL (<2.0)
[2021-06-25 22:00] VITALS: BP 106/67; PULSE 94; RESP 18; TEMP 36.6; O2SAT 97
[2021-06-25] MEDS: MELATONIN 3 MG TABLET PO (22:17)
[2021-06-25] MEDS: GABAPENTIN 300 MG CAPSULE PO (22:17)
[2021-06-25] MEDS: SODIUM CHLORIDE 1 GM TABLET PO (22:17)
[2021-06-26] VITALS (13 sets, daily range): BP systolic 103–121; BP diastolic 59–78; PULSE 99–110; RESP 18–26; TEMP 37–38.1; O2SAT 95–99
[2021-06-26] MEDS: METOCLOPRAMIDE HCL INJ 10 MG/2 ML VIAL 5 MG IV PUSH ×4 (00:15→18:07)
[2021-06-26] MEDS: HEPARIN SODIUM 5,000 UNITS/ML VIAL 5000 UNITS SUB-Q ×3 (06:18→21:57)
[2021-06-26 07:32] LABS: Basophils Percent Auto 0.3 % (0.2-1.2); Eosinophils Absolute Auto 0.1 K/mm3 (0-0.3); Eosinophils Percent Auto 1.5 % (0-4.4); Hematocrit 22.8 % (42.0-52.0); Hemoglobin 7.3 g/dL (14.0-18.0); Immature Granulocyte Absolute 0.17 K/mm3 (0.00-0.031); Immature Granulocyte Percent A 1.9 % (0-0.5); Lymphocytes Absolute Auto 1.53 K/mm3 (0.9-3.2); Lymphocytes Percent Auto 17.3 % (18.3-44.2); Mean Corpuscular Hemoglobin 27.2 pg (26-34); Mean Corpuscular Volume 85.1 fl (80-100); Mean Platelet Volume 9.4 fl (7.4-10.4); Monocytes Absolute Auto 0.6 K/mm3 (0.1-0.6); Monocytes Percent Auto 6.7 % (2.6-8.5); Neutrophils Absolute Auto 6.4 K/mm3 (1.3-6.7); Neutrophils Percent Auto 72.3 % (45.5-73.1); Platelet Count Result 174 k/mm3 (150-375); Red Blood Count 2.68 M/mm3 (4.6-6.20); Red Cell Distribution Width 20.5 % (11.5-14.5); White Blood Count 8.8 K/mm3 (4.5-10.0)
[2021-06-26 07:47] LABS: Anion Gap 7 mmol/L (8-16); Blood Urea Nitrogen 2 mg/dL (9-20); Calcium 6.7 mg/dL (8.4-10.2); Carbon Dioxide 22 mmol/L (22-30); Chloride 99 mmol/L (98-107); Estimated CRCL calculation 152 ml/min; Estimated Glomerular Filt Rate > 60; Glucose 128 mg/dL (65-110); Magnesium 2.1 mg/dL (1.6-2.3); Potassium 3.2 mmol/L (3.4-5.0); Sodium 128 mmol/L (137-145)
[2021-06-26] MEDS: SODIUM CHLORIDE 1 GM TABLET PO ×2 (08:12→16:30)
[2021-06-26] MEDS: FINASTERIDE 5 MG TABLET PO (08:12)
[2021-06-26] MEDS: TAMSULOSIN HCL 0.4 MG CAPSULE PO (08:12)
[2021-06-26] MEDS: ACIDOPHILUS/BULGARICUS CHEWABLE TABLET 1 TABLET PO ×4 (08:12→21:57)
[2021-06-26] MEDS: PANTOPRAZOLE SODIUM IV 40 MG VIAL IV PUSH ×2 (08:12→21:57)
[2021-06-26] MEDS: POLYSACCHARIDE IRON COMPLEX 150 MG CAPSULE PO (08:12)
[2021-06-26] MEDS: PSYLLIUM POWDER PACKET 1 PACKET PO (08:12)
[2021-06-26] MEDS: GABAPENTIN 300 MG CAPSULE PO ×2 (08:13→16:30)
[2021-06-26 10:57] LABS: SARS-CoV-2 RNA PCR Negative
--- NOTE | 2021-06-26 12:50 | WPDONCPN ---
Progress Note: A/P - Additional Plan Castrate resistant metastatic prostate cancer. Patient was not able to tolerate chemotherapy with Taxotere and had difficult time with second-line chemotherapy with cabazitaxel. At this time I will check PSA. He may need reimaging study based on the PSA finding. I will hold further chemotherapy until patient is more stronger and complete rehabilitation. Follow-up with my office in 7-10 days for resumption of chemotherapy with dose reduction. Anemia. This is secondary to bone marrow involvement with prostate cancer. I will transfuse 1 unit of packed red blood cells prior to discharge to the rehab. Small-bowel pseudo obstruction. Patient is feeling much better and able to tolerate food. - Time Spent With Patient Total time spent is greater than 50% in coordination of care (as documented) at patient's floor/unit and/or counseling patient: 25 - 35 minutes Subjective Interval history: Metastatic prostate cancer Review of Systems - Review of Systems Patient denies any bone pain. He is eating better. He remains quite tired and fatigued. Denies any fevers and chills. No bleeding including melena hematochezia. He seems to be depressed. No other new complaint. - Neurologic Reports system reviewed and no additional complaints, except as documented, Reports hearing normal, Reports abnormal gait, Reports numbness, Reports sensory deficit (right foot), Reports tingling, Reports paresthesias, Reports weakness, Denies syncope, Denies headache(s), Denies restless legs, Denies seizure-like activity Exam Vital signs: Temp Pulse Resp BP Pulse Ox 37.2 C 99 18 103/63 99 06/26/21 06:00 06/26/21 06:00 06/26/21 06:00 06/26/21 06:00 06/26/21 06:00 Narrative: Lungs are clear to auscultation bilaterally Cardiovascular regular rate rhythm no murmur Abdomen soft nontender nondistended bowel sounds are positive Extremities no edema PN: Objective Data - Labs CBC & Chem 7: 06/26/21 06:38 06/26/21 06:38 Labs: Laboratory Results - last 24 hr 06/25/21 06/25/21 06/26/21 19:05 22:22 06:38 WBC 8.8 RBC 2.68 L Hgb 7.3 L Hct 22.8 L MCV 85.1 MCH 27.2 MCHC 32.0 RDW 20.5 H Plt Count 174 MPV 9.4 Immature Gran % (Auto) 1.9 H Neut % (Auto) 72.3 Lymph % (Auto) 17.3 L Chaves % (Auto) 6.7 Eos % (Auto) 1.5 Baso % (Auto) 0.3 Lymph # (Auto) 1.53 Chaves # (Auto) 0.6 Eos # (Auto) 0.1 Baso # (Auto) 0.0 Abs Immat Gran (auto) 0.17 H Absolute Neuts (auto) 6.4 Absolute Nucleated RBC 0.0 Nucleated RBC % 0.0 Sodium Potassium Chloride Carbon Dioxide Anion Gap BUN Creatinine Estim Creat Clear Calc Estimated GFR Glucose Calcium Magnesium Urine Color Colorless Urine Appearance Clear Urine pH 6.0 Ur Specific Zaleski 1.000 L Urine Protein Negative Urine Glucose (UA) Negative Urine Ketones Negative Ur Blood (Man) Negative Urine Nitrate Negative Urine Bilirubin Negative Urine Urobilinogen Negative Leukocyte Esterase Rfl Negative SARS-CoV-2 RNA (RT-PCR) Negative 06/26/21 06:38 WBC RBC Hgb Hct MCV MCH MCHC RDW Plt Count MPV Immature Gran % (Auto) Neut % (Auto) Lymph % (Auto) Chaves % (Auto) Eos % (Auto) Baso % (Auto) Lymph # (Auto) Chaves # (Auto) Eos # (Auto) Baso # (Auto) Abs Immat Gran (auto) Absolute Neuts (auto) Absolute Nucleated RBC Nucleated RBC % Sodium 128 L Potassium 3.2 L Chloride 99 Carbon Dioxide 22 Anion Gap 7 L BUN 2 L Creatinine 0.40 L Estim Creat Clear Calc 152 Estimated GFR > 60 Glucose 128 H Calcium 6.7 L Magnesium 2.1 Urine Color Urine Appearance Urine pH Ur Specific Zaleski Urine Protein Urine Glucose (UA) Urine Ketones Ur Blood (Man) Urine Nitrate Urine Bilirubin Urine Urobilinogen Leukocyte Esterase Rfl SARS-CoV-2 RNA (RT-PCR)
[2021-06-26] MEDS: SODIUM CHLORIDE 0.9% IV 250 ML 30 ML IV CONT (15:01)
[2021-06-26 15:04] LABS: Prostate Specific Antigen > 100.0 ng/mL (< OR = 4.0)
[2021-06-26] MEDS: POTASSIUM CHLORIDE 20 MEQ TABLET 40 MEQ PO (16:29)
[2021-06-26] MEDS: MELATONIN 3 MG TABLET PO (21:57)
[2021-06-27] VITALS (7 sets, daily range): BP systolic 100–122; BP diastolic 66–85; PULSE 88–110; RESP 16–18; TEMP 36.7–37.7; O2SAT 96–98
[2021-06-27] MEDS: METOCLOPRAMIDE HCL INJ 10 MG/2 ML VIAL 5 MG IV PUSH ×4 (01:06→17:06)
[2021-06-27] MEDS: ACETAMINOPHEN 325 MG TABLET 650 MG PO (01:06)
[2021-06-27] MEDS: HEPARIN SODIUM 5,000 UNITS/ML VIAL 5000 UNITS SUB-Q ×3 (05:46→21:20)
[2021-06-27 06:57] LABS: Basophils Percent Auto 0.5 % (0.2-1.2); Eosinophils Absolute Auto 0.2 K/mm3 (0-0.3); Eosinophils Percent Auto 2.8 % (0-4.4); Hematocrit 30.4 % (42.0-52.0); Hemoglobin 9.9 g/dL (14.0-18.0); Immature Granulocyte Absolute 0.24 K/mm3 (0.00-0.031); Immature Granulocyte Percent A 3.2 % (0-0.5); Lymphocytes Absolute Auto 1.44 K/mm3 (0.9-3.2); Mean Corpuscular HGB Conc 32.6 g/dl (32-36); Mean Corpuscular Hemoglobin 27.7 pg (26-34); Mean Corpuscular Volume 85.2 fl (80-100); Monocytes Absolute Auto 0.5 K/mm3 (0.1-0.6); Monocytes Percent Auto 6.7 % (2.6-8.5); Neutrophils Absolute Auto 5.1 K/mm3 (1.3-6.7); Neutrophils Percent Auto 67.8 % (45.5-73.1); Nucleated Red Blood Cells Absolute Auto 0.1 K/mm3 (0.0-0.012); Nucleated Red Blood Cells Perc 0.8 % (0.0-0.2); Platelet Count Result 168 k/mm3 (150-375); Red Blood Count 3.57 M/mm3 (4.6-6.20); Red Cell Distribution Width 19.1 % (11.5-14.5); White Blood Count 7.6 K/mm3 (4.5-10.0)
[2021-06-27 06:59] LABS: Alanine Aminotransferase 24 U/L (4-50); Albumin Level 2.3 g/dL (3.5-5.1); Alkaline Phosphatase 215 U/L (38-126); Anion Gap 7 mmol/L (8-16); Aspartate Amino Transferase 51 U/L (17-59); Bilirubin,Total 0.5 mg/dL (0.2-1.3); Blood Urea Nitrogen 2 mg/dL (9-20); Calcium 6.9 mg/dL (8.4-10.2); Carbon Dioxide 24 mmol/L (22-30); Chloride 101 mmol/L (98-107); Estimated CRCL calculation 125 ml/min; Estimated Glomerular Filt Rate > 60; Glucose 115 mg/dL (65-110); Magnesium 2.2 mg/dL (1.6-2.3); Potassium 3.6 mmol/L (3.4-5.0); Sodium 132 mmol/L (137-145)
[2021-06-27] MEDS: PSYLLIUM POWDER PACKET 1 PACKET PO (09:09)
[2021-06-27] MEDS: GABAPENTIN 300 MG CAPSULE PO ×2 (09:09→17:06)
[2021-06-27] MEDS: POLYSACCHARIDE IRON COMPLEX 150 MG CAPSULE PO (09:09)
[2021-06-27] MEDS: PANTOPRAZOLE SODIUM IV 40 MG VIAL IV PUSH ×2 (09:09→21:19)
[2021-06-27] MEDS: POTASSIUM CHLORIDE 20 MEQ TABLET.ER PO (09:10)
[2021-06-27] MEDS: TAMSULOSIN HCL 0.4 MG CAPSULE PO (09:10)
[2021-06-27] MEDS: ACIDOPHILUS/BULGARICUS CHEWABLE TABLET 1 TABLET PO ×4 (09:10→21:19)
[2021-06-27] MEDS: SODIUM CHLORIDE 1 GM TABLET PO ×2 (09:10→17:06)
[2021-06-27] MEDS: FINASTERIDE 5 MG TABLET PO (09:10)
[2021-06-27] MEDS: MELATONIN 3 MG TABLET PO (21:19)
[2021-06-28] MEDS: METOCLOPRAMIDE HCL INJ 10 MG/2 ML VIAL 5 MG IV PUSH ×3 (00:31→12:56)
[2021-06-28 05:43] VITALS: BP 114/81; PULSE 53; RESP 18; TEMP 36.8; O2SAT 97
[2021-06-28] MEDS: HEPARIN SODIUM 5,000 UNITS/ML VIAL 5000 UNITS SUB-Q ×2 (05:43→15:40)
[2021-06-28 07:33] LABS: Basophils Absolute Auto 0.1 K/mm3 (0.0-0.1); Basophils Percent Auto 0.8 % (0.2-1.2); Eosinophils Absolute Auto 0.2 K/mm3 (0-0.3); Eosinophils Percent Auto 2.2 % (0-4.4); Hematocrit 31.2 % (42.0-52.0); Immature Granulocyte Absolute 0.25 K/mm3 (0.00-0.031); Immature Granulocyte Percent A 2.7 % (0-0.5); Lymphocytes Absolute Auto 1.53 K/mm3 (0.9-3.2); Lymphocytes Percent Auto 16.8 % (18.3-44.2); Mean Corpuscular HGB Conc 32.1 g/dl (32-36); Mean Corpuscular Hemoglobin 26.8 pg (26-34); Mean Corpuscular Volume 83.6 fl (80-100); Mean Platelet Volume 9.4 fl (7.4-10.4); Monocytes Absolute Auto 0.6 K/mm3 (0.1-0.6); Monocytes Percent Auto 6.5 % (2.6-8.5); Neutrophils Absolute Auto 6.5 K/mm3 (1.3-6.7); Nucleated Red Blood Cells Perc 0.2 % (0.0-0.2); Platelet Count Result 163 k/mm3 (150-375); Red Blood Count 3.73 M/mm3 (4.6-6.20); Red Cell Distribution Width 19.4 % (11.5-14.5); White Blood Count 9.1 K/mm3 (4.5-10.0)
[2021-06-28 07:42] LABS: Alanine Aminotransferase 29 U/L (4-50); Albumin Level 2.5 g/dL (3.5-5.1); Alkaline Phosphatase 234 U/L (38-126); Anion Gap 6 mmol/L (8-16); Aspartate Amino Transferase 52 U/L (17-59); Bilirubin,Total 0.3 mg/dL (0.2-1.3); Blood Urea Nitrogen 2 mg/dL (9-20); Calcium 7.1 mg/dL (8.4-10.2); Carbon Dioxide 22 mmol/L (22-30); Chloride 100 mmol/L (98-107); Estimated CRCL calculation 152 ml/min; Estimated Glomerular Filt Rate > 60; Glucose 111 mg/dL (65-110); Potassium 3.8 mmol/L (3.4-5.0); Sodium 128 mmol/L (137-145)
[2021-06-28 08:00] VITALS: O2SAT 97
[2021-06-28] MEDS: TAMSULOSIN HCL 0.4 MG CAPSULE PO (08:57)
[2021-06-28] MEDS: GABAPENTIN 300 MG CAPSULE PO (08:57)
[2021-06-28] MEDS: SODIUM CHLORIDE 1 GM TABLET PO (08:57)
[2021-06-28] MEDS: PANTOPRAZOLE SODIUM IV 40 MG VIAL IV PUSH (08:58)
[2021-06-28] MEDS: PSYLLIUM POWDER PACKET 1 PACKET PO (08:58)
[2021-06-28] MEDS: POTASSIUM CHLORIDE 20 MEQ TABLET.ER PO (08:58)
[2021-06-28] MEDS: ACIDOPHILUS/BULGARICUS CHEWABLE TABLET 1 TABLET PO ×2 (08:58→12:56)
[2021-06-28] MEDS: POLYSACCHARIDE IRON COMPLEX 150 MG CAPSULE PO (08:58)
[2021-06-28] MEDS: FINASTERIDE 5 MG TABLET PO (08:58)
--- NOTE | 2021-06-28 10:15 | PM.DS ---
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 2/2 pseudo-obstruction Resolved with NG decompression Appreciate GI and General surgery consults Gastric contents negative for occult blood. Analgesics and antiemetics available as needed (3) Acute urinary retention: Code(s): R33.8 - Other retention of urine Status: Acute Assessment and Plan: PERSISTS, D/C with Roa Bladder distention evident on CT and patient endorsed decreased urine output Failed voiding trial Place Roa catheter Consult to urology Keep roa in place for 7-10 days then follow up with Urology for further evaluation and voiding trial. Urology will then refer him to Dr. Ayala or Zac for a prostate cancer consultation as he states he has never seen a urologist or had a prostate biopsy. Started Flomax and finasteride today. (4) Pneumonia: Qualifiers: Laterality: right Lung location: lower lobe of lung Pneumonia type: due to unspecified organism Qualified Code(s): J18.9 - Pneumonia, unspecified organism Code(s): J18.9 - Pneumonia, unspecified organism Status: Acute Assessment and Plan: 06/17/2021 CXR shows patchy bilateral airspace disease compatible with pneumonia 06/17/2021 started treatment with IV ceftriaxone and azithromycin for coverage of community-acquired pneumonia now on day 4 of IV antibiotics, on room air, F/U CXR ordered. Aspiration pneumonia considered given emesis but felt to be unlikely with bilateral findings. ST eval performed with no dysphagia. Continue regular diet COVID and influenza negative Urinary legionella and pneumococcal antigens PENDING 06/17/2021 Blood cultures negative , 06/16/2021 UA clear. Supportive care. Patient denies respiratory symptoms. Maintaining adequate O2 sats. Leukocytosis improved to 12.6 the yesterday up to 14.2, gave IVFs and then today WBC 11.8 Ferritin elevated at >2000. LDH abdnormal 1118 yest, then 1097 today, CRP abnormal 13.9 yest and then 16.2 today. Continue iv rocephin and zithromax (5) Electrolyte abnormality: Code(s): E87.8 - Other disorders of electrolyte and fluid balance, not elsewhere classified Status: Acute Assessment and Plan: Hyponatremia: Likely secondary to dehydration. Improved with IV fluids to 130 then dropped to 128 and further to 126 today. Hypokalemia: Likely secondary to vomiting and poor PO intake. 2.9 to 3.6 today. 40 mEq PO KCl twice, improved to 3.5 Hypocalcemia: Calcium levels low at 6.8 Continue to monitor electrolytes (6) Anemia: Code(s): D64.9 - Anemia, unspecified Status: Acute Assessment and Plan: Suspect 2/2 cancer and chemotherapy, 06/18/2021 iron level low and iron binding capacity low H&H reviewed and relatively consistent with baseline F/U with his Hemo/oncology after discharge (7) Prostate cancer metastatic to bone: Onset Date: Unknown Code(s): C61 - Malignant neoplasm of prostate; C79.51 - Secondary malignant neoplasm of bone Status: Acute Assessment and Plan: Patient is undergoing chemotherapy. had 4 treatments. Scheduled for chemotherapy on 06/19/2021 which will be rescheduled in 1 week Also scheduled to start radiation; will proceed following discharge Continue treatment
[2021-06-28 14:00] VITALS: BP 105/73; PULSE 109; RESP 26; TEMP 36.2; O2SAT 96
== END 2021-06-28 16:35 | DRG 391 ==
LOC: ANHED 06-17 01:14 → ANH3MEDSUR 06-17 02:18
PROVIDERS: Family Medicine; Hospitalist; Nurse Practitioner; Physician Assistant; Admitting Provider Internal Medicine; Emergency Provider Emergency Medicine; PCP Internal Medicine Hematology & Oncology; Visit Provider Nurse Practitioner
DX: K59.81 Ogilvie syndrome (principal); J18.9 Pneumonia, unspecified organism; R53.2 Functional quadriplegia; E87.1 Hypo-osmolality and hyponatremia; C79.51 Secondary malignant neoplasm of bone; N17.9 Acute kidney failure, unspecified; Z20.822 Contact with and (suspected) exposure to COVID-19; C61 Malignant neoplasm of prostate; R11.12 Projectile vomiting; D35.2 Benign neoplasm of pituitary gland; R33.8 Other retention of urine; E86.0 Dehydration; E87.6 Hypokalemia; E83.51 Hypocalcemia; D64.81 Anemia due to antineoplastic chemotherapy; D63.0 Anemia in neoplastic disease; N13.9 Obstructive and reflux uropathy, unspecified; H53.2 Diplopia
CPT/HCPCS: 36415; 36430; 51701; 71045; 74018; 74177; 76775; 80048; 80053; 81001; 81003; 82271; 82274; 82607; 82728; 82746; 83540; 83550; 83605; 83615; 83690; 83735; 83880; 83986; 84100; 84132; 84153; 84295; 85014; 85018; 85025; 85027; 85610; 85730; 86140; 86850; 86900; 86901; 86920; 87015; 87040; 87045; 87177; 87209; 87269; 87272; 87324; 87427; 87449; 87804; 87899; 89055; 92610; 93005; 96361; 96365; 96367; 96372; 96375; 97110; 97116; 97161; 97165; 97530; 97535; 99285; A9270; C9113; C9803; G0378; J0456; J0696; J1170; J1644; J2405; J2543; J2765; J3475; J3480; J7030; J7040; J7042; J7050; J7060; P9016; Q9967; U0003; U0005

== ENCOUNTER 2021-07-01 09:33 | Emergency (ER) | payer OTHER, MEDICARE, SELFPAY ==
--- NOTE | ~2021-07-01 | US_ITS ---
US venous doppler [facility] DATE: 07/01/2021 10:15 INDICATION: Swelling of right lower extremity TECHNIQUE: Real-time and color flow imaging and Doppler analysis of the bilateral lower extremity vei ns COMPARISON: None FINDINGS: The greater saphenous veins are patent. There is spontaneous and phasic flow and normal aug mentation and color flow signal and normal compression of the deep veins of both lower extremities. IMPRESSION: No evidence of venous thrombosis of either leg Reviewed, dictated and finalized at [facility] Reviewed, dictated and finalized at [facility] [employer]
[2021-07-01 09:49] VITALS: BP 144/86; PULSE 81; RESP 16; TEMP 37.7; O2SAT 96
[2021-07-01 10:05] LABS: Basophils Absolute Auto 0.1 K/mm3 (0.0-0.1); Basophils Percent Auto 0.9 % (0.2-1.2); Eosinophils Absolute Auto 0.2 K/mm3 (0-0.3); Eosinophils Percent Auto 2.4 % (0-4.4); Hematocrit 29.7 % (42.0-52.0); Hemoglobin 9.7 g/dL (14.0-18.0); Immature Granulocyte Absolute 0.34 K/mm3 (0.00-0.031); Immature Granulocyte Percent A 4.5 % (0-0.5); Lymphocytes Absolute Auto 1.87 K/mm3 (0.9-3.2); Lymphocytes Percent Auto 24.6 % (18.3-44.2); Mean Corpuscular HGB Conc 32.7 g/dl (32-36); Mean Corpuscular Hemoglobin 27.4 pg (26-34); Mean Corpuscular Volume 83.9 fl (80-100); Mean Platelet Volume 8.7 fl (7.4-10.4); Monocytes Absolute Auto 0.6 K/mm3 (0.1-0.6); Monocytes Percent Auto 7.8 % (2.6-8.5); Neutrophils Absolute Auto 4.6 K/mm3 (1.3-6.7); Neutrophils Percent Auto 59.8 % (45.5-73.1); Platelet Count Result 198 k/mm3 (150-375); Red Blood Count 3.54 M/mm3 (4.6-6.20); Red Cell Distribution Width 19.5 % (11.5-14.5); White Blood Count 7.6 K/mm3 (4.5-10.0)
[2021-07-01 10:18] LABS: Anion Gap 10 mmol/L (8-16); Blood Urea Nitrogen 3 mg/dL (9-20); Calcium 7.2 mg/dL (8.4-10.2); Carbon Dioxide 16 mmol/L (22-30); Chloride 98 mmol/L (98-107); Estimated CRCL calculation 109 ml/min; Estimated Glomerular Filt Rate > 60; Glucose 105 mg/dL (65-110); Potassium 3.9 mmol/L (3.4-5.0); Sodium 124 mmol/L (137-145)
[2021-07-01 10:29] LABS: INR 1.3; Prothrombin Time 15.7 Seconds (11.1-14.7)
[2021-07-01 10:30] LABS: Partial Thromboplastin Time 35.3 SECONDS (22.3-36.8)
--- NOTE | 2021-07-01 10:41 | ED.LOWEXIN ---
HPI - Extremity Injury (Lower) General Chief Complaint: Extremity Injury, Lower Stated Complaint: lower leg edema Time Seen by Provider: 07/01/21 09:38 History of Present Illness HPI Narrative: Patient is a 65-year-old male who presents ER from his rehabilitation facility with concerns of DVT. He has had a swelling in his legs for 6 weeks that is resolved over the last day. He is also had paresthesias and tingling. He also developed lower extremity weakness. All of this is related to his most recent round of chemotherapy that he was given 6 weeks ago. He is receiving chemo for prostate cancer. Patient denies any chest pain or shortness of breath. No redness or calf/groin pain. No history of blood clots. He has been getting Lovenox over the last day in case he had a blood clot. Related Data Home Medications Medication Instructions Recorded Confirmed multivitamin 1 tablet PO DAILY 04/17/20 06/29/21 calcium See Rx Instructions .ROUTE .COMPLEX 05/30/20 06/29/21 ondansetron HCl 8 mg PO Q8H PRN 02/08/21 06/29/21 hydrocodone-acetaminophen 1 tablet PO Q4H PRN 04/09/21 06/29/21 Allergies Allergy/AdvReac Type Severity Reaction Status Date / Time No Known Allergies Allergy Verified 06/16/21 21:40 Review of Systems Review of Systems: All systems reviewed & are unremarkable except as noted in HPI and below Constitutional: Constitutional: Denies chills, Denies fever(s) and Denies weakness ENT: Denies nasal congestion and Denies sore throat Respiratory: Respiratory: Denies chest congestion, Denies dyspnea and Denies wheezing Gastrointestinal: Gastrointestinal: Denies abdominal pain, Denies nausea and Denies vomiting Musculoskeletal: Musculoskeletal: Denies muscle cramps Comments: Leg swelling Neurologic: Denies headache(s), Denies focal weakness and Denies numbness Comments: Tingling PMFSH Past Medical History Medical History (Updated 07/01/21 @ 10:58 by Anthony Newsome MD) Anemia Ileus Prostate cancer metastatic to bone (Unknown) Surgical History Surgical History (Updated 07/01/21 @ 10:51 by Anthony Newsome MD) No pertinent past surgical history Family History Family History Sibling Malignant neoplasm of prostate, Onset Age: 57 Father Malignant neoplasm of prostate Acute myocardial infarction Mother Cerebrovascular accident Social History Social History Smoking status: Never smoker Alcohol intake: former Alcohol use details: SOCIALLY IN PAST Substance use: never Substance use type: does not use Additional living arrangements comments: [facility] Gender identity (if verbalized by the patient): Male Spiritual care concerns: No Exam Narrative: GENERAL: Well-appearing, well-nourished, and in no acute distress. HEAD: Normocephalic, atraumatic. EYES: PERRL and EOMI. right eye ptosis ENT: Mucous membranes moist. CHEST: Clear to auscultation. No respiratory distress. HEART: Regular rate and rhythm. Normal peripheral pulses. EXTREMITIES: Normal range of motion. No edema. Chronic weakness lower extremities. SKIN: Warm, dry, no rash. NEURO: Alert and oriented x3. PSYCH: Normal mood and affect. Course Course Emergency Course: Patient informed results. Discharge home. Vital Signs Vital signs: Vital Signs Temperature 99.8 F H 07/01/21 09:49 Pulse Rate 81 07/01/21 09:49 Respiratory Rate 16 07/01/21 09:49 Blood Pressure 144/86 H 07/01/21 09:49 Pulse Oximetry 96 07/01/21 09:49 Temperature 99.8 F H 07/01/21 09:49 Pulse Rate 81 07/01/21 09:49 Respiratory Rate 16 07/01/21 09:49 Blood Pressure 144/86 H 07/01/21 09:49 Pulse Oximetry 96 07/01/21 09:49 MDM - Extremity Injury (Lower) Lab Data Result diagrams: 07/01/21 09:56 07/01/21 09:56 Labs: Lab Results 07/01/21 07/01/2107/01
--- NOTE | 2021-07-01 11:15 | PC.NURSE ---
Called [facility] fro transport back to [facility]. . [facility] states to use [facility] [employer] for transportation due to a contract with the company.
[2021-07-01 12:10] VITALS: BP 140/80; PULSE 84; RESP 16; O2SAT 98
== END 2021-07-01 12:11 | disposition home or self-care (01) ==
PROVIDERS: Emergency Provider Emergency Medicine; PCP Internal Medicine Hematology & Oncology
DX: R60.0 Localized edema (principal); C61 Malignant neoplasm of prostate; C79.51 Secondary malignant neoplasm of bone; D64.9 Anemia, unspecified; Z79.899 Other long term (current) drug therapy
CPT/HCPCS: 36415; 80048; 83735; 85025; 85610; 85730; 93970; 99284

== ENCOUNTER 2021-07-16 11:51 | Inpatient (IN) | payer MEDICARE, OTHER, SELFPAY ==
[2021-07-16] VITALS (41 sets, daily range): BP systolic 81–108; BP diastolic 57–82; PULSE 82–168; RESP 16–31; TEMP 36.2–40; O2SAT 92–100
--- NOTE | ~2021-07-16 | CT_ITS ---
EXAMINATION: CT abdomen pelvis wo con EXAM DATE: 07/16/2021 14:19 INDICATION: Severe colitis. TECHNIQUE: Spiral CT of the abdomen and pelvis was performed without contrast. Axial, coronal and s agittal images of the abdomen and pelvis were reviewed. The dose-length product (DLP) for this exami nation was 501.62 mGy-cm. The exposure was tailored according to patient size (auto mA exposure cont rol), and iterative reconstruction (ASIR) was used as additional dose reduction technique. Comparison is made to prior examination from 06/16/2021. FINDINGS: There is a cyst measuring 2 cm in the right liver lobe, smaller cysts in the left liver lob e. Bilateral adrenal masses, probably metastatic disease. Spleen, pancreas are unremarkable. There is cholelithiasis within an otherwise unremarkable gallbladder. No evidence of obstructive biliary dis ease. There is no nephrolithiasis or hydronephrosis. Prostate normal in size. Grande catheter with in the bladder. Some gas in the bladder lumen probably introduced through the Grande catheter. There i s moderate diffusely inflamed gallbladder wall, probably cystitis. There is no retroperitoneal or pe lvic lymphadenopathy. There is mild scattered arteriosclerotic disease. The appendix is normal. The stomach and small bowel are unremarkable. Moderate amount of colonic co ntents, appears to be liquid stool in the rectal vault. There is moderate amount of edema of the rect osigmoid colonic wall, could be colitis. Overall amount of distention has significantly improved comp ared to prior study. No free intraperitoneal gas. Small to moderate bilateral pleural effusions . Multi segmental right lower lobe, segmental left lower lobe atelectasis. The interventricular septu m is perceptible, suggesting patient is anemic. Heart appears normal in size. Diffuse osteoblastic d isease with regions of extraosseous extension. IMPRESSION: 1. Rectosigmoid colonic colitis with interval improvement in colonic distention. 2. Increase in size of small to moderate pleural effusions, adjacent atelectasis. 3. Bladder wall thickening, acute and/or chronic cystitis. Grande in position. 4. Adrenal masses which could be metastatic disease. 5. Diffuse osteoblastic disease. 6. Cholelithiasis. Reviewed, dictated and finalized at location B. RT FREIGHT MANAGER IMPRESSION: 1. Rectosigmoid colonic colitis with interval improvement in colonic distentio n. 2. Increase in size of small to moderate pleural effusions, adjacent atelectas is. 3. Bladder wall thickening, acute and/or chronic cystitis. Grande in position. 4. Adrenal masses which could be metastatic disease. 5. Diffuse osteoblastic disease. 6. Cholelithiasis.
--- NOTE | ~2021-07-16 | NM_ITS ---
EXAMINATION: NM bone scan whole body DATE: 07/18/2021 14:23 INDICATION: Metastatic prostate cancer TECHNIQUE: 23.6 mCi Tc-99m HDP was administered intravenously. Delayed whole-body scintigrams were o btained. COMPARISON: Bone scan dated 04/26/2021 and 01/22/2021 FINDINGS: Again seen are numerous foci of abnormal bone uptake scattered throughout the axial and proximal appe ndicular skeleton consistent with widespread metastatic disease. The lesions demonstrate increase in degree of activity uptake and appear increased in size, becoming nearly confluent along portions of s everal ribs. Linear activity at the right upper chest likely within a right internal jugular central venous port catheter. IMPRESSION: 1. Interval progression of widespread osseous metastatic disease throughout the axial and proximal ap pendicular skeleton. Reviewed, dictated and finalized at location A. OLOGY PROFESSOR IMPRESSION: 1. Interval progression of widespread osseous metastatic disease throughout the axial and proximal appendicular skeleton.
--- NOTE | ~2021-07-16 | MR_ITS ---
EXAMINATION: MR lumbar spine wo con DATE: 07/16/2021 18:21 INDICATION: Cauda equina syndrome. TECHNIQUE: Magnetic resonance imaging (MRI) of the lumbar spine was performed without intravenous con trast. Sequences included sagittal T2-weighted FSE, sagittal T2-weighted FS FSE, sagittal T1-weighted FSE, and axial T2-weighted FSE. COMPARISON: CT abdomen and pelvis 07/16/21, 07/31/2020 FINDINGS: There is 12 degrees dextroscoliosis of lumbar spine. There is widespread sclerosis of the b ones, consistent with metastatic disease. There is chronic 1/5 height loss of L5 vertebral body. Ther e is severely decreased disc height at L5-S1. The conus medullaris is at L1. There is clumping of cau da equina from L1 to S1. There are masses in the adrenal glands measuring up to 3.5 cm on the right. The following disc levels are specifically discussed: L1-L2: The disc is bulging. There is mild bilateral facet joint osteoarthritis. There is mild bilater al neural foraminal stenosis. There is mild central canal stenosis. L2-L3: The disc is bulging. There is moderate bilateral facet joint osteoarthritis. There is mild isai ateral neural foraminal stenosis. There is mild central canal stenosis. L3-L4: The disc is bulging. There is severe bilateral facet joint osteoarthritis. There is mild right and moderate left neural foraminal stenosis. There is mild central canal stenosis. L4-L5: The disc is bulging. There is severe bilateral facet joint osteoarthritis. There is moderate a nd mild left neural foraminal stenosis. There is mild central canal stenosis. L5-S1: The disc is bulging and has an annular fissure. There is severe right and mild left facet join t osteoarthritis. There is moderate bilateral neural foraminal stenosis. There is mild central canal stenosis. IMPRESSION: 1. Clumping of the cauda equina, which may be secondary to arachnoiditis. Postcontrast MRI is recomme nded to exclude mass effect from occult epidural fluid collections. 2. Widespread osseous metastatic disease and adrenal masses, consistent with metastatic disease. 3. Severe lower lumbar spondylosis. Reviewed, dictated and finalized at location E. WASHER IMPRESSION: 1. Clumping of the cauda equina, which may be secondary to arachnoiditis. Postc ontrast MRI is recommended to exclude mass effect from occult epidural fluid co llections. 2. Widespread osseous metastatic disease and adrenal masses, consistent with me tastatic disease. 3. Severe lower lumbar spondylosis.
--- NOTE | ~2021-07-16 | XR_ITS ---
EXAMINATION: XR chest 1V portable EXAM DATE: 07/16/2021 14:33 INDICATION: Fever. TECHNIQUE: Portable AP frontal chest x-ray was obtained. Comparison is made to prior examination from 06/17/2021. FINDINGS: Extensive osteoblastic disease. Right-sided portacatheter. Cardiomediastinal silhouette is normal. Small to moderate pleural effusions and adjacent atelectasis seen on CT not well appreciated on this exam. No pneumothorax. IMPRESSION: 1. Small to moderate pleural effusions, adjacent atelectasis not well seen. 2. Extensive osteoblastic disease. Reviewed, dictated and finalized at location B. ER ASSEMBLER
--- NOTE | ~2021-07-16 | MR_ITS ---
EXAMINATION: MR thoracic spine wo con DATE: 07/16/2021 18:22 INDICATION: Cauda equina syndrome. TECHNIQUE: Magnetic resonance imaging (MRI) of the thoracic spine was performed without intravenous c ontrast. Sagittal localizer T1-weighted FSE of the cervical spine was obtained. Thoracic spine sequen vera included sagittal T2-weighted FSE, sagittal T1-weighted FSE, sagittal T2-weighted FS FSE, and axi al T2-weighted FSE. COMPARISON: Chest CT 04/26/2021, 01/22/21 FINDINGS: There is 8 degrees levocurvature of upper thoracic spine. There is a chronic burst fracture of T3 with 2/5 height loss, retropulsion of bone 3 mm into central spinal canal, and mild central ca nal stenosis with ventral indentation of spinal cord. The burst fracture is stable from 01/22/21 There is widespread sclerosis involving the bones, consistent with metastatic disease. There is mildly dec reased disc height at multiple levels. At T4-T5, there is a right central protrusion with mild centra l canal stenosis. At T11-T12, disc is bulging with mild central canal stenosis. There is multilevel m ild facet joint osteoarthritis. There is mild neural foraminal stenosis at a few levels bilaterally. There are some areas of increased signal intensity involving the spinal cord that are likely secondar y to motion artifact. There are small pleural effusions. IMPRESSION: 1. Widespread osseous metastatic disease. 2. Mild thoracic spondylosis. 3. Motion artifact obscures evaluation of the spinal cord signal intensity. 4. Small pleural effusions. Reviewed, dictated and finalized at location E. OATER
[2021-07-16 14:04] LABS: Basophils Absolute Auto 0.1 K/mm3 (0.0-0.1); Basophils Percent Auto 0.4 % (0.2-1.2); Eosinophils Percent Auto 0.2 % (0-4.4); Hematocrit 30.5 % (42.0-52.0); Hemoglobin 9.6 g/dL (14.0-18.0); Immature Granulocyte Percent A 2.4 % (0-0.5); Lymphocytes Percent Auto 16.5 % (18.3-44.2); Mean Corpuscular HGB Conc 31.5 g/dl (32-36); Mean Corpuscular Hemoglobin 27.7 pg (26-34); Mean Corpuscular Volume 87.9 fl (80-100); Mean Platelet Volume 8.8 fl (7.4-10.4); Monocytes Absolute Auto 1.1 K/mm3 (0.1-0.6); Monocytes Percent Auto 6.7 % (2.6-8.5); Neutrophils Absolute Auto 12.1 K/mm3 (1.3-6.7); Neutrophils Percent Auto 73.8 % (45.5-73.1); Nucleated Red Blood Cells Perc 0.2 % (0.0-0.2); Platelet Count Result 305 k/mm3 (150-375); Red Blood Count 3.47 M/mm3 (4.6-6.20); Red Cell Distribution Width 20.8 % (11.5-14.5); White Blood Count 16.4 K/mm3 (4.5-10.0)
--- NOTE | 2021-07-16 14:12 | ED.FEVER ---
HPI - Fever General Chief Complaint: Fever Stated Complaint: FEVER,CHRONIC PAIN Time Seen by Provider: 07/16/21 12:48 Source: patient and family Mode of arrival: EMS Limitations: clinical condition History of Present Illness HPI Narrative: 65-year-old male Patient reports a history of prostate cancer which is widely metastatic and sounds like he is currently on his third or fourth different treatment which have all to this point failed to arrest the progression of his disease He always has weakness and chronic pain More recently he has had a intestinal obstruction or pseudoobstruction He also has had leg weakness since his last chemotherapy which he thought was supposed to improve his he became more remote from the treatment but in fact has gotten a little bit worse He was discharged to [facility] Last week he had diarrhea but no fever and really no abdominal pain and diagnosed with C. difficile and treatment for that begun, although patient and family are not exactly sure what he is getting, possibly po flagyl and iv vanco?, and this has been associated with some new incointinence of stool Today he feels worse and had a high fever and was sent to the ER for evaluation Related Data Home Medications Medication Instructions Recorded Confirmed multivitamin 1 tablet PO DAILY 04/17/20 06/29/21 calcium See Rx Instructions .ROUTE .COMPLEX 05/30/20 06/29/21 ondansetron HCl 8 mg PO Q8H PRN 02/08/21 06/29/21 hydrocodone-acetaminophen 1 tablet PO Q4H PRN 04/09/21 06/29/21 Allergies Allergy/AdvReac Type Severity Reaction Status Date / Time No Known Allergies Allergy Verified 06/16/21 21:40 Review of Systems Review of Systems: All systems reviewed & are unremarkable except as noted in HPI and below Constitutional: Constitutional: Reports no additional constitutional complaints, Reports chills, Reports fatigue, Reports fever(s) and Denies headache(s) Eyes: Eyes: Reports no additional eye complaints and Denies change in vision ENT: Denies headache(s) and Denies sore throat Cardiovascular: Cardiovascular: Denies chest pain and Denies dyspnea Respiratory: Respiratory: Denies cough and Denies dyspnea Gastrointestinal: Gastrointestinal: Denies abdominal pain, Reports diarrhea, Reports nausea and Denies vomiting Genitourinary: Genitourinary: Denies dysuria and Denies urinary frequency Musculoskeletal: Musculoskeletal: Reports back pain, Reports myalgias, Denies deformity, Reports arthralgias, Reports joint swelling and Denies numbness Integumentary/Breasts: Skin/Breast: Denies rash and Denies wounds Neurologic: Denies headache(s), Denies focal weakness, Denies numbness and Reports weakness Psychiatric: Psychiatric: Reports no additional psychiatric complaints Endocrine: Endocrine: Reports no additional endocrine complaints Hematologic/Lymphatic: Hematologic/Lymphatic: Reports no additional hematologic/lymphatic complaints Allergic/Immunologic: Allergic/Immunologic: Reports no additional allergic/immunologic complaints PMFSH Past Medical History Medical History Anemia Ileus Prostate cancer metastatic to bone (Unknown) Surgical History Surgical History No pertinent past surgical history Family History Family History Sibling Malignant neoplasm of prostate, Onset Age: 57 Father Malignant neoplasm of prostate Acute myocardial infarction Mother Cerebrovascular accident Social History Social History Smoking status: Never smoker Alcohol intake: former Alcohol use details: SOCIALLY IN PAST Substance use: never Substance use type: does not use Additional living arrangements comments: [facility] Gender identity (if verbalized by the patient): Male Spiritual care concerns: N
[2021-07-16 14:13] LABS: Alanine Aminotransferase 14 U/L (4-50); Albumin Level 2.6 g/dL (3.5-5.1); Alkaline Phosphatase 329 U/L (38-126); Anion Gap 6 mmol/L (8-16); Aspartate Amino Transferase 48 U/L (17-59); Bilirubin,Total 0.4 mg/dL (0.2-1.3); Blood Urea Nitrogen 4 mg/dL (9-20); Calcium 7.4 mg/dL (8.4-10.2); Carbon Dioxide 23 mmol/L (22-30); Chloride 98 mmol/L (98-107); Estimated CRCL calculation 152 ml/min; Estimated Glomerular Filt Rate > 60; Glucose 109 mg/dL (65-110); Potassium 3.1 mmol/L (3.4-5.0); Sodium 127 mmol/L (137-145)
[2021-07-16] MEDS: ONDANSETRON INJ 4 MG/2 ML VIAL IV PUSH (14:53)
[2021-07-16] MEDS: LACTATED RINGERS 1,000 ML 999 ML IV CONT ×2 (14:54→16:37)
--- NOTE | 2021-07-16 14:58 | PC.NURSE ---
Pt cleaned up from small BM. Pt HR spiked to 176 bpm while changing. Obtaining EKG now.
--- NOTE | 2021-07-16 15:00 | ECG_ITS ---
Measurements Intervals [place] Rate: 168 P: MA: 0 QRS: 63 QRSD: 82 T: -60 QT: 272 QTc: 455 Interpretive Statements SUPRAVENTRICULAR TACHYCARDIA DELAYED PRECORDIAL R/S TRANSITION NONSPECIFIC ST & T-WAVE ABNORMALITY- INF/LAT LEADS BASELINE ARTIFACT- II, III, AVR, AVL, AVF, V1-V6 ABNORMAL ECG Electronically Signed On 07-16-2021 15:15:31 QUALITY PROCESS LEAD by Garland Ridley D.O.
--- NOTE | 2021-07-16 15:05 | PC.NURSE ---
Pt has gone in and out of SVT about ten times in the last fifteen minutes. EKG completed and given to MD Duggan. Pt asymptomatic with the arrhythmia and was at rest when it occurred. Denies any history of arrhythmias. Pt and patient's (at bedside) self-proclaimed to this RN that pt does not wish to have compressions if his heart would stop. Pt educated on arrhythmia and metoprolol ordered.
[2021-07-16] MEDS: METOPROLOL TARTRATE INJ 5 MG/5 ML VIAL IV PUSH (15:11)
[2021-07-16] MEDS: POTASSIUM CHLORIDE 20 MEQ PACKET (FOR LIQUID) 60 MEQ PO (15:18)
[2021-07-16] MEDS: ACETAMINOPHEN 500 MG TABLET 1000 MG PO (15:19)
[2021-07-16 16:47] LABS: Add Urine Microscopic? YES; Appearance Urine Cloudy (Clear); Bacteria Urine Trace /hpf; Bilirubin Urine Negative (Negative); Blood Urine Negative (Negative); Color Urine Yellow (Yellow); Glucose Urine UA Negative (Negative); Ketones Urine Negative (Negative); Leukocyte Esterase Ur Trace LEU/UL (Negative); Mucus Urine Rare /lpf; Nitrate Urine Negative (Negative); Protein Urine Negative (Negative); Specific Grav Ur 1.012 (1.001-1.035); Urobilinogen Urine Negative mg/dL (<2.0)
[2021-07-16 17:04] LABS: SARS-CoV-2 RNA PCR Negative
--- NOTE | 2021-07-16 17:10 | PC.NURSE ---
Pt to MRI at this time.
--- NOTE | 2021-07-16 17:14 | PC.NURSE ---
Second set of blood cultures and lactate sent to lab. Pt has been poked peripherally 8x, needed to access port for additional labs that were previously unable to be obtained.
[2021-07-16 18:12] LABS: Lactic Acid Reflex 1.3 mmol/L (0.7-2.1)
[2021-07-16] MEDS: HYDROCORTISONE SODIUM SUCCINATE 100 MG/2 ML VIAL IV PUSH (19:23)
[2021-07-16] MEDS: cefTRIAXone 2 GM in SODIUM CHLORIDE 0.9% IV 100 ML 200 ML IVPB (19:26)
[2021-07-16] MEDS: metroNIDAZOLE 500 MG/ISO 100ML 500 MG/100 ML BAG 100 MG IVPB (19:28)
--- NOTE | 2021-07-16 20:31 | PM.IMHP ---
H&P: HPI History of Present Illness Date/Time: 07/16/21 20:31 Chief Complaint: Generalized weakness Narrative: This is a 65-year-old male with past medical history significant for metastatic prostate cancer, just recently discharged from the hospital where he was treated for pseudo colonic obstruction, C difficile colitis, chemotherapy-induced peripheral neuropathy, deconditioning. Patient had been discharged to rehabilitation facility but today he comes back due to extreme fatigue, he denies any fevers rigors chills however have patient with perspiration at the time of my visit, bilateral lower extremity pain, fecal incontinence, poor appetite. Preliminary workup has been significant for electrolyte abnormalities. Multiple imaging studies with a significant osteoblastic metastatic disease present throughout. Patient is been admitted for further evaluation management and treatment. Patient is hoping to regain strength so he can resume his chemotherapy sessions. Review of Systems Review of Systems: Fatigue, low energy, decreased stamina, fecal incontinence, bilateral lower extremity pain. Constitutional: Constitutional: Reports body ache(s), Denies chills, Reports fatigue, Denies fever(s), Reports lethargy, Reports malaise, Reports night sweats, Reports poor appetite and Reports weakness Eyes: Comments: Right ptosis ENT: Denies dysphagia, Denies nasal congestion, Denies nasal discharge, Denies nasal obstruction and Denies odynophagia Cardiovascular: Cardiovascular: Denies pedal edema, Denies leg edema, Denies radiating jaw, neck or arm pain, Denies palpitations, Denies dyspnea on exertion and Denies orthopnea Respiratory: Respiratory: Denies cough and Denies dyspnea Gastrointestinal: Gastrointestinal: Denies abdominal pain, Denies dyspepsia, Denies heartburn, Reports diarrhea and Denies nausea Genitourinary: Genitourinary: Denies dysuria Musculoskeletal: Musculoskeletal: Reports muscle weakness Integumentary/Breasts: Skin/Breast: Denies rash Neurologic: Denies focal weakness and Denies Sensory deficit (Neuro) Comments: Right ptosis Psychiatric: Psychiatric: Reports no additional psychiatric complaints and Reports as per HPI Endocrine: Endocrine: Denies cold intolerance, Denies heat intolerance, Denies polyphagia and Denies palpitations Hematologic/Lymphatic: Hematologic/Lymphatic: Reports no additional hematologic/lymphatic complaints and Reports as per HPI Allergic/Immunologic: Allergic/Immunologic: Reports no additional allergic/immunologic complaints and Reports as per HPI [facility] Past Medical History Medical History Anemia Ileus Prostate cancer metastatic to bone (Unknown) Surgical History Surgical History No pertinent past surgical history Family History Family History Sibling Malignant neoplasm of prostate, Onset Age: 57 Father Malignant neoplasm of prostate Acute myocardial infarction Mother Cerebrovascular accident Social History Social History Smoking status: Never smoker Alcohol intake: never Alcohol use details: SOCIALLY IN PAST Substance use: never Substance use type: does not use Additional living arrangements comments: [facility] Gender identity (if verbalized by the patient): Male Spiritual care concerns: No Meds Home Medications and Allergies Home Medications Medication Instructions Recorded Confirmed Type omega-3 fatty acids 1,000 mg 1,000 mg PO DAILY #30 cap 07/13/19 07/16/21 Rx capsule multivitamin 1 tablet PO DAILY 04/17/20 07/16/21 History calcium See Rx Instructions .ROUTE .COMPLEX 05/30/20 07/16/21 History ondansetron HCl 8 mg PO Q8H PRN 02/08/21 07/16/21 History hydrocodone-acetaminophen 1 tablet PO Q4H PRN 04/09/21 07/16/21 History finas
[2021-07-16] MEDS: FAMOTIDINE 20 MG/2 ML VIAL IV PUSH (21:30)
--- NOTE | 2021-07-16 21:50 | ADMGEN ---
This patient, Brent Garcia, was admitted to [facility] Room 301-01. Patient/family oriented to hospital policies and general routines including ID bracelet, bed and alarms, visiting hours, pain management, procedures, bathroom and other care routines, personal items, smoking policy, room service/diet, and visiting hours. Information on how to activate the Rapid Response Team has been discussed. Patient/Family are encouraged to report perceived risks to care and to ask questions if they do not understand what they are told or what they should do.
[2021-07-16] MEDS: CENTRAL LINE FLUSH 10 ML IV PUSH (22:00)
[2021-07-17] MEDS: SODIUM CHLORIDE 0.9% IV 1,000 ML 999 ML IV CONT (04:27)
[2021-07-17 05:35] VITALS: BP 90/60; PULSE 93; RESP 18; O2SAT 98
[2021-07-17] MEDS: ENOXAPARIN 40 MG/0.4 ML SYRINGE SUB-Q (09:25)
[2021-07-17] MEDS: OMEGA 3 POLYUNSAT FATTY ACIDS 1 GM CAP PO (09:26)
[2021-07-17] MEDS: POTASSIUM CHLORIDE 20 MEQ TABLET.ER PO (09:26)
[2021-07-17] MEDS: SODIUM CHLORIDE 1 GM TABLET PO ×2 (09:26→17:00)
[2021-07-17] MEDS: FLUCONAZOLE 100 MG TABLET PO (09:26)
[2021-07-17] MEDS: MULTIVITS W-FE,MIN CHEWABLE TABLET 1 TABLET PO (09:26)
[2021-07-17] MEDS: FINASTERIDE 5 MG TABLET PO (09:27)
[2021-07-17] MEDS: TAMSULOSIN HCL 0.4 MG CAPSULE PO (09:27)
[2021-07-17] MEDS: metroNIDAZOLE 250 MG TABLET 500 MG PO (09:27)
[2021-07-17] MEDS: CENTRAL LINE FLUSH 10 ML IV PUSH ×3 (09:28→20:17)
[2021-07-17] MEDS: POLYSACCHARIDE IRON COMPLEX 150 MG CAPSULE PO (09:30)
[2021-07-17] MEDS: CYCLOBENZAPRINE HCL 10 MG TABLET PO (11:17)
[2021-07-17] MEDS: HYDROcodone/acetaminophen (*CRX) 5-325 MG TABLET 1 TAB PO ×2 (11:17→17:00)
[2021-07-17] MEDS: FAMOTIDINE 20 MG/2 ML VIAL IV PUSH ×2 (12:02→20:17)
[2021-07-17] MEDS: CALCIUM CARBONATE (OSCAL) 500 MG TABLET PO ×3 (12:02→20:17)
[2021-07-17 12:33] LABS: Basophils Percent Auto 0.3 % (0.2-1.2); Eosinophils Percent Auto 0.1 % (0-4.4); Hematocrit 26.7 % (42.0-52.0); Hemoglobin 8.4 g/dL (14.0-18.0); Immature Granulocyte Percent A 4.4 % (0-0.5); Lymphocytes Absolute Auto 1.96 K/mm3 (0.9-3.2); Lymphocytes Percent Auto 12.4 % (18.3-44.2); Mean Corpuscular HGB Conc 31.5 g/dl (32-36); Mean Corpuscular Hemoglobin 27.6 pg (26-34); Mean Corpuscular Volume 87.8 fl (80-100); Mean Platelet Volume 9.1 fl (7.4-10.4); Monocytes Absolute Auto 0.9 K/mm3 (0.1-0.6); Monocytes Percent Auto 5.6 % (2.6-8.5); Neutrophils Absolute Auto 12.2 K/mm3 (1.3-6.7); Neutrophils Percent Auto 77.2 % (45.5-73.1); Nucleated Red Blood Cells Perc 0.1 % (0.0-0.2); Platelet Count Result 297 k/mm3 (150-375); Red Blood Count 3.04 M/mm3 (4.6-6.20); Red Cell Distribution Width 20.4 % (11.5-14.5); White Blood Count 15.8 K/mm3 (4.5-10.0)
--- NOTE | 2021-07-17 12:39 | PM.IMPN ---
Progress Note: A&P Assessment and Plan (1) Fever: Code(s): R50.9 - Fever, unspecified Status: Acute Assessment and Plan: Patient was hospitalized here from 06/16-06/28 for colonic pseudo-obstruction, urine retention, and pneumonia. He is transferred to acute rehab. Patient was doing well with rehab until he began to have fevers a few days prior to admisison. UA showed yeast and Diflucan started. Left knee was warm but that resolved. He had BCx drawn but not avialbel for my viewing. He was started on Cefepime and Vanco but continued to have fevers without clear source so he was sent to the ED for evaluation. Patient sent to the emergency room because of increasing weakness and fever. Influenza screen was negative. COVID test was negative. Chest x-ray showed small to moderate pleural effusions with atelectasis. UA was not consistent with UTI[place] [id number]. BCx NGTD. Patient with recent C difficile colitis which could be playing a factor. CT scan showed rectosigmoid colonic colitis with improvement of the colonic distension as well as bladder wall thickening. Cholelithiasis noted as well but not felt to have cholecystitis. Fever could be secondary to extensive metastatic prostate cancer. Continue to monitor temperature curve. Not on antibiotics. Check procalcitonin (2) Paroxysmal supraventricular tachycardia: Code(s): I47.1 - Supraventricular tachycardia Status: Acute Assessment and Plan: HR has not been documented to be elevated but EKG showing SVT. Likely secondary to severe deconditioning. Continue supportive care. Place on tele (3) Physical deconditioning: Code(s): R53.81 - Other malaise Status: Acute Assessment and Plan: Patient very weak with worsening in his lower extremities. He also has probable urine retention and stool continence. Thoracic MRI without contrast showed widespread osseous metastatic disease but motion artifact obscures evaluation of the spinal cord. Lumbar MRI without contrast showed clumping of the cauda equina which may be secondary to arachnoiditis as well as widespread osseous metastatic disease. He may have cauda equina syndrome related to his cancer. Will discuss with Oncology about plan of care. He may need repeat MRI of the lumbar spine if he is still a candidate for continued cancer treatment. (4) Malignant neoplasm of prostate metastatic to bone: Code(s): C61 - Malignant neoplasm of prostate; C79.51 - Secondary malignant neoplasm of bone Status: Acute Assessment and Plan: Patient here from rehabilitation. He is hoping to regain strength and resume chemotherapy treatment. Heme-Onc consult ordered. Await their input. (5) Hyponatremia: Code(s): E87.1 - Hypo-osmolality and hyponatremia Status: Acute Assessment and Plan: Na 127 which is probably at baseline. Continue sodium tablets. Currently on IV fluids. Check urine studies. Stop IV fluids (6) Quadriplegia: Code(s): G82.50 - Quadriplegia, unspecified Status: Acute Assessment and Plan: Functional however patient with metastatic lesions in his spine clumping of the cauda equina. As above. Start PT/OT. Consider further imaging of the lumbar spine with MRI and contrast. (7) Severe muscle deconditioning: Code(s): R29.898 - Other symptoms and signs involving the musculoskeletal system Status: Acute Assessment and Plan: Secondary to terminal illness (8) C. difficile colitis: Code(s): A04.72 - Enterocolitis due to Clostridium difficile, not specified as recurrent Status: Acute Assessment and Plan: By the notes from the rehab, the patient was having diarrhea and stool studies sent. On 07/05, he was diagnosed with C difficile diarhea and started on Flagly. He has completed [address] scan here still showing rectosigmoid colonic colitis. Will change to oral Vanco (9) E
[2021-07-17 12:47] LABS: Albumin Level 2.1 g/dL (3.5-5.1); Anion Gap 2 mmol/L (8-16); Blood Urea Nitrogen 7 mg/dL (9-20); Calcium 6.8 mg/dL (8.4-10.2); Carbon Dioxide 22 mmol/L (22-30); Chloride 103 mmol/L (98-107); Estimated CRCL calculation 152 ml/min; Estimated Glomerular Filt Rate > 60; Glucose 136 mg/dL (65-110); Phosphorus 1.5 mg/dL (2.5-4.5); Potassium 3.4 mmol/L (3.4-5.0); Sodium 127 mmol/L (137-145)
[2021-07-17 12:57] VITALS: BMI 23.7
--- NOTE | 2021-07-17 13:02 | PDONCCN ---
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 Patient was started on second-line chemotherapy with cabazitaxel and received last treatment on May 21. He was admitted to the hospital with abdominal distention bloating along with nausea vomiting. He was diagnosed with paralytic ileus. He was subsequently discharged to the rehab. Now he came back into the hospital with bilateral lower extremity weakness and possible fecal incontinence and diarrhea. Is complaining of excessive tiredness and fatigue. Patient was found to be anemic with hemoglobin of 8.4. He denies any melena hematochezia or any other bleeding. His bone pain is under good control. Review of Systems - Review of Systems All systems reviewed & are unremarkable except as noted in HPI and bel - Neurologic Reports weakness, Denies headache(s), Denies focal weakness, Denies numbness, Denies sensory deficit PMFSH Medical History: Medical History (Last Reviewed 07/16/21 @ 16:27 by Mark Duggan MD) Anemia Ileus Prostate cancer metastatic to bone Onset Date: Unknown Surgical History: Surgical History (Last Reviewed 07/16/21 @ 16:27 by Mark Duggan MD) No pertinent past surgical history Family History: Family History (Last Reviewed 07/16/21 @ 21:51 by Jacqui Haider RN) Sibling Malignant neoplasm of prostate, Onset Age: 57 Father Malignant neoplasm of prostate Acute myocardial infarction Mother Cerebrovascular accident - Social History Social History: Social History (Last Reviewed 07/16/21 @ 16:27 by Mark Duggan MD) Gender Identity: Gender identity (if verbalized by the patient): Male Alcohol Use: Alcohol intake: never Alcohol use details: SOCIALLY IN PAST Substance Use: Substance use: never Substance use type: does not use Others: Spiritual care concerns: No Smoking Status: Smoking status: Never smoker Meds Home Medications Medication Instructions Recorded Confirmed Type omega-3 fatty acids 1,000 mg 1,000 mg PO DAILY #30 cap 07/13/19 07/16/21 Rx capsule multivitamin 1 tablet PO DAILY 04/17/20 07/16/21 History calcium See Rx Instructions .ROUTE .COMPLEX 05/30/20 07/16/21 History ondansetron HCl 8 mg PO Q8H PRN 02/08/21 07/16/21 History hydrocodone-acetaminophen 1 tablet PO Q4H PRN 04/09/21 07/16/21 History finasteride [Proscar] 5 mg PO QAM 30 Days #30 tablet 06/28/21 07/16/21 Rx polysaccharide iron complex 150 mg PO DAILY@0800 #30 cap 06/28/21 07/16/21 Rx potassium chloride [K-Tab] 20 meq PO DAILY@0800 #30 tablet 06/28/21 07/16/21 Rx tamsulosin 0.4 mg PO QAM #30 cap 06/28/21 07/16/21 Rx furosemide 20 mg PO DAILY #30 tablet 07/12/21 07/16/21 Rx gabapentin 900 mg PO BEDTIME #30 tablet 07/12/21 07/16/21 Rx metronidazole 500 mg PO Q8HR #15 tablet 07/12/21 07/16/21 Rx sodium chloride 1 g PO TID #90 tablet 07/12/21 07/16/21 Rx acetaminophen 650 mg PO Q4H PRN 07/16/21 07/16/21 History cyclobenzaprine 10 mg PO BID PRN 07/16/21 07/16/21 History enoxaparin 40 mg SUBCUT DAILY 07/16/21 07/16/21 History ferrous sulfate 650 mg PO DAILY 07/16/21 07/16/21 History fluconazole 100 mg PO DAILY 07/16/21 07/16/21 History Allergies Allergy/AdvReac Type Severity Reaction Status Date / Time No Known Allergies Allergy Verified 06/16/21 21:40 Results - Labs CBC & Chem 7: 07/17/21 12:22 07/17/21 12:22 Labs: Short CBC 07/16/21 07/17/21 Range/Units 13:58 12:22 WBC 16.4 H 15.8 H (4.5-10.0) K/mm3 Hgb 9.6 L 8.4 L (14.0-18.0) g/dL Hct 30.5 L 26.7 L (42.0-52.0) % Plt Count 305 297 (150-375) k/mm3 [facility] 07/16/21 07/17/21 13:58 12:22 Sodium
[2021-07-17 13:52] LABS: Thyroid Stimulating Hormone Reflex < 0.015 uIU/mL (0.465-4.68)
[2021-07-17 14:00] VITALS: BP 104/64; PULSE 97; RESP 18; TEMP 36.9; O2SAT 97
[2021-07-17 14:20] LABS: Iron 35 ug/dL (49-181)
[2021-07-17 14:29] LABS: Percent Iron Saturation 44 % (20-50)
[2021-07-17 14:30] LABS: Free T4 Free Thyroxine Reflex 0.93 ng/dL (0.78-2.19)
[2021-07-17 14:34] LABS: Procalcitonin 0.3 ng/mL
[2021-07-17 14:43] LABS: Folic Acid 7.7 ng/mL (2.76->20)
[2021-07-17 16:14] LABS: Ferritin > 2000.00 ng/mL (11.1-264)
[2021-07-17] MEDS: VANCOMYCIN ORAL 125 MG/2.5 ML SYRUP PO (17:01)
[2021-07-17 20:00] VITALS: PULSE 170; PULSE 95; RESP 16; O2SAT 97
[2021-07-17 20:16] LABS: Sodium Urine Random 20 meq/L
[2021-07-17] MEDS: GABAPENTIN 300 MG CAPSULE 900 MG PO (20:17)
[2021-07-17 21:20] LABS: Total Triiodothyronine (T3) 0.51 NG/ML (0.97-1.69)
[2021-07-17 21:35] VITALS: BP 82/70; PULSE 99; RESP 16; TEMP 36.9; O2SAT 97
[2021-07-18] VITALS (17 sets, daily range): BP systolic 95–124; BP diastolic 56–83; PULSE 100–170; RESP 16–25; TEMP 36.9–38.9; O2SAT 92–97; BMI 29.7
--- NOTE | 2021-07-18 00:14 | ECG_ITS ---
Measurements Intervals [place] Rate: 164 P: AL: 0 QRS: 45 QRSD: 76 T: 0 QT: 202 QTc: 334 Interpretive Statements SUPRAVENTRICULAR TACHYCARDIA VENTRICULAR PREMATURE COMPLEX NONSPECIFIC ST & T-WAVE ABNORMALITY- DIFFUSE LEADS ABNORMAL ECG Electronically Signed On 07-18-2021 6:31:34 SIGNING AGENT by Garland Ridley D.O.
[2021-07-18] MEDS: SODIUM CHLORIDE 0.9% IV 500 ML 999 ML IV CONT (00:26)
[2021-07-18] MEDS: VANCOMYCIN ORAL 125 MG/2.5 ML SYRUP PO ×4 (00:42→18:15)
[2021-07-18] MEDS: METOPROLOL TARTRATE INJ 5 MG/5 ML VIAL IV PUSH (00:48)
[2021-07-18] MEDS: SODIUM CHLORIDE 0.9% IV 500 ML IV CONT (01:15)
[2021-07-18] MEDS: CENTRAL LINE FLUSH 10 ML IV PUSH ×2 (05:52→20:13)
[2021-07-18] MEDS: HEPARIN SODIUM LOCK FLUSH 500 UNITS/5 ML VIAL IV PUSH (06:50)
[2021-07-18 07:03] LABS: Basophils Absolute Auto 0.1 K/mm3 (0.0-0.1); Basophils Percent Auto 0.4 % (0.2-1.2); Eosinophils Absolute Auto 0.1 K/mm3 (0-0.3); Eosinophils Percent Auto 0.4 % (0-4.4); Hematocrit 25.6 % (42.0-52.0); Hemoglobin 8.2 g/dL (14.0-18.0); Immature Granulocyte Absolute 0.68 K/mm3 (0.00-0.031); Lymphocytes Absolute Auto 1.98 K/mm3 (0.9-3.2); Lymphocytes Percent Auto 14.5 % (18.3-44.2); Mean Corpuscular Hemoglobin 28.1 pg (26-34); Mean Corpuscular Volume 87.7 fl (80-100); Mean Platelet Volume 9.2 fl (7.4-10.4); Monocytes Absolute Auto 0.8 K/mm3 (0.1-0.6); Neutrophils Absolute Auto 10.1 K/mm3 (1.3-6.7); Neutrophils Percent Auto 73.7 % (45.5-73.1); Nucleated Red Blood Cells Absolute Auto 0.1 K/mm3 (0.0-0.012); Nucleated Red Blood Cells Perc 0.5 % (0.0-0.2); Platelet Count Result 291 k/mm3 (150-375); Red Blood Count 2.92 M/mm3 (4.6-6.20); Red Cell Distribution Width 20.8 % (11.5-14.5); White Blood Count 13.7 K/mm3 (4.5-10.0)
[2021-07-18 07:13] LABS: Alanine Aminotransferase 13 U/L (4-50); Albumin Level 2.1 g/dL (3.5-5.1); Alkaline Phosphatase 261 U/L (38-126); Anion Gap 4 mmol/L (8-16); Aspartate Amino Transferase 69 U/L (17-59); Bilirubin,Total 0.2 mg/dL (0.2-1.3); Blood Urea Nitrogen 6 mg/dL (9-20); Calcium 6.7 mg/dL (8.4-10.2); Carbon Dioxide 21 mmol/L (22-30); Chloride 105 mmol/L (98-107); Estimated CRCL calculation 143 ml/min; Estimated Glomerular Filt Rate > 60; Glucose 94 mg/dL (65-110); Magnesium 1.9 mg/dL (1.6-2.3); Phosphorus 1.7 mg/dL (2.5-4.5); Potassium 3.4 mmol/L (3.4-5.0); Sodium 130 mmol/L (137-145)
[2021-07-18] MEDS: TAMSULOSIN HCL 0.4 MG CAPSULE PO (09:00)
[2021-07-18] MEDS: MULTIVITS W-FE,MIN CHEWABLE TABLET 1 TABLET PO (09:00)
[2021-07-18] MEDS: FINASTERIDE 5 MG TABLET PO (09:00)
[2021-07-18] MEDS: POLYSACCHARIDE IRON COMPLEX 150 MG CAPSULE PO (09:00)
[2021-07-18] MEDS: ENOXAPARIN 40 MG/0.4 ML SYRINGE SUB-Q (09:00)
[2021-07-18] MEDS: SODIUM CHLORIDE 1 GM TABLET PO ×3 (09:00→18:16)
[2021-07-18] MEDS: CALCIUM CARBONATE (OSCAL) 500 MG TABLET PO ×5 (09:00→20:13)
[2021-07-18] MEDS: OMEGA 3 POLYUNSAT FATTY ACIDS 1 GM CAP PO (09:00)
[2021-07-18] MEDS: FLUCONAZOLE 100 MG TABLET PO (09:00)
[2021-07-18] MEDS: POTASSIUM/PHOSPHORUS/SODIUM 1.5 GM PACKET 1 PACKET PO ×2 (09:02→12:12)
--- NOTE | 2021-07-18 11:12 | PM.IMPN ---
Progress Note: A&P Assessment and Plan (1) Fever: Code(s): R50.9 - Fever, unspecified Status: Acute Assessment and Plan: Patient was hospitalized here from 06/16-06/28 for colonic pseudo-obstruction, urine retention, and pneumonia. He is transferred to acute rehab on 06/28. Patient was doing well with rehab until he began to have fevers a few days prior to admission. UA showed yeast and Diflucan started. Left knee was warm but that resolved. He had BCx drawn but not avialble for my viewing. He was started on Cefepime and Vanco but continued to have fevers without clear source so he was sent to the ED for evaluation for weakness and fever. In the ED, influenza screen was negative. COVID test was negative. Chest x-ray showed small to moderate pleural effusions with atelectasis. UA was not consistent with UTI[place] [address]. BCx NGTD. Patient with recent C difficile colitis which could be playing a factor. CT scan showed rectosigmoid colonic colitis with improvement of the colonic distension as well as bladder wall thickening. Cholelithiasis noted as well but not felt to have cholecystitis. Fever could be secondary to extensive metastatic prostate cancer. Abx were held. Procalcitonin was 0.3. BCx have returned positive with Gram positive cocci in clusters (1of2) so Vanco added. Still with fevers but not septic appearing. Continue to monitor temperature curve. Follow up on blood culture results. Still suspect fever related to extensive metastatic disease. If patient is still a candidate for cancer treatment, we would consider repeating his MRI of the brain (last done in May 2021). (2) Paroxysmal supraventricular tachycardia: Code(s): I47.1 - Supraventricular tachycardia Status: Acute Assessment and Plan: HR has not been documented to be elevated but EKG showing SVT. Likely secondary to severe deconditioning and electrolyte abnormalities. Tele showing intermittent episodes of SVT. TSH <0.015 but FT4 normal at 0.93 and he has a pituitary mass that is probably contributing to the low TSH. Add metoprolol. Continue supportive care. Continue tele. Add low dose Synthroid. (3) Electrolyte abnormality: Code(s): E87.8 - Other disorders of electrolyte and fluid balance, not elsewhere classified Status: Acute Assessment and Plan: Phos low at 1.7 so probably re-feeding syndrome. Replace phos. Potassium 3.4 but already on replacement. Calcium 6.7 but ALbumin 2.1 (corrected 8.2). Mag okay. Follow and replace. (4) Physical deconditioning: Code(s): R53.81 - Other malaise Status: Acute Assessment and Plan: Patient very weak with worsening in his lower extremities. He also has probable urine retention and stool continence. Thoracic MRI without contrast showed widespread osseous metastatic disease but motion artifact obscures evaluation of the spinal cord. Lumbar MRI without contrast showed clumping of the cauda equina which may be secondary to arachnoiditis as well as widespread osseous metastatic disease. He may have cauda equina syndrome related to his cancer. Bone scan ordered. He may need repeat MRI of the lumbar spine if he is still a candidate for continued cancer treatment. Continue PT/OT. (5) Malignant neoplasm of prostate metastatic to bone: Code(s): C61 - Malignant neoplasm of prostate; C79.51 - Secondary malignant neoplasm of bone Status: Acute Assessment and Plan: Patient here from rehabilitation. He is hoping to regain strength and resume chemotherapy treatment. Heme-Onc consulted and bone scan ordered. Hospice being considered. (6) Hyponatremia: Code(s): E87.1 - Hypo-osmolality and hyponatremia Status: Acute Assessment and Plan: Na 127 on admission. [place] 20 with FENa 0.05%. IV fluids started and Na 130 today. Continue sodium tablets. Monitor off IV fluids. (7) Quadriplegia: Code(s): G82.50 - Quadrip
[2021-07-18] MEDS: POTASSIUM CHLORIDE 20 MEQ TABLET.ER PO (11:20)
[2021-07-18] MEDS: FAMOTIDINE 20 MG/2 ML VIAL IV PUSH ×2 (11:20→20:13)
[2021-07-18] MEDS: LEVOTHYROXINE SODIUM 25 MCG TABLET PO (12:31)
[2021-07-18] MEDS: METOPROLOL TARTRATE 6.25 MG TABLET PO ×2 (12:32→20:12)
--- NOTE | 2021-07-18 14:07 | PC.NURSE ---
On 07/18/21, the student, [ Shaina Redmond], provided care and completed [facility] documentation on this patient. The RN was notified of the pt's temp and HR. I have reviewed the student's documentation and agree with the findings.
[2021-07-18] MEDS: GABAPENTIN 300 MG CAPSULE 900 MG PO (20:12)
[2021-07-19] VITALS (13 sets, daily range): BP systolic 95–106; BP diastolic 59–66; PULSE 74–117; RESP 20; TEMP 37–38.6; O2SAT 93–96
[2021-07-19] MEDS: VANCOMYCIN ORAL 125 MG/2.5 ML SYRUP PO ×5 (00:33→23:18)
[2021-07-19] MEDS: METOPROLOL TARTRATE 6.25 MG TABLET PO ×3 (03:22→20:07)
[2021-07-19] MEDS: ACETAMINOPHEN 325 MG TABLET 650 MG PO (05:26)
[2021-07-19] MEDS: LEVOTHYROXINE SODIUM 25 MCG TABLET PO (05:28)
[2021-07-19] MEDS: CENTRAL LINE FLUSH 10 ML IV PUSH ×3 (05:28→20:08)
[2021-07-19 05:48] LABS: Basophils Absolute Auto 0.1 K/mm3 (0.0-0.1); Basophils Percent Auto 0.4 % (0.2-1.2); Eosinophils Absolute Auto 0.1 K/mm3 (0-0.3); Eosinophils Percent Auto 0.4 % (0-4.4); Hematocrit 26.1 % (42.0-52.0); Hemoglobin 8.3 g/dL (14.0-18.0); Immature Granulocyte Absolute 0.83 K/mm3 (0.00-0.031); Immature Granulocyte Percent A 5.5 % (0-0.5); Lymphocytes Absolute Auto 2.99 K/mm3 (0.9-3.2); Lymphocytes Percent Auto 19.7 % (18.3-44.2); Mean Corpuscular HGB Conc 31.8 g/dl (32-36); Mean Corpuscular Hemoglobin 27.4 pg (26-34); Mean Corpuscular Volume 86.1 fl (80-100); Mean Platelet Volume 8.7 fl (7.4-10.4); Monocytes Absolute Auto 0.9 K/mm3 (0.1-0.6); Monocytes Percent Auto 5.7 % (2.6-8.5); Neutrophils Absolute Auto 10.4 K/mm3 (1.3-6.7); Neutrophils Percent Auto 68.3 % (45.5-73.1); Nucleated Red Blood Cells Absolute Auto 0.2 K/mm3 (0.0-0.012); Nucleated Red Blood Cells Perc 1.1 % (0.0-0.2); Platelet Count Result 273 k/mm3 (150-375); Red Blood Count 3.03 M/mm3 (4.6-6.20); Red Cell Distribution Width 21.1 % (11.5-14.5); White Blood Count 15.2 K/mm3 (4.5-10.0)
[2021-07-19 05:58] LABS: Potassium 3.5 mmol/L (3.4-5.0)
[2021-07-19 05:59] LABS: Alanine Aminotransferase 13 U/L (4-50); Albumin Level 2.2 g/dL (3.5-5.1); Alkaline Phosphatase 259 U/L (38-126); Anion Gap 1 mmol/L (8-16); Aspartate Amino Transferase 73 U/L (17-59); Bilirubin,Total 0.8 mg/dL (0.2-1.3); Blood Urea Nitrogen 5 mg/dL (9-20); Calcium 6.6 mg/dL (8.4-10.2); Carbon Dioxide 22 mmol/L (22-30); Chloride 102 mmol/L (98-107); Estimated CRCL calculation 117 ml/min; Estimated Glomerular Filt Rate > 60; Glucose 83 mg/dL (65-110); Magnesium 1.9 mg/dL (1.6-2.3); Phosphorus 1.5 mg/dL (2.5-4.5); Sodium 125 mmol/L (137-145)
[2021-07-19 07:08] LABS: Anisocytosis 1+ (NORMAL); Ovalocytes 1+ (NORMAL); Platelet Estimate Adequate (Adequate); Poikilocytosis 1+ (NORMAL)
[2021-07-19] MEDS: ENOXAPARIN 40 MG/0.4 ML SYRINGE SUB-Q (08:26)
[2021-07-19] MEDS: OMEGA 3 POLYUNSAT FATTY ACIDS 1 GM CAP PO (08:27)
[2021-07-19] MEDS: POLYSACCHARIDE IRON COMPLEX 150 MG CAPSULE PO (08:27)
[2021-07-19] MEDS: FINASTERIDE 5 MG TABLET PO (08:28)
[2021-07-19] MEDS: FAMOTIDINE 20 MG/2 ML VIAL IV PUSH ×2 (08:28→20:08)
[2021-07-19] MEDS: MULTIVITS W-FE,MIN CHEWABLE TABLET 1 TABLET PO (08:28)
[2021-07-19] MEDS: CALCIUM CARBONATE (OSCAL) 500 MG TABLET PO ×5 (08:28→20:07)
[2021-07-19] MEDS: POTASSIUM CHLORIDE 20 MEQ TABLET.ER PO (08:28)
[2021-07-19] MEDS: FLUCONAZOLE 100 MG TABLET PO (08:29)
[2021-07-19] MEDS: TAMSULOSIN HCL 0.4 MG CAPSULE PO (08:29)
[2021-07-19] MEDS: SODIUM CHLORIDE 1 GM TABLET PO ×3 (08:29→16:19)
[2021-07-19] MEDS: POTASSIUM/PHOSPHORUS/SODIUM 1.5 GM PACKET 1 PACKET PO ×2 (08:35→12:12)
--- NOTE | 2021-07-19 08:37 | PCOTNOTE ---
D/C order for therapy evaluation, pt. going hospice
[2021-07-19 13:39] LABS: Vancomycin Trough 8.1 ug/mL (10.0-20.0)
--- NOTE | 2021-07-19 13:39 | PM.IMPN ---
Progress Note: A&P Assessment and Plan (1) Fever: Code(s): R50.9 - Fever, unspecified Status: Acute Assessment and Plan: Patient was hospitalized here from 06/16-06/28 for colonic pseudo-obstruction, urine retention, and pneumonia. He is transferred to acute rehab on 06/28. Patient was doing well with rehab until he began to have fevers a few days prior to admission. UA showed yeast and Diflucan started. Left knee was warm but that resolved. He had BCx drawn but not avialble for my viewing. He was started on Cefepime and Vanco but continued to have fevers without clear source so he was sent to the ED for evaluation for weakness and fever. In the ED, influenza screen was negative. COVID test was negative. Chest x-ray showed small to moderate pleural effusions with atelectasis. UA was not consistent with UTI[place] [address]172. BCx NGTD. Patient with recent C difficile colitis which could be playing a factor. CT scan showed rectosigmoid colonic colitis with improvement of the colonic distension as well as bladder wall thickening. Cholelithiasis noted as well but not felt to have cholecystitis. Fever could be secondary to extensive metastatic prostate cancer. Abx were held. Procalcitonin was 0.3. BCx have returned positive so vanco added but culture growing Coag Negative Staph (1of2) so probably a contaminant. Still with fevers but not septic appearing. Suspect fever related to extensive metastatic disease. (2) Paroxysmal supraventricular tachycardia: Code(s): I47.1 - Supraventricular tachycardia Status: Acute Assessment and Plan: HR has not been documented to be elevated but EKG showing SVT. Likely secondary to severe deconditioning and electrolyte abnormalities. Tele showing intermittent episodes of SVT. TSH <0.015 but FT4 normal at 0.93 and he has a pituitary mass that is probably contributing to the low TSH. Metoprolol added with good results. (3) Electrolyte abnormality: Code(s): E87.8 - Other disorders of electrolyte and fluid balance, not elsewhere classified Status: Acute Assessment and Plan: Phos low again and will replace. (4) Physical deconditioning: Code(s): R53.81 - Other malaise Status: Acute Assessment and Plan: Patient very weak with worsening in his lower extremities. He also has probable urine retention and stool continence. Thoracic MRI without contrast showed widespread osseous metastatic disease but motion artifact obscures evaluation of the spinal cord. Lumbar MRI without contrast showed clumping of the cauda equina which may be secondary to arachnoiditis as well as widespread osseous metastatic disease. He may have cauda equina syndrome related to his cancer. Bone scan as below. Comfort measures now. (5) Malignant neoplasm of prostate metastatic to bone: Code(s): C61 - Malignant neoplasm of prostate; C79.51 - Secondary malignant neoplasm of bone Status: Acute Assessment and Plan: Bone scan showing progression of disease. Patient unable to tolerate the chemo treatment. Heme-Onc recommended Hospice and patient and family agreee. Hospice at home being arranged. (6) Hyponatremia: Code(s): E87.1 - Hypo-osmolality and hyponatremia Status: Acute Assessment and Plan: Na 127 on admission. Latoya 20 with FENa 0.05%. IV fluids started and Na improved but worse today again at 125. Continue sodium tablets. (7) Quadriplegia: Code(s): G82.50 - Quadriplegia, unspecified Status: Acute Assessment and Plan: Functional however patient with metastatic lesions in his spine clumping of the cauda equina. As above. Bone scan showing interval progression of widespread osseous metastatic disease throughout the axial and proximal appendicular skeleton. As above. (8) Severe muscle deconditioning: Code(s): R29.898 - Other symptoms and signs involving the musculoskeletal system
[2021-07-19] MEDS: GABAPENTIN 300 MG CAPSULE 900 MG PO (20:08)
[2021-07-20] MEDS: HYDROcodone/acetaminophen (*CRX) 5-325 MG TABLET 1 TAB PO ×2 (04:28→09:32)
[2021-07-20 04:29] VITALS: PULSE 68
[2021-07-20] MEDS: METOPROLOL TARTRATE 6.25 MG TABLET PO ×2 (04:29→09:28)
[2021-07-20] MEDS: LEVOTHYROXINE SODIUM 25 MCG TABLET PO (05:27)
[2021-07-20] MEDS: VANCOMYCIN ORAL 125 MG/2.5 ML SYRUP PO (05:27)
[2021-07-20] MEDS: CENTRAL LINE FLUSH 10 ML IV PUSH (05:28)
[2021-07-20 05:41] VITALS: BP 104/60; PULSE 87; RESP 20; TEMP 37.2; O2SAT 92
[2021-07-20] MEDS: ENOXAPARIN 40 MG/0.4 ML SYRINGE SUB-Q (09:26)
[2021-07-20] MEDS: TAMSULOSIN HCL 0.4 MG CAPSULE PO (09:27)
[2021-07-20] MEDS: MULTIVITS W-FE,MIN CHEWABLE TABLET 1 TABLET PO (09:27)
[2021-07-20] MEDS: OMEGA 3 POLYUNSAT FATTY ACIDS 1 GM CAP PO (09:27)
[2021-07-20] MEDS: CALCIUM CARBONATE (OSCAL) 500 MG TABLET PO (09:27)
[2021-07-20] MEDS: FLUCONAZOLE 100 MG TABLET PO (09:27)
[2021-07-20 09:28] VITALS: PULSE 104
[2021-07-20] MEDS: FINASTERIDE 5 MG TABLET PO (09:28)
[2021-07-20] MEDS: SODIUM CHLORIDE 1 GM TABLET PO (09:28)
[2021-07-20] MEDS: POLYSACCHARIDE IRON COMPLEX 150 MG CAPSULE PO (09:28)
[2021-07-20] MEDS: POTASSIUM CHLORIDE 20 MEQ TABLET.ER PO (09:29)
[2021-07-20] MEDS: FAMOTIDINE 20 MG/2 ML VIAL IV PUSH (09:29)
[2021-07-20] MEDS: CYCLOBENZAPRINE HCL 10 MG TABLET PO (09:32)
--- NOTE | 2021-07-20 09:57 | PM.DS ---
DS: Admitting Diagnosis Discharge Date 07/20/21 Admitting Diagnosis Generalized weakness DS: Discharge Diagnosis Discharge Diagnosis (1) Fever: Code(s): R50.9 - Fever, unspecified Status: Acute Assessment and Plan: Patient was hospitalized here from 06/16-06/28 for colonic pseudo-obstruction, urine retention, and pneumonia. He is transferred to acute rehab on 06/28. Patient was doing well with rehab until he began to have fevers a few days prior to admission. UA showed yeast and Diflucan started. Left knee was warm but that resolved. He had BCx drawn but not avialble for my viewing. He was started on Cefepime and Vanco but continued to have fevers without clear source so he was sent to the ED for evaluation for weakness and fever. In the ED, influenza screen was negative. COVID test was negative. Chest x-ray showed small to moderate pleural effusions with atelectasis. UA was not consistent with UTI. [place] 19973. Patient with recent C difficile colitis which could be playing a factor but had completed treatment. CT scan showed rectosigmoid colonic colitis with improvement of the colonic distension as well as bladder wall thickening. Cholelithiasis noted as well but not felt to have cholecystitis. Procalcitonin was 0.3. BCx have returned positive so vanco added but culture growing Coag Negative Staph (1of2) so probably a contaminant. Still with fevers but not septic appearing. Suspect fever related to extensive metastatic disease. (2) Paroxysmal supraventricular tachycardia: Code(s): I47.1 - Supraventricular tachycardia Status: Acute Assessment and Plan: HR has not been documented to be elevated but EKG showing SVT. Likely secondary to severe deconditioning and electrolyte abnormalities. Tele showing intermittent episodes of SVT. TSH <0.015 but FT4 normal at 0.93 and he has a pituitary mass that is probably contributing to the low TSH. Metoprolol added with good results. (3) Electrolyte abnormality: Code(s): E87.8 - Other disorders of electrolyte and fluid balance, not elsewhere classified Status: Acute Assessment and Plan: Phos low at times and was replaced. (4) Physical deconditioning: Code(s): R53.81 - Other malaise Status: Acute Assessment and Plan: Patient very weak with worsening in his lower extremities. He also has urine retention and stool continence. Thoracic MRI without contrast showed widespread osseous metastatic disease but motion artifact obscures evaluation of the spinal cord. Lumbar MRI without contrast showed clumping of the cauda equina which may be secondary to arachnoiditis as well as widespread osseous metastatic disease. He may have cauda equina syndrome related to his cancer. Bone scan as below. Comfort measures started. (5) Malignant neoplasm of prostate metastatic to bone: Code(s): C61 - Malignant neoplasm of prostate; C79.51 - Secondary malignant neoplasm of bone Status: Acute Assessment and Plan: Bone scan showing progression of disease. Patient unable to tolerate the chemo treatment. Heme-Onc recommended Hospice and patient and family agreee. Hospice at home being arranged. Plan discharge today. (6) Hyponatremia: Code(s): E87.1 - Hypo-osmolality and hyponatremia Status: Acute Assessment and Plan: Na 127 on admission. Latoya 20 with FENa 0.05%. IV fluids started. We continued sodium tablets. (7) Quadriplegia: Code(s): G82.50 - Quadriplegia, unspecified Status: Acute Assessment and Plan: Functional however patient with metastatic lesions in his spine clumping of the cauda equina. As above. Bone scan showing interval progression of widespread osseous metastatic disease throughout the axial and proximal appendicular skeleton. As above. (8) Severe muscle deconditioning: Code(s): R29.898 - Other symptoms and signs involving the muscul
[2021-07-20] MEDS: NEOMYCIN/POLYMYXIN/BACITRACIN OINTMENT PACKET 1 PACKET (11:02)
[2021-07-20] MEDS: HEPARIN SODIUM LOCK FLUSH 500 UNITS/5 ML VIAL IV PUSH (11:02)
== END 2021-07-20 12:50 | disposition hospice, home (50) | DRG 542 ==
LOC: ANHED 16:40 → ANH3MEDSUR 19:22
PROVIDERS: Internal Medicine; Admitting Provider Internal Medicine; Emergency Provider Emergency Medicine; PCP Internal Medicine Hematology & Oncology; Visit Provider Internal Medicine
DX: C79.51 Secondary malignant neoplasm of bone (principal); R53.2 Functional quadriplegia; I47.1 Supraventricular tachycardia; A04.72 Enterocolitis due to Clostridium difficile, not specified as recurrent; E22.2 Syndrome of inappropriate secretion of antidiuretic hormone; C61 Malignant neoplasm of prostate; Z20.822 Contact with and (suspected) exposure to COVID-19; D64.9 Anemia, unspecified; G62.0 Drug-induced polyneuropathy; T45.1X5A Adverse effect of antineoplastic and immunosuppressive drugs, initial encounter
CPT/HCPCS: 36415; 71045; 72146; 72148; 74176; 78306; 80053; 80069; 80202; 81001; 82533; 82570; 82607; 82728; 82746; 83540; 83550; 83605; 83735; 84100; 84145; 84300; 84439; 84443; 84480; 85025; 87040; 87077; 87186; 87804; 93005; 96361; 96374; 96375; 97110; 97161; 97530; 99285; A9270; A9561; C9803; J0696; J1642; J1650; J1720; J2405; J3370; J7030; J7040; J7120; U0003; U0005